=== PATIENT | female | born 1945 | race Caucasian/White ===

== ENCOUNTER 2017-07-27 11:20 | Emergency (ER) | payer MEDICARE ==
--- NOTE | 2017-07-27 11:44 | EDM.PDOC ---
ED HPI GENERAL MEDICAL PROBLEM - General Chief Complaint: Cardiovascular Problem Stated Complaint: AFIB Time Seen by Provider: 07/27/17 11:38 Source of Information: Reports: Patient, Family History Limitations: Reports: No Limitations - History of Present Illness INITIAL COMMENTS - FREE TEXT/NARRATIVE: pt arrived with a history of going into atrial fib on sat nite. She has a history of atrial fib and was converted in Nov 2016. Onset: Other ( sat nite. ) Duration: Hour(s):, Other (pt is becoming more sob. ) Location: Reports: Chest Improves with: Reports: None Associated Symptoms: Reports: Shortness of Breath Chest Pain Score (Numeric/FACES): 3 - Related Data Allergies Allergy/AdvReac Type Severity Reaction Status Date / Time amitriptyline Allergy Insomnia Verified 07/27/17 11:39 ampicillin Allergy Itching Verified 07/27/17 11:39 buspirone [From BuSpar] Allergy Other Verified 07/27/17 11:39 cephalexin Allergy Rash Verified 07/27/17 11:39 doxycycline Allergy Itching Verified 07/27/17 11:39 duloxetine [From Cymbalta] Allergy Cannot Verified 07/27/17 11:39 Remember erythromycin base Allergy Itching Verified 07/27/17 11:39 escitalopram [From Lexapro] Allergy Cannot Verified 07/27/17 11:39 Remember hydromorphone [From Dilaudid] Allergy Pain Verified 07/27/17 11:39 Iodinated Contrast- Oral and Allergy Rash Verified 07/27/17 11:39 IV Dye [Iodinated Contrast Media - Oral and] metronidazole Allergy Cannot Verified 07/27/17 11:39 Remember nortriptyline [From Pamelor] Allergy Insomnia Verified 07/27/17 11:39 paroxetine [From Paxil] Allergy Headache Verified 07/27/17 11:39 Penicillins Allergy Itching Verified 07/27/17 11:39 spironolactone Allergy Cannot Verified 07/27/17 11:39 Remember Sulfa (Sulfonamide Allergy Itching Verified 07/27/17 11:39 Antibiotics) vancomycin Allergy Rash Verified 07/27/17 11:39 levofloxacin [From Levaquin] AdvReac Nausea Verified 07/27/17 11:39 Home Meds: Home Meds Cholecalciferol (Vitamin D3) [Vitamin D3] 5,000 unit PO BEDTIME 10/07/16 [ History] Levothyroxine 137 mcg PO ACBREAKFAST 10/07/16 [History] Liothyronine [Cytomel] 15 mcg PO DAILY 10/07/16 [History] Magnesium 750 mg PO BEDTIME 10/07/16 [History] traZODone 100 mg PO BEDTIME 11/18/16 [History] Furosemide [Lasix] 20 mg PO DAILY #30 tablet 11/22/16 [Rx] Potassium Chloride [Klor-Con M20] 20 meq PO BID #60 tab.er 11/22/16 [Rx] *Bone Builder With Magnesium And Viatmin D6 6 tab PO BEDTIME 12/24/16 [History] Diltiazem [Cardizem CD] 180 mg PO BID 12/24/16 [History] Metoprolol Succinate 100 mg PO BID 12/24/16 [History] Rivaroxaban [Xarelto] 20 mg PO DAILY 12/24/16 [History] Digoxin 1 tab PO DAILY 07/27/17 [History] cycloSPORINE [Restasis] 1 drop EYEBOTH BID 07/27/17 [History] Past Medical History HEENT History: Reports: Impaired Vision Cardiovascular History: Reports: Afib, High Cholesterol, Hypertension Gastrointestinal History: Reports: GERD Genitourinary History: Reports: Other (See Below) Other Genitourinary History: 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: Reports: Musculoskeletal History: Reports: Fracture Other Musculoskeletal History: Collar bone fx Psychiatric History: Reports: Anxiety Endocrine/Metabolic History: Reports: Hypoparathyroidism Other Endocrine/Metabolic History: pseudo Hematologic History: Reports: Anemia, B12 Deficiency, Iron Deficiency Immunologic History: Reports: Other (See Below) Other Immunologic History: hepatitis Dermatologic History: Reports: Other (See Below) Other Dermatologic History: breast yeast - Infectious Disease History Infectious Disease History: Reports: Chicken Pox, Measles, Mumps Other Infectious Disease History: hepatitis - Past Surgical History HEENT Surgical History: Reports: Naso-Sinus Surgery, Tonsillectomy Female Surgical History: Reports: Breast Biopsy, Hysterectomy Musculoskeletal Surgical History: Reports: Knee Replacement Social & Family History - Tobacco Use Smoking Status *Q: Never Smoker Second Hand Smoke Exposure: No - Caffeine Use Caffeine Use: Reports: Coffee - Recreational Drug Use Recreational Drug Use: No ED ROS GENERAL - Review of Systems Review Of Systems: See Below Constitutional: Reports: No Symptoms HEENT: Reports: No Symptoms Respiratory: Reports: No Symptoms Cardiovascular: Reports: Palpitations, Other (pt has felt like her heart is irregular and racing ) Endocrine: Reports: No Symptoms GI/Abdominal: Reports: No Symptoms : Reports: No Symptoms Musculoskeletal: Reports: No Symptoms Skin: Reports: No Symptoms ED EXAM, GENERAL - Physical Exam Exam: See Below Free Text/Narrative:: pt arrived with a rapid heart rate which is irregular which started sat nite. She has been sob for the last 24 hours. Exam Limited By: No Limitations General Appearance: Alert, Anxious, Mild Distress Ears: Normal TMs Nose: Normal Inspection Throat/Mouth: Normal Inspection Head: Atraumatic Neck: Normal Inspection Respiratory/Chest: No Respiratory Distress, Rales Cardiovascular: Tachycardia, Irregularly Irregular GI/Abdominal: Soft, Rigid (Female) Exam: Deferred Rectal (Female) Exam: Deferred Back Exam: Normal Inspection Extremities: Normal Inspection Neurological: Alert, Oriented, Normal Cognition Course - Vital Signs Last Recorded V/S: Last Vital Signs Temp 36.0 C 07/27/17 16:25 Pulse 71 07/27/17 16:59 Resp 17 07/27/17 16:59 BP 104/65 07/27/17 16:59 Pulse Ox 97 07/27/17 16:59 - Orders/Labs/Meds Orders: Active Orders 24 hr Category Date Time Status EKG Documentation Completion [RC] ASDIRECTED Care 07/27/17 11:36 Active EKG Documentation Completion [RC] ASDIRECTED Care 07/27/17 16:47 Active Chest 1V Frontal [CR] Stat Exams 07/27/17 11:36 Taken Diltiazem [Cardizem] 100 mg Med 07/27/17 12:00 Active Sodium Chloride 0.9% [Normal Saline] 100 ml IV TITRATE EKG 12 Lead [EK] Routine Ther 07/27/17 11:36 Ordered EKG 12 Lead [EK] Stat Ther 07/27/17 16:47 Ordered Medication Orders Diltiazem HCl 100 mg/ Sodium (Chloride) 100 mls @ 5 mls/hr IV TITRATE ALEJANDRO; 5 MG /HR PRN Reason: Protocol Last Titration: 07/27/17 13:45 Dose: 15 mg/hr, 15 mls/hr Titration: 07/27/17 13:30 Dose: 10 mg/hr, 10 mls/hr Admin: 07/27/17 12:21 Dose: 5 mg/hr, 5 mls/hr Labs: Laboratory Tests 07/27/17 07/27/17 07/27/17 Range/Units 11:35 11:35 11:35 WBC 8.1 (4.5-11.0) K/uL RBC 5.21 (3.30-5.50) M/uL Hgb 14.4 (12.0-15.0) g/dL Hct 43.2 (36.0-48.0) % MCV 83 (80-98) fL MCH 28 (27-31) pg MCHC 33 (32-36) % Plt Count 305 (150-400) K/uL Neut % (Auto) 69 H (36-66) % Lymph % (Auto) 20 L (24-44) % Stephenson % (Auto) 8 H (2-6) % Eos % (Auto) 1 L (2-4) % Baso % (Auto) 1 (0-1) % Sodium 140 (140-148) mmol/L Potassium 4.4 (3.6-5.2) mmol/L Chloride 104 (100-108) mmol/L Carbon Dioxide 22 (21-32) mmol/L Anion Gap 13.7 (5.0-14.0) mmol/L BUN 17 (7-18) mg/dL Creatinine 1.2 H (0.6-1.0) mg/dL Est Cr Clr Drug Dosing 35.52 mL/min Estimated GFR (MDRD) 44 L (>60) Glucose 176 H (74-106) mg/dL Calcium 9.0 (8.5-10.1) mg/dL Total Bilirubin 0.3 (0.2-1.0) mg/dL AST 19 (15-37) U/L ALT 30 (12-78) U/L Alkaline Phosphatase 123 H (46-116) U/L Troponin I < 0.017 (0.000-0.056) ng/mL NT-Pro-B Natriuret Pep (5-125) pg/mL Total Protein 8.3 H (6.4-8.2) g/dL Albumin 3.4 (3.4-5.0) g/dL Globulin 4.9 H (2.3-3.5) g/dL Albumin/Globulin Ratio 0.7 L (1.2-2.2) TSH, Ultra Sensitive (0.358-3.740) uIU/mL Urine Color Urine Appearance Urine pH (4.5-8.0) Ur Specific [place] (1.008-1.030) Urine Protein (NEGATIVE) mg/dL Urine Glucose (UA) (NEGATIVE) mg/dL Urine Ketones (NEGATIVE) mg/dL Urine Occult Blood (NEGATIVE) Urine Nitrite (NEGATIVE) Urine Bilirubin (NEGATIVE) Urine Urobilinogen (NORMAL) mg/dL Ur Leukocyte Esterase (NEGATIVE) Urine RBC (0-5) Urine WBC (0-5) Ur Epithelial Cells Amorphous Sediment Urine Bacteria Urine Mucus Digoxin (0.90-2.00) ng/mL 07/27/17 07/27/17 07/27/17 Range/Units 11:35 11:35 11:35 WBC (4.5-11.0) K/uL RBC (3.30-5.50) M/uL Hgb (12.0-15.0) g/dL Hct (36.0-48.0) % MCV (80-98) fL MCH (27-31) pg MCHC (32-36) % Plt Count (150-400) K/uL Neut % (Auto) (36-66) % Lymph % (Auto) (24-44) % Stephenson % (Auto) (2-6) % Eos % (Auto) (2-4) % Baso % (Auto) (0-1) % Sodium (140-148) mmol/L Potassium (3.6-5.2) mmol/L Chloride (100-108) mmol/L Carbon Dioxide (21-32) mmol/L Anion Gap (5.0-14.0) mmol/L BUN (7-18) mg/dL Creatinine (0.6-1.0) mg/dL Est Cr Clr Drug Dosing mL/min Estimated GFR (MDRD) (>60) Glucose (74-106) mg/dL Calcium (8.5-10.1) mg/dL Total Bilirubin (0.2-1.0) mg/dL AST (15-37) U/L ALT (12-78) U/L Alkaline Phosphatase (46-116) U/L Troponin I (0.000-0.056) ng/mL NT-Pro-B Natriuret Pep 1825 H (5-125) pg/mL Total Protein (6.4-8.2) g/dL Albumin (3.4-5.0) g/dL Globulin (2.3-3.5) g/dL Albumin/Globulin Ratio (1.2-2.2) TSH, Ultra Sensitive 1.216 (0.358-3.740) uIU/mL Urine Color Urine Appearance Urine pH (4.5-8.0) Ur Specific [place] (1.008-1.030) Urine Protein (NEGATIVE) mg/dL Urine Glucose (UA) (NEGATIVE) mg/dL Urine Ketones (NEGATIVE) mg/dL Urine Occult Blood (NEGATIVE) Urine Nitrite (NEGATIVE) Urine Bilirubin (NEGATIVE) Urine Urobilinogen (NORMAL) mg/dL Ur Leukocyte Esterase (NEGATIVE) Urine RBC (0-5) Urine WBC (0-5) Ur Epithelial Cells Amorphous Sediment Urine Bacteria Urine Mucus Digoxin 1.16 (0.90-2.00) ng/mL 07/27/17 Range/Units 12:37 WBC (4.5-11.0) K/uL RBC (3.30-5.50) M/uL Hgb (12.0-15.0) g/dL Hct (36.0-48.0) % MCV (80-98) fL MCH (27-31) pg MCHC (32-36) % Plt Count (150-400) K/uL Neut % (Auto) (36-66) % Lymph % (Auto) (24-44) % Stephenson % (Auto) (2-6) % Eos % (Auto) (2-4) % Baso % (Auto) (0-1) % Sodium (140-148) mmol/L Potassium (3.6-5.2) mmol/L Chloride (100-108) mmol/L Carbon Dioxide (21-32) mmol/L Anion Gap (5.0-14.0) mmol/L BUN (7-18) mg/dL Creatinine (0.6-1.0) mg/dL Est Cr Clr Drug Dosing mL/min Estimated GFR (MDRD) (>60) Glucose (74-106) mg/dL Calcium (8.5-10.1) mg/dL Total Bilirubin (0.2-1.0) mg/dL AST (15-37) U/L ALT (12-78) U/L Alkaline Phosphatase (46-116) U/L Troponin I (0.000-0.056) ng/mL NT-Pro-B Natriuret Pep (5-125) pg/mL Total Protein (6.4-8.2) g/dL Albumin (3.4-5.0) g/dL Globulin (2.3-3.5) g/dL Albumin/Globulin Ratio (1.2-2.2) TSH, Ultra Sensitive (0.358-3.740) uIU/mL Urine Color Yellow Urine Appearance Clear Urine pH 6.0 (4.5-8.0) Ur Specific [place] 1.010 (1.008-1.030) Urine Protein Negative (NEGATIVE) mg/dL Urine Glucose (UA) Normal (NEGATIVE) mg/dL Urine Ketones Negative (NEGATIVE) mg/dL Urine Occult Blood Negative (NEGATIVE) Urine Nitrite Negative (NEGATIVE) Urine Bilirubin Negative (NEGATIVE) Urine Urobilinogen Normal (NORMAL) mg/dL Ur Leukocyte Esterase Negative (NEGATIVE) Urine RBC 0-5 (0-5) Urine WBC 5-10 H (0-5) Ur Epithelial Cells Moderate Amorphous Sediment Not seen Urine Bacteria Few Urine Mucus Not seen Digoxin (0.90-2.00) ng/mL Meds: Medications Generic Name Dose Route Start Last Admin Trade Name Freq PRN Reason Stop Dose Admin Diltiazem HCl 100 mg/ Sodium 100 mls @ 5 mls/hr 07/27/17 12:00 07/27/17 13:45 Chloride IV 15 mg/hr TITRATE ALEJANDRO 15 mls/hr Protocol Titration 5 MG/HR Discontinued Medications Generic Name Dose Route Start Last Admin Trade Name Freq PRN Reason Stop Dose Admin Diltiazem HCl 10 mg 07/27/17 11:57 07/27/17 12:12 Diltiazem IVPUSH 07/27/17 11:58 10 mg ONETIME ONE Administration Furosemide 60 mg 07/27/17 13:50 07/27/17 14:38 Lasix IVPUSH 07/27/17 13:51 60 mg ONETIME ONE Administration Propofol Confirm 07/27/17 16:42 Diprivan 20 Ml Administered 07/27/17 16:43 Dose 200 mg .ROUTE .STK-MED ONE - Re-Assessments/Exams Free Text/Narrative Re-Assessment/Exam: 07/27/17 14:37 pt had a rapid rate in the 140s. . Cardizem drip was started and it brought the rate down to 80-90. 07/27/17 17:14 pt did slow down with the cardizem but did not convert. Dr Joshi consulted and a decision was made to electrically cardivert the pt. This was done with out dfficulty. Departure - Departure Time of Disposition: 17:15 Disposition: Home, Self-Care 01 Condition: Fair Clinical Impression: Atrial fibrillation Referrals: PCP,None [Primary Care Provider] - Forms: ED Department Discharge Care Plan Goals: cont same meds, appt with cardiology as soon as she can get in, appt with Nicole Herzog next week. - My Orders Last 24 Hours: My Active Orders 07/27/17 11:36 EKG Documentation Completion [RC] ASDIRECTED Chest 1V Frontal [CR] Stat EKG 12 Lead [EK] Routine 07/27/17 12:00 Diltiazem [Cardizem] 100 mg Sodium Chloride 0.9% [Normal Saline] 100 ml IV TITRATE - Assessment/Plan Last 24 Hours: My Active Orders 07/27/17 11:36 EKG Documentation Completion [RC] ASDIRECTED Chest 1V Frontal [CR] Stat EKG 12 Lead [EK] Routine 07/27/17 12:00 Diltiazem [Cardizem] 100 mg Sodium Chloride 0.9% [Normal Saline] 100 ml IV TITRATE
[2017-07-27] MEDS ORDERED: Diltiazem 25 MG/5 ML SDV IVPUSH ONE (11:57)
[2017-07-27] MEDS ORDERED: Diltiazem 100 MG in Sodium Chloride 0.9% 100 ML IV SCH (12:00)
[2017-07-27] MEDS ORDERED: Furosemide 40 MG/4 ML VIAL IVPUSH ONE (13:50)
[2017-07-27] MEDS ORDERED: Propofol 200 MG/20 ML SDV ONE (16:42)
--- NOTE | 2017-07-27 16:55 | PCM.CONS ---
H&P History of Present Illness - General Date of Service: 07/27/17 Source of Information: Patient, Old Records, Provider, RN Notes Reviewed History Limitations: Reports: No Limitations - History of Present Illness Initial Comments - Free Text/Narative: Ms. Del Rio is a 72-year-old woman who I been asked to see in the emergency department by Dr. Ledesma for recommendations concerning management of atrial fibrillation with rapid ventricular response. Ms. Del Rio has one previous episode of atrial fibrillation which occurred approximately 8 months ago. At that time the duration of her atrial fibrillation was unknown, she was treated or rate control and started on anticoagulation. She saw cardiology for follow- up and after adequate anticoagulation was cardioverted to sinus rhythm. She has remained on anticoagulation with Xarelto as well as rate controlling medications. She did well until 2 nights ago when she noted onset of rapid irregular heart rhythm. This was associated with symptoms of shortness of breath and mild lightheadedness. After did not resolve for the past 2 days she presented to the emergency department for further evaluation and management. She is been given a bolus dose of IV Cardizem and started on a continuous infusion of IV Cardizem. Rate control has improved but she remains in atrial fibrillation. Previous echocardiogram obtained after her first episode of atrial fibrillation shows preserved left ventricular function with moderate mitral regurgitation and normal chamber sizes. Chest Pain Score (Numeric/FACES): 3 - Related Data Allergies/Adverse Reactions: Allergies Allergy/AdvReac Type Severity Reaction Status Date / Time amitriptyline Allergy Insomnia Verified 07/27/17 11:39 ampicillin Allergy Itching Verified 07/27/17 11:39 buspirone [From BuSpar] Allergy Other Verified 07/27/17 11:39 cephalexin Allergy Rash Verified 07/27/17 11:39 doxycycline Allergy Itching Verified 07/27/17 11:39 duloxetine [From Cymbalta] Allergy Cannot Verified 07/27/17 11:39 Remember erythromycin base Allergy Itching Verified 07/27/17 11:39 escitalopram [From Lexapro] Allergy Cannot Verified 07/27/17 11:39 Remember hydromorphone [From Dilaudid] Allergy Pain Verified 07/27/17 11:39 Iodinated Contrast- Oral and Allergy Rash Verified 07/27/17 11:39 IV Dye [Iodinated Contrast Media - Oral and] metronidazole Allergy Cannot Verified 07/27/17 11:39 Remember nortriptyline [From Pamelor] Allergy Insomnia Verified 07/27/17 11:39 paroxetine [From Paxil] Allergy Headache Verified 07/27/17 11:39 Penicillins Allergy Itching Verified 07/27/17 11:39 spironolactone Allergy Cannot Verified 07/27/17 11:39 Remember Sulfa (Sulfonamide Allergy Itching Verified 07/27/17 11:39 Antibiotics) vancomycin Allergy Rash Verified 07/27/17 11:39 levofloxacin [From Levaquin] AdvReac Nausea Verified 07/27/17 11:39 Home Medications: Home Meds Cholecalciferol (Vitamin D3) [Vitamin D3] 5,000 unit PO BEDTIME 10/07/16 [ History] Levothyroxine 137 mcg PO ACBREAKFAST 10/07/16 [History] Liothyronine [Cytomel] 15 mcg PO DAILY 10/07/16 [History] Magnesium 750 mg PO BEDTIME 10/07/16 [History] traZODone 100 mg PO BEDTIME 11/18/16 [History] Furosemide [Lasix] 20 mg PO DAILY #30 tablet 11/22/16 [Rx] Potassium Chloride [Klor-Con M20] 20 meq PO BID #60 tab.er 11/22/16 [Rx] *Bone Builder With Magnesium And Viatmin D6 6 tab PO BEDTIME 12/24/16 [History] Diltiazem [Cardizem CD] 180 mg PO BID 12/24/16 [History] Metoprolol Succinate 100 mg PO BID 12/24/16 [History] Rivaroxaban [Xarelto] 20 mg PO DAILY 12/24/16 [History] Digoxin 1 tab PO DAILY 07/27/17 [History] cycloSPORINE [Restasis] 1 drop EYEBOTH BID 07/27/17 [History] Past Medical History HEENT History: Reports: Impaired Vision Cardiovascular History: Reports: Afib, High Cholesterol, Hypertension Gastrointestinal History: Reports: GERD Genitourinary History: Reports: Other (See Below) Other Genitourinary History: was on an antibiotic intermediate designer 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 [employer]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: Musculoskeletal History: Reports: Fracture Other Musculoskeletal History: Collar bone fx Psychiatric History: Reports: Anxiety Endocrine/Metabolic History: Reports: Hypoparathyroidism Other Endocrine/Metabolic History: pseudo Hematologic History: Reports: Anemia, B12 Deficiency, Iron Deficiency Immunologic History: Reports: Other (See Below) Other Immunologic History: hepatitis Dermatologic History: Reports: Other (See Below) Other Dermatologic History: breast yeast - Infectious Disease History Infectious Disease History: Reports: Chicken Pox, Measles, Mumps Other Infectious Disease History: hepatitis - Past Surgical History HEENT Surgical History: Reports: Naso-Sinus Surgery, Tonsillectomy Female Surgical History: Reports: Breast Biopsy, Hysterectomy Musculoskeletal Surgical History: Reports: Knee Replacement Social & Family History - Tobacco Use Smoking Status *Q: Never Smoker Second Hand Smoke Exposure: No - Caffeine Use Caffeine Use: Reports: Coffee - Recreational Drug Use Recreational Drug Use: No H&P Review of Systems - Review of Systems: Review Of Systems: See Below General: Reports: Weakness. Denies: Fever, Chills Pulmonary: Reports: Shortness of Breath. Denies: Wheezing, Pleuritic Chest Pain , Cough, Sputum, Hemoptysis Cardiovascular: Reports: Dyspnea on Exertion, Lightheadedness. Denies: Chest Pain, Palpitations, Orthopnea, PND, Edema Gastrointestinal: Reports: No Symptoms Neurological: Reports: No Symptoms Exam - Exam Exam: See Below - Vital Signs Vital Signs: Last Vital Signs Temp 96.8 F 07/27/17 16:25 Pulse 84 07/27/17 16:25 Resp 12 07/27/17 16:25 BP 135/79 07/27/17 16:25 Pulse Ox 98 07/27/17 16:25 Weight: 240 lb - Exam Quality Assessment: Supplemental Oxygen General: Alert, Oriented, Cooperative, Mild Distress Neck: Supple, Trachea Midline, +2 Carotid Pulse wo Bruit Lungs: Clear to Auscultation, Normal Respiratory Effort Cardiovascular: Normal S1, Normal S2, Irregular Rhythm, Tachycardia. No: Bradycardia, Systolic Murmur, Diastolic Murmur GI/Abdominal Exam: Normal Bowel Sounds, Soft, Non-Tender, No Distention Back Exam: Normal Inspection, Full Range of Motion, NT Extremities: Normal Inspection, No Pedal Edema Skin: Warm, Dry, Intact - Patient Data Lab Results Last 24 hrs: Laboratory Results - last 24 hr 07/27/17 07/27/17 07/27/17 Range/Units 11:35 11:35 11:35 WBC 8.1 (4.5-11.0) K/uL RBC 5.21 (3.30-5.50) M/uL Hgb 14.4 (12.0-15.0) g/dL Hct 43.2 (36.0-48.0) % MCV 83 (80-98) fL MCH 28 (27-31) pg MCHC 33 (32-36) % Plt Count 305 (150-400) K/uL Neut % (Auto) 69 H (36-66) % Lymph % (Auto) 20 L (24-44) % [place] % (Auto) 8 H (2-6) % Eos % (Auto) 1 L (2-4) % Baso % (Auto) 1 (0-1) % Sodium 140 (140-148) mmol/L Potassium 4.4 (3.6-5.2) mmol/L Chloride 104 (100-108) mmol/L Carbon Dioxide 22 (21-32) mmol/L Anion Gap 13.7 (5.0-14.0) mmol/L BUN 17 (7-18) mg/dL Creatinine 1.2 H (0.6-1.0) mg/dL Est Cr Clr Drug Dosing 35.52 mL/min Estimated GFR (MDRD) 44 L (>60) Glucose 176 H (74-106) mg/dL Calcium 9.0 (8.5-10.1) mg/dL Total Bilirubin 0.3 (0.2-1.0) mg/dL AST 19 (15-37) U/L ALT 30 (12-78) U/L Alkaline Phosphatase 123 H (46-116) U/L Troponin I < 0.017 (0.000-0.056) ng/mL NT-Pro-B Natriuret Pep (5-125) pg/mL Total Protein 8.3 H (6.4-8.2) g/dL Albumin 3.4 (3.4-5.0) g/dL Globulin 4.9 H (2.3-3.5) g/dL Albumin/Globulin Ratio 0.7 L (1.2-2.2) TSH, Ultra Sensitive (0.358-3.740) uIU/mL Urine Color Urine Appearance Urine pH (4.5-8.0) Ur Specific [place] (1.008-1.030) Urine Protein (NEGATIVE) mg/dL Urine Glucose (UA) (NEGATIVE) mg/dL Urine Ketones (NEGATIVE) mg/dL Urine Occult Blood (NEGATIVE) Urine Nitrite (NEGATIVE) Urine Bilirubin (NEGATIVE) Urine Urobilinogen (NORMAL) mg/dL Ur Leukocyte Esterase (NEGATIVE) Urine RBC (0-5) Urine WBC (0-5) Ur Epithelial Cells Amorphous Sediment Urine Bacteria Urine Mucus Digoxin (0.90-2.00) ng/mL 07/27/17 07/27/17 07/27/17 Range/Units 11:35 11:35 11:35 WBC (4.5-11.0) K/uL RBC (3.30-5.50) M/uL Hgb (12.0-15.0) g/dL Hct (36.0-48.0) % MCV (80-98) fL MCH (27-31) pg MCHC (32-36) % Plt Count (150-400) K/uL Neut % (Auto) (36-66) % Lymph % (Auto) (24-44) % [place] % (Auto) (2-6) % Eos % (Auto) (2-4) % Baso % (Auto) (0-1) % Sodium (140-148) mmol/L Potassium (3.6-5.2) mmol/L Chloride (100-108) mmol/L Carbon Dioxide (21-32) mmol/L Anion Gap (5.0-14.0) mmol/L BUN (7-18) mg/dL Creatinine (0.6-1.0) mg/dL Est Cr Clr Drug Dosing mL/min Estimated GFR (MDRD) (>60) Glucose (74-106) mg/dL Calcium (8.5-10.1) mg/dL Total Bilirubin (0.2-1.0) mg/dL AST (15-37) U/L ALT (12-78) U/L Alkaline Phosphatase (46-116) U/L Troponin I (0.000-0.056) ng/mL NT-Pro-B Natriuret Pep 1825 H (5-125) pg/mL Total Protein (6.4-8.2) g/dL Albumin (3.4-5.0) g/dL Globulin (2.3-3.5) g/dL Albumin/Globulin Ratio (1.2-2.2) TSH, Ultra Sensitive 1.216 (0.358-3.740) uIU/mL Urine Color Urine Appearance Urine pH (4.5-8.0) Ur Specific [place] (1.008-1.030) Urine Protein (NEGATIVE) mg/dL Urine Glucose (UA) (NEGATIVE) mg/dL Urine Ketones (NEGATIVE) mg/dL Urine Occult Blood (NEGATIVE) Urine Nitrite (NEGATIVE) Urine Bilirubin (NEGATIVE) Urine Urobilinogen (NORMAL) mg/dL Ur Leukocyte Esterase (NEGATIVE) Urine RBC (0-5) Urine WBC (0-5) Ur Epithelial Cells Amorphous Sediment Urine Bacteria Urine Mucus Digoxin 1.16 (0.90-2.00) ng/mL 07/27/17 Range/Units 12:37 WBC (4.5-11.0) K/uL RBC (3.30-5.50) M/uL Hgb (12.0-15.0) g/dL Hct (36.0-48.0) % MCV (80-98) fL MCH (27-31) pg MCHC (32-36) % Plt Count (150-400) K/uL Neut % (Auto) (36-66) % Lymph % (Auto) (24-44) % [place] % (Auto) (2-6) % Eos % (Auto) (2-4) % Baso % (Auto) (0-1) % Sodium (140-148) mmol/L Potassium (3.6-5.2) mmol/L Chloride (100-108) mmol/L Carbon Dioxide (21-32) mmol/L Anion Gap (5.0-14.0) mmol/L BUN (7-18) mg/dL Creatinine (0.6-1.0) mg/dL Est Cr Clr Drug Dosing mL/min Estimated GFR (MDRD) (>60) Glucose (74-106) mg/dL Calcium (8.5-10.1) mg/dL Total Bilirubin (0.2-1.0) mg/dL AST (15-37) U/L ALT (12-78) U/L Alkaline Phosphatase (46-116) U/L Troponin I (0.000-0.056) ng/mL NT-Pro-B Natriuret Pep (5-125) pg/mL Total Protein (6.4-8.2) g/dL Albumin (3.4-5.0) g/dL Globulin (2.3-3.5) g/dL Albumin/Globulin Ratio (1.2-2.2) TSH, Ultra Sensitive (0.358-3.740) uIU/mL Urine Color Yellow Urine Appearance Clear Urine pH 6.0 (4.5-8.0) Ur Specific [place] 1.010 (1.008-1.030) Urine Protein Negative (NEGATIVE) mg/dL Urine Glucose (UA) Normal (NEGATIVE) mg/dL Urine Ketones Negative (NEGATIVE) mg/dL Urine Occult Blood Negative (NEGATIVE) Urine Nitrite Negative (NEGATIVE) Urine Bilirubin Negative (NEGATIVE) Urine Urobilinogen Normal (NORMAL) mg/dL Ur Leukocyte Esterase Negative (NEGATIVE) Urine RBC 0-5 (0-5) Urine WBC 5-10 H (0-5) Ur Epithelial Cells Moderate Amorphous Sediment Not seen Urine Bacteria Few Urine Mucus Not seen Digoxin (0.90-2.00) ng/mL Result Diagrams: 07/27/17 11:35 07/27/17 11:35 Consult PN Assessment/Plan Procedures: Procedures ASSAY OF CK (CPK) (11/18/16) ASSAY OF CREATININE (12/08/16) ASSAY OF FREE THYROXINE (11/18/16) ASSAY OF MAGNESIUM (11/18/16) ASSAY OF NATRIURETIC PEPTIDE (12/24/16) ASSAY OF PHOSPHORUS (11/18/16) ASSAY OF TROPONIN QUANT (12/24/16) ASSAY THYROID STIM HORMONE (11/18/16) CHEST X-RAY 1 VIEW FRONTAL (12/24/16) CHEST X-RAY 2VW FRONTAL&LATL (10/07/16) COMP SCREEN MAMMOGRAM ADD-ON (09/10/16) COMPLETE CBC W/AUTO DIFF WBC (12/24/16) COMPREHEN METABOLIC PANEL (12/24/16) CT ANGIOGRAPHY CHEST (12/09/16) ELECTROCARDIOGRAM REPORT (10/07/16) ELECTROCARDIOGRAM TRACING (12/24/16) EMERGENCY DEPT VISIT (12/24/16) EMERGENCY DEPT VISIT (10/07/16) EMERGENCY DEPT VISIT (10/07/16) HYDRATE IV INFUSION ADD-ON (11/18/16) METABOLIC PANEL TOTAL CA (11/18/16) MRI LUMBAR SPINE W/O DYE (07/06/17) PROTHROMBIN TIME (12/24/16) ROUTINE VENIPUNCTURE (12/24/16) THER/PROPH/DIAG IV INF INIT (11/18/16) THROMBOPLASTIN TIME PARTIAL (11/18/16) TRANSVAGINAL US NON-OB (12/07/14) TTE W/DOPPLER COMPLETE (11/18/16) TX/PRO/DX INJ NEW DRUG ADDON (11/18/16) TX/PRO/DX INJ SAME DRUG BABY FORMULA WORKER (11/18/16) US EXAM ABDOM COMPLETE (12/07/14) US EXAM PELVIC LIMITED (12/07/14) X-RAY BEND ONLY L-S SPINE (06/17/17) X-RAY EXAM L-S SPINE 2/3 VWS (06/08/17) X-RAY EXAM NECK SPINE 2-3 VW (06/08/17) Problem List Initiated/Reviewed/Updated: Yes My Orders Last 24 Hours: My Active Orders 07/27/17 16:47 EKG Documentation Completion [RC] ASDIRECTED EKG 12 Lead [EK] Stat Plan: ASSESSMENT AND RECOMMENDATION ATRIAL FIBRILLATION WITH RAPID VENTRICULAR RESPONSE-second episode, first episode occurred approximately 8 months ago. Since then has been anticoagulated and was cardioverted approximately 6 months ago. As far she knows she is remained in sinus rhythm since that time until 2 nights prior to this evaluation. She feels that she is been in atrial fibrillation with rapid rate and stay at time and has had associated symptoms of weakness, lightheadedness, and dyspnea. EKG and monitoring in the emergency department confirms atrial fibrillation with rapid response. Rate control is better after she was given IV Cardizem bolus and continuous infusion of IV Cardizem. I discussed options for management this time, we currently have no ICU beds available. Option #1 would be to proceed with elective electrical cardioversion in the emergency department versus option 2, continue rate control and transfer to another facility for ongoing management and evaluation. She has elected to proceed with cardioversion. -Proceed with electrical cardioversion -Plan for discharge to home from emergency department if cardioversion is successful -Continue anticoagulation with Xarelto -Follow-up with primary care provider within one week -Follow-up with cardiology Requesting Provider: VICTORINA Date Consult Requested: 07/27/17 Reason for Consult: Atrial fibrillation with rapid ventricular response Patient History Reviewed: Yes
--- NOTE | 2017-07-27 17:00 | PCM.OPNOTE ---
- General Post-Op/Procedure Note Date of Surgery/Procedure: 07/27/17 Operative Procedure(s): Electrical cardioversion Pre Op Diagnosis: Atrial fibrillation with rapid ventricular response Post-Op Diagnosis: Atrial fibrillation with rapid ventricular response, successfully converted to sinus rhythm using electrical cardioversion Anesthesia Technique: Moderate Sedation Primary Surgeon: Jignesh Joshi Anesthesia Provider: Zachary Li Complications: None Condition: Good Free Text/Narrative:: Ms. Del Rio is a 72-year-old woman who presented to the emergency department with a 2 day history of rapid irregular heart rhythm. She has one previous episode of atrial fibrillation occurring approximately 8 months ago, she underwent successful cardioversion 6 months ago and has remained on anticoagulation since that time. EKG and monitoring did document atrial fibrillation with rapid ventricular response. I reviewed with her options for management at this time including ongoing rate control and transfer to another facility that has available ICU beds, versus proceeding with electrical cardioversion today in the emergency department. Risks and goals of each option were reviewed with the patient and she has decided to proceed with electrical cardioversion. Mr. Li from the anesthesia service provided IV sedation, after adequate sedation was achieved she was successfully converted to sinus rhythm using 200 J of energy delivered in a synchronized fashion. She will be discharged from the emergency department after she is recovered from IV sedation and has been instructed not to drive for a period of 24 hours. Follow- up appointment should be scheduled with her primary care provider within one week. She will also need follow-up with cardiology in [facility].
[2017-07-27 17:07] VITALS: BP 104/65
--- NOTE | 2017-07-28 00:42 | ANES ---
DATE OF SERVICE: 07/27/2017 A 72-year-old lady in the emergency room in atrial fibrillation. I was called by the emergency room and asked by Dr. Joshi to sedate the patient for a cardioversion. She is on oxygen. She last ate at 9:00 a.m. The procedure was explained to her in detail. All questions were answered. Consent was signed. She has had a cardioversion in the past. Her nasal O2 with her O2 at 98% was discontinued and she was started on Ambu bag. She was given 100 mg of propofol intravenously and when adequate sedation was reached, she was cardioverted by Dr. Joshi x1. She converted to regular sinus rhythm. After approximately 10 minutes, she was breathing on her own, answering questions, responding appropriately. SaO2 at this time was 99%. She was put back on the nasal prongs and sat up a little bit. She tolerated the procedure well. Zachary Li CRNA /[id number]
--- NOTE | 2017-07-28 09:17 | CR ---
Chest 1V Frontal HISTORY: Shortness of breath COMPARISON: 12/24/2016. FINDINGS: Cardiac size and pulmonary vessels normal. Slight rotation of the film to the left. No foca l infiltrates or effusions.
== END 2017-07-27 17:53 | disposition home or self-care (01) ==
LOC: JP.ED 11:20
DX: I48.91 Unspecified atrial fibrillation (principal); E78.00 Pure hypercholesterolemia, unspecified; I10 Essential (primary) hypertension; K21.9 Gastro-esophageal reflux disease without esophagitis; F41.9 Anxiety disorder, unspecified; E20.9 Hypoparathyroidism, unspecified; Z86.2 Personal history of diseases of the blood and blood-forming organs and certain disorders involving the immune mechanism; Z79.899 Other long term (current) drug therapy; Z88.0 Allergy status to penicillin; Z88.2 Allergy status to sulfonamides; Z88.1 Allergy status to other antibiotic agents; Z88.8 Allergy status to other drugs, medicaments and biological substances; Z91.041 Radiographic dye allergy status; Z88.5 Allergy status to narcotic agent; R06.02 Shortness of breath
CPT/HCPCS: 36415; 71010; 80053; 80162; 81001; 83880; 84443; 84484; 85025; 93005; 93010; 96374; 96375; 99284; J1940; J2704; J3490; J7030

== ENCOUNTER 2017-08-04 14:11 | Emergency (ER) | payer MEDICARE ==
[2017-08-04 14:20] VITALS: BP 122/97
--- NOTE | 2017-08-04 15:16 | EDM.PDOC ---
ED HPI GENERAL MEDICAL PROBLEM - General Chief Complaint: Cardiovascular Problem Stated Complaint: SOB DIZZY Time Seen by Provider: 08/04/17 14:25 Source of Information: Reports: Patient History Limitations: Reports: No Limitations - History of Present Illness INITIAL COMMENTS - FREE TEXT/NARRATIVE: 72-year-old female with recently diagnosed atrial fibrillation was getting ready to go to the clinic today for a recheck to document she was still in sinus rhythm, and has a cardiology appointment at [place] coming up later this week but when she got out of the shower she felt lightheaded and short of breath and was concerned she was back in atrial fibrillation so came to the emergency room. On arrival she was anxious but stable. She denied any pain. Denied nausea or vomiting. Onset: Unknown/Unsure Severity: Mild Associated Symptoms: Reports: Malaise, Shortness of Breath, Weakness. Denies: Confusion, Chest Pain, Diaphoresis, Nausea/Vomiting - Related Data Allergies Allergy/AdvReac Type Severity Reaction Status Date / Time amitriptyline Allergy Insomnia Verified 08/04/17 14:21 ampicillin Allergy Itching Verified 08/04/17 14:21 buspirone [From BuSpar] Allergy Other Verified 08/04/17 14:21 cephalexin Allergy Rash Verified 08/04/17 14:21 doxycycline Allergy Itching Verified 08/04/17 14:21 duloxetine [From Cymbalta] Allergy Cannot Verified 08/04/17 14:21 Remember erythromycin base Allergy Itching Verified 08/04/17 14:21 escitalopram [From Lexapro] Allergy Cannot Verified 08/04/17 14:21 Remember hydromorphone [From Dilaudid] Allergy Pain Verified 08/04/17 14:21 Iodinated Contrast- Oral and Allergy Rash Verified 08/04/17 14:21 IV Dye [Iodinated Contrast Media - Oral and] metronidazole Allergy Cannot Verified 08/04/17 14:21 Remember nortriptyline [From Pamelor] Allergy Insomnia Verified 08/04/17 14:21 paroxetine [From Paxil] Allergy Headache Verified 08/04/17 14:21 Penicillins Allergy Itching Verified 08/04/17 14:21 spironolactone Allergy Cannot Verified 08/04/17 14:21 Remember Sulfa (Sulfonamide Allergy Itching Verified 08/04/17 14:21 Antibiotics) vancomycin Allergy Rash Verified 08/04/17 14:21 levofloxacin [From Levaquin] AdvReac Nausea Verified 08/04/17 14:21 Home Meds: Home Meds Cholecalciferol (Vitamin D3) [Vitamin D3] 5,000 unit PO BEDTIME 10/07/16 [ History] Levothyroxine 137 mcg PO ACBREAKFAST 10/07/16 [History] Liothyronine [Cytomel] 15 mcg PO DAILY 10/07/16 [History] Magnesium 750 mg PO BEDTIME 10/07/16 [History] traZODone 100 mg PO BEDTIME 11/18/16 [History] Furosemide [Lasix] 20 mg PO DAILY #30 tablet 11/22/16 [Rx] Potassium Chloride [Klor-Con M20] 20 meq PO BID #60 tab.er 11/22/16 [Rx] *Bone Builder With Magnesium And Viatmin D6 6 tab PO BEDTIME 12/24/16 [History] Diltiazem [Cardizem CD] 180 mg PO BID 12/24/16 [History] Metoprolol Succinate 100 mg PO BID 12/24/16 [History] Rivaroxaban [Xarelto] 20 mg PO DAILY 12/24/16 [History] Digoxin 1 tab PO DAILY 07/27/17 [History] cycloSPORINE [Restasis] 1 drop EYEBOTH BID 07/27/17 [History] Past Medical History HEENT History: Reports: Impaired Vision Cardiovascular History: Reports: Afib, High Cholesterol, Hypertension Gastrointestinal History: Reports: GERD Genitourinary History: Reports: Other (See Below) Other Genitourinary History: was on an antibiotic ferry terminal agent 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 PSYCHOLOGY FELLOW History: Reports: Musculoskeletal History: Reports: Fracture Other Musculoskeletal History: Collar bone fx Psychiatric History: Reports: Anxiety Endocrine/Metabolic History: Reports: Hypoparathyroidism Other Endocrine/Metabolic History: pseudo Hematologic History: Reports: Anemia, B12 Deficiency, Iron Deficiency Immunologic History: Reports: Other (See Below) Other Immunologic History: hepatitis Dermatologic History: Reports: Other (See Below) Other Dermatologic History: breast yeast - Infectious Disease History Infectious Disease History: Reports: Chicken Pox, Measles, Mumps Other Infectious Disease History: hepatitis - Past Surgical History HEENT Surgical History: Reports: Naso-Sinus Surgery, Tonsillectomy Female Surgical History: Reports: Breast Biopsy, Hysterectomy Musculoskeletal Surgical History: Reports: Knee Replacement Social & Family History - Tobacco Use Smoking Status *Q: Never Smoker Second Hand Smoke Exposure: No - Caffeine Use Caffeine Use: Reports: Coffee - Recreational Drug Use Recreational Drug Use: No ED ROS GENERAL - Review of Systems Review Of Systems: See Below Constitutional: Reports: Malaise. Denies: Fever, Chills Respiratory: Denies: Shortness of Breath Cardiovascular: Reports: Palpitations GI/Abdominal: Denies: Abdominal Pain, Nausea, Vomiting Musculoskeletal: Reports: No Symptoms Skin: Reports: No Symptoms Neurological: Reports: Dizziness. Denies: Headache ED EXAM, GENERAL - Physical Exam Exam: See Below Exam Limited By: No Limitations General Appearance: Alert, No Apparent Distress Eye Exam: Bilateral Eye: Normal Inspection Neck: Normal Inspection Respiratory/Chest: No Respiratory Distress, Lungs Clear Cardiovascular: Regular Rate, Rhythm GI/Abdominal: Non-Tender Neurological: Alert, Oriented Psychiatric: Anxious Skin Exam: Warm, Dry EKG INTERPRETATION Rhythm: NSR Course - Vital Signs Last Recorded V/S: Last Vital Signs Temp 98.6 F 08/04/17 14:19 Pulse 60 08/04/17 14:19 Resp 20 08/04/17 14:19 BP 122/97 H 08/04/17 14:19 Pulse Ox 98 08/04/17 14:19 - Re-Assessments/Exams Free Text/Narrative Re-Assessment/Exam: 08/04/17 15:14 An EKG was done which confirmed the patient was in normal sinus rhythm with a rate of 58. I discussed the findings with the patient, she felt much better but wanted copies of her labs from last week. I provided the labs and also reviewed them with her, she continued to feel much better. I think there was a strong anxiety component to her presentation. I asked her to continue her medications as prescribed and follow up with cardiology as scheduled, taking a copy of her EKG and labs with her to her appointment. She can also return anytime if she feels symptoms recur. Departure - Departure Time of Disposition: 15:32 Disposition: Home, Self-Care 01 Condition: Good Clinical Impression: Generalized anxiety disorder, Intermittent palpitations Instructions: Atrial Fibrillation, [id number] Referrals: PCP,None [Primary Care Provider] - Forms: ED Department Discharge Care Plan Goals: Continue your regular medications, and follow up with cardiology as scheduled. Return any time if worsening or concerns. Take EKG and labs with you to your appointment.
== END 2017-08-04 15:31 | disposition home or self-care (01) ==
LOC: JP.ED 14:11
DX: F41.1 Generalized anxiety disorder (principal); R00.2 Palpitations; H54.7 Unspecified visual loss; I48.91 Unspecified atrial fibrillation; E78.00 Pure hypercholesterolemia, unspecified; I10 Essential (primary) hypertension; K21.9 Gastro-esophageal reflux disease without esophagitis; E20.9 Hypoparathyroidism, unspecified; Z88.1 Allergy status to other antibiotic agents; Z88.8 Allergy status to other drugs, medicaments and biological substances; Z88.2 Allergy status to sulfonamides; Z79.899 Other long term (current) drug therapy
CPT/HCPCS: 93005; 93010; 99284; 99285-25

== ENCOUNTER 2018-04-01 18:43 | Emergency (ER) | payer MEDICARE ==
[2018-04-01] MEDS ORDERED: Metoprolol Tartrate 25 MG Tab PO ONE (19:24)
--- NOTE | 2018-04-01 19:30 | EDM.PDOC ---
ED HPI GENERAL MEDICAL PROBLEM - General Chief Complaint: Respiratory Problem Stated Complaint: A-FIB?/HEAVY CHEST & SOB Time Seen by Provider: 04/01/18 19:15 Source of Information: Reports: Patient, Old Records, RN History Limitations: Reports: No Limitations - History of Present Illness INITIAL COMMENTS - FREE TEXT/NARRATIVE: 73 yo female with known Afib presents with palpitations and mild chest tightness for most of the day. Did not consult her doctor. Feels a little SOB. Yesterday was advised to reduce her metoprolol succinate from 100 mg qd to 50 mg qd. She also is on diltiazem and digoxin for rate control. Does not know if she is generally in NSR or Afib, was in NSR in the fall of when last here with a rate of 60. Onset: Today Onset Date: 04/01/18 Duration: Hour(s):, Constant Location: Reports: Chest Quality: Reports: Other (mild tightness) Severity: Mild Improves with: Reports: Rest Worsens with: Reports: Movement Context: Reports: Other (known hx of afib) Associated Symptoms: Reports: Chest Pain (mild tightness), Shortness of Breath. 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 (see below) (none) denies pain Pain Score (Numeric/FACES): 0 - Related Data Allergies Allergy/AdvReac Type Severity Reaction Status Date / Time amitriptyline Allergy Insomnia Verified 04/01/18 19:38 ampicillin Allergy Itching Verified 04/01/18 19:38 buspirone [From BuSpar] Allergy Other Verified 04/01/18 19:38 cephalexin Allergy Rash Verified 04/01/18 19:38 doxycycline Allergy Itching Verified 04/01/18 19:38 duloxetine [From Cymbalta] Allergy Cannot Verified 04/01/18 19:38 Remember erythromycin base Allergy Itching Verified 04/01/18 19:38 escitalopram [From Lexapro] Allergy Cannot Verified 04/01/18 19:38 Remember hydromorphone [From Dilaudid] Allergy Pain Verified 04/01/18 19:38 Iodinated Contrast- Oral and Allergy Rash Verified 04/01/18 19:38 IV Dye [Iodinated Contrast Media - Oral and] metronidazole Allergy Cannot Verified 04/01/18 19:38 Remember nortriptyline [From Pamelor] Allergy Insomnia Verified 04/01/18 19:38 paroxetine [From Paxil] Allergy Headache Verified 04/01/18 19:38 Penicillins Allergy Itching Verified 04/01/18 19:38 spironolactone Allergy Cannot Verified 04/01/18 19:38 Remember Sulfa (Sulfonamide Allergy Itching Verified 04/01/18 19:38 Antibiotics) vancomycin Allergy Rash Verified 04/01/18 19:38 levofloxacin [From Levaquin] AdvReac Nausea Verified 04/01/18 19:38 Home Meds: Home Meds Cholecalciferol (Vitamin D3) [Vitamin D3] 5,000 unit PO BEDTIME 10/07/16 [ History] Levothyroxine 137 mcg PO ACBREAKFAST 10/07/16 [History] Liothyronine [Cytomel] 15 mcg PO DAILY 10/07/16 [History] Magnesium 750 mg PO BEDTIME 10/07/16 [History] traZODone 100 mg PO BEDTIME 11/18/16 [History] Furosemide [Lasix] 20 mg PO DAILY #30 tablet 11/22/16 [Rx] Potassium Chloride [Klor-Con M20] 20 meq PO BID #60 tab.er 11/22/16 [Rx] *Bone Builder With Magnesium And Viatmin D6 6 tab PO BEDTIME 12/24/16 [History] Diltiazem [Cardizem CD] 180 mg PO BID 12/24/16 [History] Metoprolol Succinate 100 mg PO BID 12/24/16 [History] Rivaroxaban [Xarelto] 20 mg PO DAILY 12/24/16 [History] Digoxin 1 tab PO DAILY 07/27/17 [History] cycloSPORINE [Restasis] 1 drop EYEBOTH BID 07/27/17 [History] Past Medical History HEENT History: Reports: Impaired Vision Cardiovascular History: Reports: Afib, High Cholesterol, Hypertension Gastrointestinal History: Reports: GERD Genitourinary History: Reports: Other (See Below) Other Genitourinary History: 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 History: Reports: Musculoskeletal History: Reports: Fracture Other Musculoskeletal History: Collar bone fx Psychiatric History: Reports: Anxiety Endocrine/Metabolic History: Reports: Hypoparathyroidism Other Endocrine/Metabolic History: pseudo Hematologic History: Reports: Anemia, B12 Deficiency, Iron Deficiency Immunologic History: Reports: Other (See Below) Other Immunologic History: hepatitis Dermatologic History: Reports: Other (See Below) Other Dermatologic History: breast yeast - Infectious Disease History Infectious Disease History: Reports: Chicken Pox, Measles, Mumps Other Infectious Disease History: hepatitis - Past Surgical History HEENT Surgical History: Reports: Naso-Sinus Surgery, Tonsillectomy Female Surgical History: Reports: Breast Biopsy, Hysterectomy Musculoskeletal Surgical History: Reports: Knee Replacement Social & Family History - Caffeine Use Caffeine Use: Reports: Coffee ED ROS GENERAL - Review of Systems Review Of Systems: See Below Constitutional: Reports: No Symptoms HEENT: Reports: No Symptoms Respiratory: Reports: Shortness of Breath. Denies: Wheezing, Pleuritic Chest Pain, Cough, Sputum, Hemoptysis Cardiovascular: Reports: Palpitations GI/Abdominal: Reports: No Symptoms : Reports: No Symptoms Musculoskeletal: Reports: No Symptoms Skin: Reports: No Symptoms Neurological: Reports: No Symptoms Psychiatric: Reports: Anxiety ED EXAM, GENERAL - Physical Exam Exam: See Below Exam Limited By: No Limitations General Appearance: Alert, WD/WN, No Apparent Distress Eye Exam: Bilateral Eye: Normal Inspection Ears: Normal External Exam, Normal Canal, Hearing Grossly Normal Ear Exam: Bilateral Ear: Auricle Normal, Canal Normal Nose: Normal Inspection, Normal Mucosa, No Blood Throat/Mouth: Normal Inspection, Normal Lips, Normal Oropharynx, Normal Voice, No Airway Compromise Head: Atraumatic, Normocephalic Neck: Normal Inspection, Supple, Non-Tender Respiratory/Chest: No Respiratory Distress, Lungs Clear, Normal Breath Sounds, No Accessory Muscle Use Cardiovascular: Tachycardia (mildly tachy), Irregularly Irregular GI/Abdominal: Normal Bowel Sounds, Soft, Non-Tender, No Distention Back Exam: Normal Inspection. No: CVA Tenderness (R), CVA Tenderness (L) Extremities: Normal Inspection, Normal Range of Motion, Non-Tender, No Pedal Edema Neurological: Alert, Oriented, CN II-XII Intact, Normal Cognition, No Motor/ Sensory Deficits Psychiatric: Normal Affect, Normal Mood Skin Exam: Warm, Dry, Intact, Normal Color, No Rash Course - Vital Signs Text/Narrative:: HR 80's and 90's after metoprolol tartrate 25 mg po Last Recorded V/S: Last Vital Signs Temp 36.6 C 04/01/18 19:25 Pulse 89 04/01/18 19:39 Resp 15 04/01/18 19:39 BP 157/79 H 04/01/18 19:39 Pulse Ox 95 04/01/18 19:39 - Orders/Labs/Meds Orders: Active Orders 24 hr Category Date Time Status Cardiac Monitoring [RC] .As Directed Care 04/01/18 19:13 Active Labs: Laboratory Tests 04/01/18 Range/Units 19:24 Troponin I < 0.017 (0.000-0.056) ng/mL Meds: Medications Discontinued Medications Generic Name Dose Route Start Last Admin Trade Name Freq PRN Reason Stop Dose Admin Metoprolol Tartrate 25 mg 04/01/18 19:24 04/01/18 19:28 Lopressor PO 04/01/18 19:25 25 mg ONETIME ONE Administration Departure - Departure Time of Disposition: 20:04 Disposition: Home, Self-Care 01 Condition: Good Clinical Impression: Atrial fibrillation with RVR - Discharge Information Referrals: Rashida Herzog PA [Primary Care Provider] - Forms: ED Department Discharge - My Orders Last 24 Hours: My Active Orders 04/01/18 19:13 Cardiac Monitoring [RC] .As Directed - Assessment/Plan Last 24 Hours: My Active Orders 04/01/18 19:13 Cardiac Monitoring [RC] .As Directed
[2018-04-01 20:28] VITALS: BP 130/88
== END 2018-04-01 20:20 | disposition home or self-care (01) ==
LOC: JP.ED 18:43
DX: I48.91 Unspecified atrial fibrillation (principal); I10 Essential (primary) hypertension; Z88.8 Allergy status to other drugs, medicaments and biological substances; Z88.2 Allergy status to sulfonamides; Z88.5 Allergy status to narcotic agent; Z88.1 Allergy status to other antibiotic agents; Z79.899 Other long term (current) drug therapy
CPT/HCPCS: 36415; 84484; 99284; A9270

== ENCOUNTER 2018-04-02 14:18 | Emergency (ER) | payer MEDICARE ==
--- NOTE | 2018-04-02 14:57 | EDM.PDOC ---
ED HPI GENERAL MEDICAL PROBLEM - General Chief Complaint: Cardiovascular Problem Stated Complaint: A FIB, SOB Time Seen by Provider: 04/02/18 14:53 Source of Information: Reports: Patient History Limitations: Reports: No Limitations - History of Present Illness INITIAL COMMENTS - FREE TEXT/NARRATIVE: pt arrived being very uncomfortable with the atrial fib. This may have started about 1 week ago. She has been uncomfortable for the past 2 days. Onset: Other (pt may have mark in trial fib for several days. ) Duration: Day(s): Location: Reports: Chest Associated Symptoms: Reports: Other (t believes she is in atrial fib. ) - Related Data Allergies Allergy/AdvReac Type Severity Reaction Status Date / Time amitriptyline Allergy Insomnia Verified 04/03/18 16:12 ampicillin Allergy Itching Verified 04/03/18 16:12 buspirone [From BuSpar] Allergy Other Verified 04/03/18 16:12 cephalexin Allergy Rash Verified 04/03/18 16:12 doxycycline Allergy Itching Verified 04/03/18 16:12 duloxetine [From Cymbalta] Allergy Cannot Verified 04/03/18 16:12 Remember erythromycin base Allergy Itching Verified 04/03/18 16:12 escitalopram [From Lexapro] Allergy Cannot Verified 04/03/18 16:12 Remember hydromorphone [From Dilaudid] Allergy Pain Verified 04/03/18 16:12 Iodinated Contrast- Oral and Allergy Rash Verified 04/03/18 16:12 IV Dye [Iodinated Contrast Media - Oral and] metronidazole Allergy Cannot Verified 04/03/18 16:12 Remember nortriptyline [From Pamelor] Allergy Insomnia Verified 04/03/18 16:12 paroxetine [From Paxil] Allergy Headache Verified 04/03/18 16:12 Penicillins Allergy Itching Verified 04/03/18 16:12 spironolactone Allergy Cannot Verified 04/03/18 16:12 Remember Sulfa (Sulfonamide Allergy Itching Verified 04/03/18 16:12 Antibiotics) vancomycin Allergy Rash Verified 04/03/18 16:12 levofloxacin [From Levaquin] AdvReac Nausea Verified 04/03/18 16:12 Home Meds: Home Meds Cholecalciferol (Vitamin D3) [Vitamin D3] 5,000 unit PO BEDTIME 10/07/16 [ History] Levothyroxine 137 mcg PO ACBREAKFAST 10/07/16 [History] Liothyronine [Cytomel] 15 mcg PO DAILY 10/07/16 [History] Magnesium 750 mg PO BEDTIME 10/07/16 [History] traZODone 100 mg PO BEDTIME 11/18/16 [History] Potassium Chloride [Klor-Con M20] 20 meq PO BID #60 tab.er 11/22/16 [Rx] *Bone Builder With Magnesium And Viatmin D6 6 tab PO BEDTIME 12/24/16 [History] Diltiazem [Cardizem CD] 180 mg PO BID 12/24/16 [History] Metoprolol Succinate 50 mg PO DAILY 12/24/16 [History] Rivaroxaban [Xarelto] 20 mg PO DAILY 12/24/16 [History] Digoxin 125 mcg PO DAILY 07/27/17 [History] Furosemide [Lasix] 40 mg PO DAILY 04/01/18 [History] Past Medical History HEENT History: Reports: Impaired Vision Cardiovascular History: Reports: Afib, High Cholesterol, Hypertension Gastrointestinal History: Reports: GERD Genitourinary History: Reports: Other (See Below) Other Genitourinary History: was on an antibiotic intermediate 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: Musculoskeletal History: Reports: Fracture Other Musculoskeletal History: Collar bone fx Psychiatric History: Reports: Anxiety Endocrine/Metabolic History: Reports: Hypoparathyroidism Other Endocrine/Metabolic History: pseudo Hematologic History: Reports: Anemia, B12 Deficiency, Iron Deficiency Immunologic History: Reports: Other (See Below) Other Immunologic History: hepatitis Dermatologic History: Reports: Other (See Below) Other Dermatologic History: breast yeast - Infectious Disease History Infectious Disease History: Reports: Chicken Pox, Measles, Mumps Other Infectious Disease History: hepatitis - Past Surgical History HEENT Surgical History: Reports: Naso-Sinus Surgery, Tonsillectomy Female Surgical History: Reports: Breast Biopsy, Hysterectomy Musculoskeletal Surgical History: Reports: Knee Replacement Social & Family History - Tobacco Use Smoking Status *Q: Never Smoker - Caffeine Use Caffeine Use: Reports: Coffee - Recreational Drug Use Recreational Drug Use: No ED ROS GENERAL - Review of Systems Review Of Systems: See Below Constitutional: Reports: No Symptoms HEENT: Reports: No Symptoms Respiratory: Reports: Shortness of Breath Cardiovascular: Reports: Palpitations, Other (pt belives she is back in trial fib. ) Endocrine: Reports: No Symptoms GI/Abdominal: Reports: No Symptoms : Reports: No Symptoms Musculoskeletal: Reports: No Symptoms Skin: Reports: No Symptoms Neurological: Reports: No Symptoms Psychiatric: Reports: No Symptoms ED EXAM, GENERAL - Physical Exam Exam: See Below Free Text/Narrative:: pt arrived with sob and slight tightness in her chest. She has been sob. Exam Limited By: No Limitations General Appearance: Alert, Mild Distress Ears: Normal TMs Nose: Normal Inspection Throat/Mouth: Normal Inspection Head: Atraumatic Neck: Normal Inspection Respiratory/Chest: No Respiratory Distress Cardiovascular: Irregularly Irregular, Other (pt is in atrial fib. ) GI/Abdominal: Soft, Non-Tender (Female) Exam: Deferred Rectal (Female) Exam: Deferred Back Exam: Normal Inspection Extremities: Normal Inspection Neurological: Alert, Oriented, Normal Cognition Psychiatric: Normal Affect Course - Vital Signs Last Recorded V/S: Last Vital Signs Temp 35.9 C 04/02/18 14:26 Pulse 59 L 04/02/18 18:15 Resp 14 04/02/18 18:15 BP 144/93 H 04/02/18 18:15 Pulse Ox 94 L 04/02/18 18:15 - Orders/Labs/Meds Labs: Laboratory Tests 04/02/18 04/02/18 04/02/18 Range/Units 14:27 14:30 14:30 WBC 7.2 (4.5-11.0) K/uL RBC 5.06 (3.30-5.50) M/uL Hgb 13.3 (12.0-15.0) g/dL Hct 40.5 (36.0-48.0) % MCV 80 (80-98) fL MCH 26 L (27-31) pg MCHC 33 (32-36) % Plt Count 324 (150-400) K/uL Neut % (Auto) 65 (36-66) % Lymph % (Auto) 26 (24-44) % [place] % (Auto) 8 H (2-6) % Eos % (Auto) 1 L (2-4) % Baso % (Auto) 1 (0-1) % Sodium 137 L (140-148) mmol/L Potassium 4.0 (3.6-5.2) mmol/L Chloride 102 (100-108) mmol/L Carbon Dioxide 23 (21-32) mmol/L Anion Gap 16.0 H (5.0-14.0) mmol/L BUN 14 (7-18) mg/dL Creatinine 1.0 (0.6-1.0) mg/dL Est Cr Clr Drug Dosing 42.86 mL/min Estimated GFR (MDRD) 54 L (>60) Glucose 162 H (74-106) mg/dL Calcium 8.1 L (8.5-10.1) mg/dL Magnesium (1.8-2.4) mg/dL Total Bilirubin 0.4 (0.2-1.0) mg/dL AST 28 (15-37) U/L ALT 28 (12-78) U/L Alkaline Phosphatase 111 (46-116) U/L Troponin I (0.000-0.056) ng/mL Total Protein 7.5 (6.4-8.2) g/dL Albumin 3.4 (3.4-5.0) g/dL Globulin 4.1 H (2.3-3.5) g/dL Albumin/Globulin Ratio 0.8 L (1.2-2.2) TSH, Ultra Sensitive (0.358-3.740) uIU/mL Urine Color Yellow Urine Appearance Clear Urine pH 7.0 (4.5-8.0) Ur Specific [place] 1.010 (1.008-1.030) Urine Protein Negative (NEGATIVE) mg/dL Urine Glucose (UA) Normal (NEGATIVE) mg/dL Urine Ketones Negative (NEGATIVE) mg/dL Urine Occult Blood Negative (NEGATIVE) Urine Nitrite Negative (NEGATIVE) Urine Bilirubin Negative (NEGATIVE) Urine Urobilinogen Normal (NORMAL) mg/dL Ur Leukocyte Esterase Negative (NEGATIVE) Urine RBC 0-5 (0-5) Urine WBC Not seen (0-5) Ur Epithelial Cells Rare Amorphous Sediment Not seen Urine Bacteria Few Urine Mucus Not seen Digoxin (0.90-2.00) ng/mL 04/02/18 04/02/18 04/02/18 Range/Units 14:30 14:30 14:30 WBC (4.5-11.0) K/uL RBC (3.30-5.50) M/uL Hgb (12.0-15.0) g/dL Hct (36.0-48.0) % MCV (80-98) fL MCH (27-31) pg MCHC (32-36) % Plt Count (150-400) K/uL Neut % (Auto) (36-66) % Lymph % (Auto) (24-44) % [place] % (Auto) (2-6) % Eos % (Auto) (2-4) % Baso % (Auto) (0-1) % Sodium (140-148) mmol/L Potassium (3.6-5.2) mmol/L Chloride (100-108) mmol/L Carbon Dioxide (21-32) mmol/L Anion Gap (5.0-14.0) mmol/L BUN (7-18) mg/dL Creatinine (0.6-1.0) mg/dL Est Cr Clr Drug Dosing mL/min Estimated GFR (MDRD) (>60) Glucose (74-106) mg/dL Calcium (8.5-10.1) mg/dL Magnesium 2.2 (1.8-2.4) mg/dL Total Bilirubin (0.2-1.0) mg/dL AST (15-37) U/L ALT (12-78) U/L Alkaline Phosphatase (46-116) U/L Troponin I (0.000-0.056) ng/mL Total Protein (6.4-8.2) g/dL Albumin (3.4-5.0) g/dL Globulin (2.3-3.5) g/dL Albumin/Globulin Ratio (1.2-2.2) TSH, Ultra Sensitive 1.197 (0.358-3.740) uIU/mL Urine Color Urine Appearance Urine pH (4.5-8.0) Ur Specific [place] (1.008-1.030) Urine Protein (NEGATIVE) mg/dL Urine Glucose (UA) (NEGATIVE) mg/dL Urine Ketones (NEGATIVE) mg/dL Urine Occult Blood (NEGATIVE) Urine Nitrite (NEGATIVE) Urine Bilirubin (NEGATIVE) Urine Urobilinogen (NORMAL) mg/dL Ur Leukocyte Esterase (NEGATIVE) Urine RBC (0-5) Urine WBC (0-5) Ur Epithelial Cells Amorphous Sediment Urine Bacteria Urine Mucus Digoxin 0.66 L (0.90-2.00) ng/mL 04/02/18 Range/Units 14:30 WBC (4.5-11.0) K/uL RBC (3.30-5.50) M/uL Hgb (12.0-15.0) g/dL Hct (36.0-48.0) % MCV (80-98) fL MCH (27-31) pg MCHC (32-36) % Plt Count (150-400) K/uL Neut % (Auto) (36-66) % Lymph % (Auto) (24-44) % [place] % (Auto) (2-6) % Eos % (Auto) (2-4) % Baso % (Auto) (0-1) % Sodium (140-148) mmol/L Potassium (3.6-5.2) mmol/L Chloride (100-108) mmol/L Carbon Dioxide (21-32) mmol/L Anion Gap (5.0-14.0) mmol/L BUN (7-18) mg/dL Creatinine (0.6-1.0) mg/dL Est Cr Clr Drug Dosing mL/min Estimated GFR (MDRD) (>60) Glucose (74-106) mg/dL Calcium (8.5-10.1) mg/dL Magnesium (1.8-2.4) mg/dL Total Bilirubin (0.2-1.0) mg/dL AST (15-37) U/L ALT (12-78) U/L Alkaline Phosphatase (46-116) U/L Troponin I < 0.017 (0.000-0.056) ng/mL Total Protein (6.4-8.2) g/dL Albumin (3.4-5.0) g/dL Globulin (2.3-3.5) g/dL Albumin/Globulin Ratio (1.2-2.2) TSH, Ultra Sensitive (0.358-3.740) uIU/mL Urine Color Urine Appearance Urine pH (4.5-8.0) Ur Specific [place] (1.008-1.030) Urine Protein (NEGATIVE) mg/dL Urine Glucose (UA) (NEGATIVE) mg/dL Urine Ketones (NEGATIVE) mg/dL Urine Occult Blood (NEGATIVE) Urine Nitrite (NEGATIVE) Urine Bilirubin (NEGATIVE) Urine Urobilinogen (NORMAL) mg/dL Ur Leukocyte Esterase (NEGATIVE) Urine RBC (0-5) Urine WBC (0-5) Ur Epithelial Cells Amorphous Sediment Urine Bacteria Urine Mucus Digoxin (0.90-2.00) ng/mL Meds: Medications Discontinued Medications Generic Name Dose Route Start Last Admin Trade Name Bushra PRN Reason Stop Dose Admin Propofol Confirm 04/02/18 17:42 Diprivan 20 Ml Administered 04/02/18 17:43 Dose 200 mg .ROUTE .STK-MED ONE - Re-Assessments/Exams Free Text/Narrative Re-Assessment/Exam: 04/02/18 17:55 pt had good lab work. She remained in atrial fib with a rate varying from 100 to 130. She was sedated and cardioverted without difficulty Pt tolerated the procedur well. 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 See if he wishes to consider ablation.
[2018-04-02] MEDS ORDERED: Propofol 200 MG/20 ML SDV ONE (17:42)
--- NOTE | 2018-04-02 17:47 | PCM.PRNOTE ---
- Free Text/Narrative Note: Date of service: 04/02/2018 Proposed procedure: synchronized cardioversion Preprocedure diagnosis: paroxysmal atrial fibrillation with rapid ventricular response Post procedure diagnosis: paroxysmal atrial fibrillation with rapid ventricular response Indication for procedure: beny was evaluated today for management atrial fibrillation with symptoms and rapid ventricular response. Synchronized cardioversion was recommended as a primary treatment given failure of medical therapy, current anticoagulation and severity of symptoms. Description of the procedure: Beny is currently located in [facility] in the emergency room. We have reviewed the potential risks of electrical cardioversion including but not limited to: Superficial skin mckeon, ineffective treatment, other arrhythmias, reaction to anesthesia medications or potentially asystole. The benefits of the procedure have also been reviewed. At this time the patient wishes to proceed with electrical cardioversion. All necessary pre- procedure information and paperwork has been provided and completed, respectively. The patient was connected to cardioversion pads and monitoring equipment per protocol. Prior to the procedure, a timeout was held with nursing and anesthesia present to confirm the right patient and right procedure. Once appropriate anesthesia was applied the machine was charged to 200 Joules and a synchronized electrical shock was applied. The patient was successfully converted to normal sinus rhythm based on telemetry monitoring. They will remain in their current location until anesthesia has dissipated and they is more awake and alert. They will then be discharged to home once medically stable. Anticoagulation should be continued for at least one month post cardioversion. There were no immediate complications noted from the procedure. Post procedure EKG is pending at the time of dictation. Lee Leos M.D.
[2018-04-02 18:45] VITALS: BP 144/93
--- NOTE | 2018-04-03 00:34 | ANES ---
DATE OF SERVICE: 04/02/2018 PROCEDURE: Anesthesia. INDICATIONS: A 73-year-old lady in the emergency room in atrial fibrillation with shortness of breath. I was asked by Dr. Leos to provide sedation for a cardioversion. Procedure was explained to the patient in detail. All questions were answered. A consent was signed. She last ate at approximately noon. DESCRIPTION OF PROCEDURE: She was hooked up to appropriate monitors. I used a bag-valve mask with 100% oxygen to get her SaO2 level up to 99. I then gave her 80 mg of propofol intravenously, and when appropriate level of sedation was reached, she was cardioverted x1 with 200 joules, and within 10 minutes was spontaneously breathing and responding to discomfort. Tolerated the procedure well. Zachary Li CRNA /[id number]
--- NOTE | 2018-04-05 09:17 | CR ---
Chest 1V Frontal FINDINGS: The heart and vascular structures are normal in appearance. No infiltrates or effusions are demonstrated. The skeletal structures are unremarkable. IMPRESSION: Negative exam.
== END 2018-04-02 18:45 | disposition home or self-care (01) ==
LOC: JP.ED 14:18
DX: I48.91 Unspecified atrial fibrillation (principal); I10 Essential (primary) hypertension; E78.00 Pure hypercholesterolemia, unspecified; K21.9 Gastro-esophageal reflux disease without esophagitis; F41.9 Anxiety disorder, unspecified; E20.9 Hypoparathyroidism, unspecified; D64.9 Anemia, unspecified; Z79.899 Other long term (current) drug therapy; Z88.2 Allergy status to sulfonamides; Z88.1 Allergy status to other antibiotic agents; Z88.6 Allergy status to analgesic agent
CPT/HCPCS: 36415; 71045; 80053; 80162; 81001; 83735; 84443; 84484; 85025; 92960; 93005; 99285; J2704; 93010

== ENCOUNTER 2018-04-03 15:42 | Emergency (ER) | payer MEDICARE ==
[2018-04-03] MEDS ORDERED: Nitroglycerin 0.4 MG Tab.SL SL PRN (16:17)
[2018-04-03] MEDS ORDERED: Aspirin 81 MG Tab.Chew PO ONE (16:17)
[2018-04-03] MEDS ORDERED: Morphine 2 MG/ML Syringe IVPUSH PRN (16:17)
[2018-04-03] MEDS ORDERED: Ketorolac 60 MG/2 ML SDV IM ONE (16:20)
--- NOTE | 2018-04-03 16:22 | EDM.PDOC ---
ED HPI GENERAL MEDICAL PROBLEM - General Chief Complaint: Cardiovascular Problem Stated Complaint: HARD TO BREATH Time Seen by Provider: 04/03/18 16:08 Source of Information: Reports: Patient, Family, Old Records, RN Notes Reviewed History Limitations: Reports: No Limitations - History of Present Illness INITIAL COMMENTS - FREE TEXT/NARRATIVE: 73-year-old female presents emergency department day complaint of chest pressure , she states it started at 11:00 today diaphoresis and shortness of breath occurs with the chest pressure rates it 6 out of 10 no nausea or vomiting. She was in the emergency department yesterday for atrial fibrillation with rapid ventricular response was electric cardioverted and discharged home. She states she did well after the cardioversion she has been cardioverted 3 times and is on Xarelto for anticoagulation Chest Pain Score (Numeric/FACES): 7 - Related Data Allergies Allergy/AdvReac Type Severity Reaction Status Date / Time amitriptyline Allergy Insomnia Verified 04/03/18 16:12 ampicillin Allergy Itching Verified 04/03/18 16:12 buspirone [From BuSpar] Allergy Other Verified 04/03/18 16:12 cephalexin Allergy Rash Verified 04/03/18 16:12 doxycycline Allergy Itching Verified 04/03/18 16:12 duloxetine [From Cymbalta] Allergy Cannot Verified 04/03/18 16:12 Remember erythromycin base Allergy Itching Verified 04/03/18 16:12 escitalopram [From Lexapro] Allergy Cannot Verified 04/03/18 16:12 Remember hydromorphone [From Dilaudid] Allergy Pain Verified 04/03/18 16:12 Iodinated Contrast- Oral and Allergy Rash Verified 04/03/18 16:12 IV Dye [Iodinated Contrast Media - Oral and] metronidazole Allergy Cannot Verified 04/03/18 16:12 Remember nortriptyline [From Pamelor] Allergy Insomnia Verified 04/03/18 16:12 paroxetine [From Paxil] Allergy Headache Verified 04/03/18 16:12 Penicillins Allergy Itching Verified 04/03/18 16:12 spironolactone Allergy Cannot Verified 04/03/18 16:12 Remember Sulfa (Sulfonamide Allergy Itching Verified 04/03/18 16:12 Antibiotics) vancomycin Allergy Rash Verified 04/03/18 16:12 levofloxacin [From Levaquin] AdvReac Nausea Verified 04/03/18 16:12 Home Meds: Home Meds Cholecalciferol (Vitamin D3) [Vitamin D3] 5,000 unit PO BEDTIME 10/07/16 [ History] Levothyroxine 137 mcg PO ACBREAKFAST 10/07/16 [History] Liothyronine [Cytomel] 15 mcg PO DAILY 10/07/16 [History] Magnesium 750 mg PO BEDTIME 10/07/16 [History] traZODone 100 mg PO BEDTIME 11/18/16 [History] Potassium Chloride [Klor-Con M20] 20 meq PO BID #60 tab.er 11/22/16 [Rx] *Bone Builder With Magnesium And Viatmin D6 6 tab PO BEDTIME 12/24/16 [History] Diltiazem [Cardizem CD] 180 mg PO BID 12/24/16 [History] Metoprolol Succinate 50 mg PO DAILY 12/24/16 [History] Rivaroxaban [Xarelto] 20 mg PO DAILY 12/24/16 [History] Digoxin 125 mcg PO DAILY 07/27/17 [History] Furosemide [Lasix] 40 mg PO DAILY 04/01/18 [History] Past Medical History HEENT History: Reports: Impaired Vision Cardiovascular History: Reports: Afib, High Cholesterol, Hypertension Gastrointestinal History: Reports: GERD Genitourinary History: Reports: Other (See Below) Other Genitourinary History: 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: Musculoskeletal History: Reports: Fracture Other Musculoskeletal History: Collar bone fx Psychiatric History: Reports: Anxiety Endocrine/Metabolic History: Reports: Hypoparathyroidism Other Endocrine/Metabolic History: pseudo Hematologic History: Reports: Anemia, B12 Deficiency, Iron Deficiency Immunologic History: Reports: Other (See Below) Other Immunologic History: hepatitis Dermatologic History: Reports: Other (See Below) Other Dermatologic History: breast yeast - Infectious Disease History Infectious Disease History: Reports: C-Difficile, Hepatitis A, Measles, Mumps Other Infectious Disease History: hepatitis - Past Surgical History HEENT Surgical History: Reports: Naso-Sinus Surgery, Tonsillectomy Female Surgical History: Reports: Breast Biopsy, Hysterectomy Musculoskeletal Surgical History: Reports: Knee Replacement Social & Family History - Caffeine Use Caffeine Use: Reports: Coffee ED ROS GENERAL - Review of Systems Review Of Systems: See Below Constitutional: Reports: Diaphoresis HEENT: Reports: No Symptoms Respiratory: Reports: Shortness of Breath Cardiovascular: Reports: Chest Pain. Denies: Palpitations GI/Abdominal: Reports: No Symptoms : Reports: No Symptoms Musculoskeletal: Reports: No Symptoms Skin: Reports: No Symptoms ED EXAM, GENERAL - Physical Exam Exam: See Below Exam Limited By: No Limitations General Appearance: Alert, WD/WN, No Apparent Distress Respiratory/Chest: No Respiratory Distress, Lungs Clear, Normal Breath Sounds, No Accessory Muscle Use, Other (Chest is tender over pad placement areas) Cardiovascular: Regular Rate, Rhythm, No Murmur GI/Abdominal: Soft, Non-Tender Course - Vital Signs Last Recorded V/S: Last Vital Signs Temp 97.9 F 04/03/18 16:07 Pulse 64 04/03/18 16:07 Resp 18 04/03/18 16:07 BP 126/86 04/03/18 16:07 Pulse Ox 96 04/03/18 16:07 - Orders/Labs/Meds Orders: Active Orders 24 hr Category Date Time Status Cardiac Monitoring [RC] .As Directed Care 04/03/18 16:17 Active EKG Documentation Completion [RC] ASDIRECTED Care 04/03/18 16:18 Active Peripheral IV Care [RC] . DIRECTED Care 04/03/18 16:42 Active Morphine Med 04/03/18 16:17 Active 2 mg IVPUSH Q10M PRN Nitroglycerin [Nitrostat] Med 04/03/18 16:17 Active 0.4 mg SL Q5M PRN Sodium Chloride 0.9% [Saline Flush] Med 04/03/18 16:42 Active 10 ml FLUSH ASDIRECTED PRN Peripheral IV Insertion Adult [OM.PC] Urgent Oth 04/03/18 16:42 Ordered EKG 12 Lead [EK] Stat Ther 04/03/18 16:18 Ordered Medication Orders Morphine Sulfate (Morphine) 2 mg IVPUSH Q10M PRN PRN Reason: Chest Pain Stop: 04/04/18 16:17 Nitroglycerin (Nitrostat) 0.4 mg SL Q5M PRN PRN Reason: Chest Pain Stop: 04/04/18 16:17 Sodium Chloride (Saline Flush) 10 ml FLUSH ASDIRECTED PRN PRN Reason: Keep Vein Open Labs: Laboratory Tests 04/03/18 04/03/18 Range/Units 16:33 16:33 WBC 8.1 (4.5-11.0) K/uL RBC 4.60 (3.30-5.50) M/uL Hgb 11.8 L (12.0-15.0) g/dL Hct 37.0 (36.0-48.0) % MCV 80 (80-98) fL MCH 26 L (27-31) pg MCHC 32 (32-36) % Plt Count 290 (150-400) K/uL Neut % (Auto) 67 H (36-66) % Lymph % (Auto) 22 L (24-44) % Arroyo % (Auto) 9 H (2-6) % Eos % (Auto) 2 (2-4) % Baso % (Auto) 1 (0-1) % Sodium 140 (140-148) mmol/L Potassium 3.5 L (3.6-5.2) mmol/L Chloride 103 (100-108) mmol/L Carbon Dioxide 27 (21-32) mmol/L Anion Gap 13.5 (5.0-14.0) mmol/L BUN 13 (7-18) mg/dL Creatinine 0.9 (0.6-1.0) mg/dL Est Cr Clr Drug Dosing 56.44 mL/min Estimated GFR (MDRD) > 60 (>60) Glucose 105 (74-106) mg/dL Calcium 8.1 L (8.5-10.1) mg/dL Total Bilirubin 0.3 (0.2-1.0) mg/dL AST 16 (15-37) U/L ALT 25 (12-78) U/L Alkaline Phosphatase 107 (46-116) U/L Troponin I < 0.017 (0.000-0.056) ng/mL Total Protein 7.3 (6.4-8.2) g/dL Albumin 3.4 (3.4-5.0) g/dL Globulin 3.9 H (2.3-3.5) g/dL Albumin/Globulin Ratio 0.9 L (1.2-2.2) Meds: Medications Generic Name Dose Route Start Last Admin Trade Name Freq PRN Reason Stop Dose Admin Morphine Sulfate 2 mg 04/03/18 16:17 Morphine IVPUSH 04/04/18 16:17 Q10M PRN Chest Pain Nitroglycerin 0.4 mg 04/03/18 16:17 Nitrostat SL 04/04/18 16:17 Q5M PRN Chest Pain Sodium Chloride 10 ml 04/03/18 16:42 Saline Flush FLUSH ASDIRECTED PRN Keep Vein Open Discontinued Medications Generic Name Dose Route Start Last Admin Trade Name Freq PRN Reason Stop Dose Admin Aspirin 324 mg 04/03/18 16:17 04/03/18 16:33 Aspirin PO 04/03/18 16:18 324 mg ONETIME ONE Administration Ketorolac Tromethamine 60 mg 04/03/18 16:20 Toradol IM 04/03/18 16:21 ONETIME ONE Ketorolac Tromethamine 30 mg 04/03/18 16:42 04/03/18 16:45 Toradol IVPUSH 04/03/18 16:43 30 mg ONETIME ONE Administration Departure - Departure Time of Disposition: 17:08 Disposition: Home, Self-Care 01 Condition: Good Clinical Impression: Atypical chest pain Referrals: Rashida Herzog PA [Primary Care Provider] - Forms: ED Department Discharge Additional Instructions: Continue to use ibuprofen or Tylenol as needed for pain, please follow-up with your reimbursement spec for discussion about ablation, call return to the emergency department worsening of symptoms - My Orders Last 24 Hours: My Active Orders 04/03/18 16:17 Cardiac Monitoring [RC] .As Directed Morphine 2 mg IVPUSH Q10M PRN Nitroglycerin [Nitrostat] 0.4 mg SL Q5M PRN 04/03/18 16:18 EKG Documentation Completion [RC] ASDIRECTED EKG 12 Lead [EK] Stat 04/03/18 16:42 Peripheral IV Care [RC] . DIRECTED Sodium Chloride 0.9% [Saline Flush] 10 ml FLUSH ASDIRECTED PRN Peripheral IV Insertion Adult [OM.PC] Urgent - Assessment/Plan Last 24 Hours: My Active Orders 04/03/18 16:17 Cardiac Monitoring [RC] .As Directed Morphine 2 mg IVPUSH Q10M PRN Nitroglycerin [Nitrostat] 0.4 mg SL Q5M PRN 04/03/18 16:18 EKG Documentation Completion [RC] ASDIRECTED EKG 12 Lead [EK] Stat 04/03/18 16:42 Peripheral IV Care [RC] . DIRECTED Sodium Chloride 0.9% [Saline Flush] 10 ml FLUSH ASDIRECTED PRN Peripheral IV Insertion Adult [OM.PC] Urgent Plan: Assessment Acuity = acute Site and laterality = atypical chest pain Etiology = probably related to cardioversion from yesterday Manifestations = none Location of injury = Home Lab values = CBC unremarkable potassium low at 3.5 consistent hypokalemia, troponin negative EKG demonstrates a sinus rhythm with the poor R-wave progression similar to prior EKGs Plan She had good relief from the Toradol provided, plan is to discharge home she is going to follow-up with her reimbursement spec and discuss the possibility for ablation This note was dictated using [employer] voice recognition software please call with any questions on syntax or grammar.
[2018-04-03] MEDS ORDERED: Ketorolac 30 MG/ML SDV IVPUSH ONE (16:42)
[2018-04-03] MEDS ORDERED: Sodium Chloride 0.9% 10 ML Syringe FLUSH PRN (16:42)
[2018-04-03 17:14] VITALS: BP 136/46
== END 2018-04-03 17:26 | disposition home or self-care (01) ==
LOC: JP.ED 15:42
DX: R07.89 Other chest pain (principal); I10 Essential (primary) hypertension; E78.00 Pure hypercholesterolemia, unspecified; I48.91 Unspecified atrial fibrillation; E20.9 Hypoparathyroidism, unspecified; Z79.899 Other long term (current) drug therapy; Z88.6 Allergy status to analgesic agent; Z91.041 Radiographic dye allergy status; Z88.8 Allergy status to other drugs, medicaments and biological substances; Z88.0 Allergy status to penicillin; Z88.1 Allergy status to other antibiotic agents; Z88.2 Allergy status to sulfonamides
CPT/HCPCS: 36415; 80053; 84484; 85025; 93005; 96374; 99284; A9270; J1885

== ENCOUNTER 2018-07-23 21:05 | Emergency (ER) | payer MEDICARE ==
[2018-07-23 22:15] VITALS: BP 148/68
--- NOTE | 2018-07-23 22:34 | EDM.PDOC ---
ED HPI GENERAL MEDICAL PROBLEM - General Chief Complaint: ENT Problem Stated Complaint: ILLNESS Time Seen by Provider: 07/23/18 22:29 Source of Information: Reports: Patient, Family History Limitations: Reports: No Limitations - History of Present Illness INITIAL COMMENTS - FREE TEXT/NARRATIVE: Pt with itching x 1 month. ?mites or bugs in her hair and lashes. Was seen by dermatology on and given samples of Ivermectin cream. Has been applying teatree oil and olive oil combination to arms. Pt with extensive itching and fatigue from this. Is anxious and having trouble sleeping. Unsure of source. No discharge summary available from derm appointment. 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 Pain Score (Numeric/FACES): 1 - Related Data Allergies Allergy/AdvReac Type Severity Reaction Status Date / Time amitriptyline Allergy Insomnia Verified 07/23/18 22:31 ampicillin Allergy Itching Verified 07/23/18 22:31 buspirone [From BuSpar] Allergy Other Verified 07/23/18 22:31 cephalexin Allergy Rash Verified 07/23/18 22:31 doxycycline Allergy Itching Verified 07/23/18 22:31 duloxetine [From Cymbalta] Allergy Cannot Verified 07/23/18 22:31 Remember erythromycin base Allergy Itching Verified 07/23/18 22:31 escitalopram [From Lexapro] Allergy Cannot Verified 07/23/18 22:31 Remember hydromorphone [From Dilaudid] Allergy Pain Verified 07/23/18 22:31 Iodinated Contrast- Oral and Allergy Rash Verified 07/23/18 22:31 IV Dye [Iodinated Contrast Media - Oral and] metronidazole Allergy Cannot Verified 07/23/18 22:31 Remember nortriptyline [From Pamelor] Allergy Insomnia Verified 07/23/18 22:31 paroxetine [From Paxil] Allergy Headache Verified 07/23/18 22:31 Penicillins Allergy Itching Verified 07/23/18 22:31 spironolactone Allergy Cannot Verified 07/23/18 22:31 Remember Sulfa (Sulfonamide Allergy Itching Verified 07/23/18 22:31 Antibiotics) vancomycin Allergy Rash Verified 07/23/18 22:31 levofloxacin [From Levaquin] AdvReac Nausea Verified 07/23/18 22:31 Home Meds: Home Meds Cholecalciferol (Vitamin D3) [Vitamin D3] 5,000 unit PO BEDTIME 10/07/16 [ History] Levothyroxine 137 mcg PO ACBREAKFAST 10/07/16 [History] Liothyronine [Cytomel] 15 mcg PO DAILY 10/07/16 [History] Magnesium 800 mg PO BEDTIME 10/07/16 [History] traZODone 100 mg PO BEDTIME 11/18/16 [History] Diltiazem [Cardizem CD] 180 mg PO BID 12/24/16 [History] Metoprolol Succinate 25 mg PO DAILY 12/24/16 [History] Rivaroxaban [Xarelto] 20 mg PO DAILY 12/24/16 [History] Furosemide [Lasix] 40 mg PO DAILY 04/01/18 [History] Calcium Citrate 4 tab PO DAILY 07/23/18 [History] Potassium Chloride [Klor-Con M20] 10 meq PO BID 07/23/18 [History] Sertraline [Zoloft] 75 mg PO BEDTIME 07/23/18 [History] Tobramycin 0.3% [Tobramycin 0.3% Ophth Soln] 2 drop EYEBOTH QID 07/23/18 [ History] Past Medical History HEENT History: Reports: Impaired Vision Cardiovascular History: Reports: Afib, High Cholesterol, Hypertension Gastrointestinal History: Reports: GERD Genitourinary History: Reports: Other (See Below) Other Genitourinary History: was on an antibiotic [facility] 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 [employer]NER History: Reports: Musculoskeletal History: Reports: Fracture Other Musculoskeletal History: Collar bone fx Psychiatric History: Reports: Anxiety Endocrine/Metabolic History: Reports: Hypoparathyroidism Other Endocrine/Metabolic History: pseudo Hematologic History: Reports: Anemia, B12 Deficiency, Iron Deficiency Immunologic History: Reports: Other (See Below) Other Immunologic History: hepatitis Dermatologic History: Reports: Other (See Below) Other Dermatologic History: breast yeast - Infectious Disease History Infectious Disease History: Reports: C-Difficile, Hepatitis A, Measles, Mumps Other Infectious Disease History: hepatitis - Past Surgical History HEENT Surgical History: Reports: Naso-Sinus Surgery, Tonsillectomy Female Surgical History: Reports: Breast Biopsy, Hysterectomy Musculoskeletal Surgical History: Reports: Knee Replacement Social & Family History - Caffeine Use Caffeine Use: Reports: Coffee ED ROS ENT - Review of Systems Review Of Systems: See Below Constitutional: Reports: No Symptoms HEENT: Reports: Other (?mites in her eyes) Respiratory: Reports: No Symptoms Cardiovascular: Reports: No Symptoms Skin: Reports: Pruritis, Rash (x 1 month) Psychiatric: Reports: Anxiety, Depression ED EXAM, ENT - Physical Exam Exam: See Below Exam Limited By: No Limitations General Appearance: Mild Distress (itching arms) Eye Exam: Bilateral Eye: Other (no obvious foreign body or insect noted to lids , lashes or globe) Ears: Normal External Exam, Normal Canal, Hearing Grossly Normal, Normal TMs Nose: Normal Inspection, Normal Mucousa, No Blood Mouth/Throat: Normal Inspection, Normal Gums, Normal Lips, Normal Oropharynx, Normal Teeth Head: Atraumatic, Normocephalic, Other (with scratch garland to midline forehead) Respiratory/Chest: No Respiratory Distress, Lungs Clear, Normal Breath Sounds, No Accessory Muscle Use, Chest Non-Tender Cardiovascular: Normal Peripheral Pulses, Regular Rate, Rhythm, No Edema, No Gallop, No JVD, No Murmur, No Rub Skin: Rash (with inflamed areas to bilateral antecubital areas. Face with scratch garland to mid forehead region.) Course - Vital Signs Last Recorded V/S: Last Vital Signs Temp 97 F 07/23/18 22:14 Pulse 147 H 07/23/18 22:14 Resp 14 07/23/18 22:14 BP 148/68 H 07/23/18 22:14 Pulse Ox 98 07/23/18 22:14 - Orders/Labs/Meds Meds: Medications Discontinued Medications Generic Name Dose Route Start Last Admin Trade Name Freq PRN Reason Stop Dose Admin Hydroxyzine HCl 25 mg 07/23/18 22:35 Atarax PO 07/23/18 22:36 ONETIME ONE Departure - Departure Time of Disposition: 22:42 Disposition: Home, Self-Care 01 Condition: Fair Clinical Impression: Urticaria - Discharge Information *PRESCRIPTION DRUG MONITORING PROGRAM REVIEWED*: Not Applicable *COPY OF PRESCRIPTION DRUG MONITORING REPORT IN PATIENT JACQUES: Not Applicable Instructions: Eye Foreign Body, [id number], Allergies, Adult, [id number] Referrals: Rashida Herzog PA [Primary Care Provider] - Forms: ED Department Discharge Additional Instructions: Discussed using the cream and shampoo as prescribed by dermatology. Pt may use Benadryl 50mg every 8 hours as needed for itching. To apply only Eucerin or Vaseline to arms. No olive or tea tree oil to be applied. To contact dermatology Thursday if symptoms persist. Discussed that itching can persist long after a mite is killed. Consider getting into the sunlight over the next few days and hydrating well. No new soaps, lotions or detergents. - Problem List & Annotations (1) Urticaria SNOMED Code(s): 532214580 Code(s): L50.9 - URTICARIA, UNSPECIFIED Status: Acute Priority: Low Current Visit: Yes
[2018-07-23] MEDS ORDERED: hydrOXYzine HCl 25 MG Tab PO ONE (22:35)
== END 2018-07-23 23:00 | disposition home or self-care (01) ==
LOC: JP.ED 21:05
DX: L50.9 Urticaria, unspecified (principal); S00.81XA Abrasion of other part of head, initial encounter; Z88.0 Allergy status to penicillin; Z88.8 Allergy status to other drugs, medicaments and biological substances; Z88.2 Allergy status to sulfonamides; Z88.1 Allergy status to other antibiotic agents; Z91.041 Radiographic dye allergy status; I10 Essential (primary) hypertension
CPT/HCPCS: 99283; A9270

== ENCOUNTER 2018-08-02 20:17 | Emergency (ER) | payer MEDICARE ==
[2018-08-02] MEDS ORDERED: Sodium Chloride 0.9% 10 ML Syringe FLUSH PRN (20:57)
--- NOTE | 2018-08-02 21:08 | EDM.PDOC ---
ED HPI GENERAL MEDICAL PROBLEM - General Chief Complaint: Cardiovascular Problem Stated Complaint: A FIB Time Seen by Provider: 08/02/18 20:38 Source of Information: Reports: Patient, Family, Old Records, RN Notes Reviewed History Limitations: Reports: No Limitations - History of Present Illness INITIAL COMMENTS - FREE TEXT/NARRATIVE: 73-year-old female presents to the emergency department today with complaint of atrial fibrillation. She has a known history of atrial fibrillation has been having difficulty with atrial fibrillation for the last month she has been going in and out of the rhythm. She last had a cardioversion back in March of this year. . She states she has been taking her medications regularly her digoxin was stopped back in March. However she is not had a follow-up visit with cardiology. She feels generalized weakness some shortness of breath palpitations no nausea vomiting Chest Pain Score (Numeric/FACES): 6 - Related Data Allergies Allergy/AdvReac Type Severity Reaction Status Date / Time amitriptyline Allergy Insomnia Verified 08/02/18 20:37 ampicillin Allergy Itching Verified 08/02/18 20:37 buspirone [From BuSpar] Allergy Other Verified 08/02/18 20:37 cephalexin Allergy Rash Verified 08/02/18 20:37 doxycycline Allergy Itching Verified 08/02/18 20:37 duloxetine [From Cymbalta] Allergy Cannot Verified 08/02/18 20:37 Remember erythromycin base Allergy Itching Verified 08/02/18 20:37 escitalopram [From Lexapro] Allergy Cannot Verified 08/02/18 20:37 Remember hydromorphone [From Dilaudid] Allergy Pain Verified 08/02/18 20:37 Iodinated Contrast- Oral and Allergy Rash Verified 08/02/18 20:37 IV Dye [Iodinated Contrast Media - Oral and] metronidazole Allergy Cannot Verified 08/02/18 20:37 Remember nortriptyline [From Pamelor] Allergy Insomnia Verified 08/02/18 20:37 paroxetine [From Paxil] Allergy Headache Verified 08/02/18 20:37 Penicillins Allergy Itching Verified 08/02/18 20:37 sertraline [From Zoloft] Allergy Rash Verified 08/02/18 20:38 spironolactone Allergy Cannot Verified 08/02/18 20:37 Remember Sulfa (Sulfonamide Allergy Itching Verified 08/02/18 20:37 Antibiotics) vancomycin Allergy Rash Verified 08/02/18 20:37 levofloxacin [From Levaquin] AdvReac Nausea Verified 08/02/18 20:37 Home Meds: Home Meds Cholecalciferol (Vitamin D3) [Vitamin D3] 5,000 unit PO BEDTIME 10/07/16 [ History] Levothyroxine 137 mcg PO ACBREAKFAST 10/07/16 [History] Liothyronine [Cytomel] 15 mcg PO DAILY 10/07/16 [History] Magnesium 800 mg PO BEDTIME 10/07/16 [History] traZODone 100 mg PO BEDTIME 11/18/16 [History] Diltiazem [Cardizem CD] 180 mg PO BID 12/24/16 [History] Metoprolol Succinate 25 mg PO DAILY 12/24/16 [History] Rivaroxaban [Xarelto] 20 mg PO DAILY 12/24/16 [History] Furosemide [Lasix] 40 mg PO DAILY 04/01/18 [History] Calcium Citrate 4 tab PO DAILY 07/23/18 [History] Potassium Chloride [Klor-Con M20] 10 meq PO BID 07/23/18 [History] Sertraline [Zoloft] 50 mg PO BEDTIME 07/23/18 [History] Tobramycin 0.3% [Tobramycin 0.3% Ophth Soln] 2 drop EYEBOTH QID 07/23/18 [ History] Past Medical History HEENT History: Reports: Impaired Vision Cardiovascular History: Reports: Afib, High Cholesterol, Hypertension Gastrointestinal History: Reports: GERD Genitourinary History: Reports: Other (See Below) Other Genitourinary History: was on an antibiotic care home 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 [employer]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: Reports: Musculoskeletal History: Reports: Fracture Other Musculoskeletal History: Collar bone fx Psychiatric History: Reports: Anxiety Endocrine/Metabolic History: Reports: Hypoparathyroidism Other Endocrine/Metabolic History: pseudo Hematologic History: Reports: Anemia, B12 Deficiency, Iron Deficiency Immunologic History: Reports: Other (See Below) Other Immunologic History: hepatitis Dermatologic History: Reports: Other (See Below) Other Dermatologic History: breast yeast - Infectious Disease History Infectious Disease History: Reports: C-Difficile, Hepatitis A, Measles, Mumps Other Infectious Disease History: hepatitis - Past Surgical History HEENT Surgical History: Reports: Naso-Sinus Surgery, Tonsillectomy Female Surgical History: Reports: Breast Biopsy, Hysterectomy Musculoskeletal Surgical History: Reports: Knee Replacement Social & Family History - Tobacco Use Smoking Status *Q: Never Smoker - Caffeine Use Caffeine Use: Reports: Coffee - Recreational Drug Use Recreational Drug Use: No ED ROS GENERAL - Review of Systems Review Of Systems: See Below Constitutional: Reports: Weakness HEENT: Reports: No Symptoms Respiratory: Reports: Shortness of Breath Cardiovascular: Reports: Palpitations GI/Abdominal: Reports: No Symptoms : Reports: No Symptoms Musculoskeletal: Reports: No Symptoms Skin: Reports: No Symptoms ED EXAM, GENERAL - Physical Exam Exam: See Below Exam Limited By: No Limitations General Appearance: Alert, WD/WN, No Apparent Distress Eye Exam: Bilateral Eye: Normal Inspection Ears: Normal External Exam, Normal Canal, Hearing Grossly Normal, Normal TMs Nose: Normal Inspection, Normal Mucosa, No Blood Throat/Mouth: Normal Inspection, Normal Lips, Normal Teeth, Normal Gums, Normal Oropharynx, Normal Voice, No Airway Compromise Head: Atraumatic, Normocephalic Neck: Normal Inspection, Supple, Non-Tender, Full Range of Motion Respiratory/Chest: No Respiratory Distress, Lungs Clear, Normal Breath Sounds, No Accessory Muscle Use Cardiovascular: Tachycardia GI/Abdominal: Soft, Non-Tender ED CARDIOLOGY PROCEDURES - Cardioversion Time of Cardioversion: 22:24 Indication: Atrial Fibrillation with RVR Patient Counseled: Yes Informed Consent Obtained: Yes Preparation: IV Access, Airway Management Equipment, Supplemental Oxygen, Monitor Pre-Procedure Sedation: Propofol Cardioversion Energy: 200J Sync Mode: Biphasic Successful: Yes Number of Attempts: 2 Patient Condition Post Cardioversion: Improved Post Cardioversion EKG Reviewed: Yes - Additional/Other Procedure(s) Other (Free Text) Procedure(s): Preprocedure diagnosis: atrial fibrillation with rapid ventricular response Postprocedure diagnosis: Normal sinus rhythm Indication for procedure: Symptomatic with dyspnea on exertion Performing physician: Tramaine Pal M.D. Procedure: Patient is located emergency department. Review risks and benefits of electrical cardioversion including but not limited to: Superficial skin mckeon , effective treatment, unknown arrhythmias, reaction to anesthesia medications or asystole. The risks and benefits to this procedure have been discussed. Patient wishes to proceed with electrical cardioversion. The patient was connected to cardioversion pads with EKG monitoring, oxygen via nasal cannula with equipment of intubation and suction in the room. Paperwork was completed prior to the procedure with timeout performed by nursing staff. After adequate anesthesia was achieved the machine was charged to 200 joules and a synchronized electrical shock was applied. The initial shock delivered was unsuccessful a second shock of 250 J was applied. Patient was successfully converted to normal sinus rhythm based on telemetry monitoring. Patient will remain in the emergency department for post anesthesia care until awake and alert. Plan is to discharge home. Anticoagulation of Xarelto Consultations: None apparent Postprocedural EKG: Demonstrates a sinus rhythm with atrial premature complexes Course - Vital Signs Last Recorded V/S: Last Vital Signs Temp 96.4 F 08/02/18 20:35 Pulse 125 H 08/02/18 21:57 Resp 16 08/02/18 21:57 BP 157/89 H 08/02/18 21:57 Pulse Ox 94 L 08/02/18 21:57 - Orders/Labs/Meds Orders: Active Orders 24 hr Category Date Time Status Cardiac Monitoring [RC] .As Directed Care 08/02/18 20:57 Active EKG Documentation Completion [RC] ASDIRECTED Care 08/02/18 20:57 Active EKG Documentation Completion [RC] ASDIRECTED Care 08/02/18 22:14 Active Peripheral IV Care [RC] . DIRECTED Care 08/02/18 20:57 Active Sodium Chloride 0.9% [Normal Saline] 1,000 ml Med 08/02/18 22:00 Active IV ASDIRECTED Sodium Chloride 0.9% [Saline Flush] Med 08/02/18 20:57 Active 10 ml FLUSH ASDIRECTED PRN Peripheral IV Insertion Adult [OM.PC] Stat Oth 08/02/18 20:57 Ordered Saline Lock Insert [OM.PC] Stat Oth 08/02/18 20:57 Ordered EKG 12 Lead [EK] Stat Ther 08/02/18 20:57 Ordered EKG 12 Lead [EK] Stat Ther 08/02/18 22:14 Ordered Medication Orders Sodium Chloride (Normal Saline) 1,000 mls @ 50 mls/hr IV ASDIRECTED ALEJANDRO Last Admin: 08/02/18 22:05 Dose: 50 mls/hr Sodium Chloride (Saline Flush) 10 ml FLUSH ASDIRECTED PRN PRN Reason: Keep Vein Open Last Admin: 08/02/18 21:01 Dose: 10 ml Labs: Laboratory Tests 08/02/18 08/02/1808/02/18 Range/Units 21:00 21:02 21:02 WBC 8.7 (4.5-11.0) K/uL RBC 4.72 (3.30-5.50) M/uL Hgb 11.6 L (12.0-15.0) g/dL Hct 35.8 L (36.0-48.0) % MCV 76 L (80-98) fL MCH 25 L (27-31) pg MCHC 32 (32-36) % Plt Count 331 (150-400) K/uL Neut % (Auto) 66 (36-66) % Lymph % (Auto) 22 L (24-44) % Coos % (Auto) 10 H (2-6) % Eos % (Auto) 2 (2-4) % Baso % (Auto) 1 (0-1) % Sodium 138 L (140-148) mmol/L Potassium 3.7 (3.6-5.2) mmol/L Chloride 104 (100-108) mmol/L Carbon Dioxide 26 (21-32) mmol/L Anion Gap 11.7 (5.0-14.0) mmol/L BUN 27 H D (7-18) mg/dL Creatinine 1.0 (0.6-1.0) mg/dL Est Cr Clr Drug Dosing 41.97 mL/min Estimated GFR (MDRD) 54 L (>60) Glucose 86 (74-106) mg/dL Calcium 8.4 L (8.5-10.1) mg/dL Magnesium 2.1 (1.8-2.4) mg/dL Total Bilirubin 0.2 (0.2-1.0) mg/dL AST 18 (15-37) U/L ALT 34 (12-78) U/L Alkaline Phosphatase 111 (46-116) U/L Troponin I < 0.017 (0.000-0.056) ng/mL Total Protein 7.2 (6.4-8.2) g/dL Albumin 3.3 L (3.4-5.0) g/dL Globulin 3.9 H (2.3-3.5) g/dL Albumin/Globulin Ratio 0.9 L (1.2-2.2) TSH, Ultra Sensitive (0.358-3.740) uIU/mL 08/02/18 Range/Units 21:02 WBC (4.5-11.0) K/uL RBC (3.30-5.50) M/uL Hgb (12.0-15.0) g/dL Hct (36.0-48.0) % MCV (80-98) fL MCH (27-31) pg MCHC (32-36) % Plt Count (150-400) K/uL Neut % (Auto) (36-66) % Lymph % (Auto) (24-44) % Coos % (Auto) (2-6) % Eos % (Auto) (2-4) % Baso % (Auto) (0-1) % Sodium (140-148) mmol/L Potassium (3.6-5.2) mmol/L Chloride (100-108) mmol/L Carbon Dioxide (21-32) mmol/L Anion Gap (5.0-14.0) mmol/L BUN (7-18) mg/dL Creatinine (0.6-1.0) mg/dL Est Cr Clr Drug Dosing mL/min Estimated GFR (MDRD) (>60) Glucose (74-106) mg/dL Calcium (8.5-10.1) mg/dL Magnesium (1.8-2.4) mg/dL Total Bilirubin (0.2-1.0) mg/dL AST (15-37) U/L ALT (12-78) U/L Alkaline Phosphatase (46-116) U/L Troponin I (0.000-0.056) ng/mL Total Protein (6.4-8.2) g/dL Albumin (3.4-5.0) g/dL Globulin (2.3-3.5) g/dL Albumin/Globulin Ratio (1.2-2.2) TSH, Ultra Sensitive 2.470 (0.358-3.740) uIU/mL Meds: Medications Generic Name Dose Route Start Last Admin Trade Name Freq PRN Reason Stop Dose Admin Sodium Chloride 1,000 mls @ 50 mls/hr 08/02/18 22:00 08/02/18 22:05 Normal Saline IV 50 mls/hr ASDIRECTED ALEJANDRO Administration Sodium Chloride 10 ml 08/02/18 20:57 08/02/18 21:01 Saline Flush FLUSH 10 ml ASDIRECTED PRN Administration Keep Vein Open Departure - Departure Time of Disposition: 22:32 Disposition: Home, Self-Care 01 Condition: Fair Clinical Impression: Atrial fibrillation with rapid ventricular response Referrals: Rashida Herzog PA [Primary Care Provider] - Forms: ED Department Discharge Additional Instructions: keep you appointment with cardiology on Thursday, call or return to the emergency department worsening of symptoms - My Orders Last 24 Hours: My Active Orders 08/02/18 20:57 Cardiac Monitoring [RC] .As Directed EKG Documentation Completion [RC] ASDIRECTED Peripheral IV Care [RC] . DIRECTED Sodium Chloride 0.9% [Saline Flush] 10 ml FLUSH ASDIRECTED PRN Peripheral IV Insertion Adult [OM.PC] Stat Saline Lock Insert [OM.PC] Stat EKG 12 Lead [EK] Stat 08/02/18 22:00 Sodium Chloride 0.9% [Normal Saline] 1,000 ml IV ASDIRECTED 08/02/18 22:14 EKG Documentation Completion [RC] ASDIRECTED EKG 12 Lead [EK] Stat - Assessment/Plan Last 24 Hours: My Active Orders 08/02/18 20:57 Cardiac Monitoring [RC] .As Directed EKG Documentation Completion [RC] ASDIRECTED Peripheral IV Care [RC] . DIRECTED Sodium Chloride 0.9% [Saline Flush] 10 ml FLUSH ASDIRECTED PRN Peripheral IV Insertion Adult [OM.PC] Stat Saline Lock Insert [OM.PC] Stat EKG 12 Lead [EK] Stat 08/02/18 22:00 Sodium Chloride 0.9% [Normal Saline] 1,000 ml IV ASDIRECTED 08/02/18 22:14 EKG Documentation Completion [RC] ASDIRECTED EKG 12 Lead [EK] Stat Plan: Assessment Acuity = acute Site and laterality = atrial fibrillation with rapid ventricular response Etiology = unknown etiology Manifestations = dyspnea on exertion now improved Location of injury = Home Lab values = initial EKG demonstrates atrial fibrillation on what the rate of 140 repeat EKG shows a sinus rhythm at 70 CMP unremarkable, troponin was negative, TSH normal 2.47 magnesium normal at 2.1 hemoglobin low 11.6 consistent normochromic anemia, remainder of CBC Plan She has a follow-up appointment with cardiology in 2 days on Thursday This note was dictated using [employer] voice recognition software please call with any questions on syntax or grammar.
[2018-08-02] MEDS ORDERED: Sodium Chloride 0.9% 1,000 ML IV SCH (22:00)
[2018-08-02 22:37] VITALS: BP 128/59
== END 2018-08-02 23:17 | disposition home or self-care (01) ==
LOC: JP.ED 20:17
DX: I48.91 Unspecified atrial fibrillation (principal); I10 Essential (primary) hypertension; E78.00 Pure hypercholesterolemia, unspecified; K21.9 Gastro-esophageal reflux disease without esophagitis; Z88.8 Allergy status to other drugs, medicaments and biological substances; Z88.1 Allergy status to other antibiotic agents; Z79.899 Other long term (current) drug therapy
CPT/HCPCS: 36415; 80053; 83735; 84443; 84484; 85025; 92960; 93005; 96360; 99284; J7030; J7050

== ENCOUNTER 2019-03-19 18:25 | Emergency (ER) | payer MEDICARE ==
[2019-03-19] MEDS ORDERED: Sodium Chloride 0.9% 10 ML Syringe FLUSH PRN (19:11)
[2019-03-19] MEDS ORDERED: Diltiazem 180 MG Cap.CD PO ONE (19:16)
--- NOTE | 2019-03-19 19:19 | EDM.PDOC ---
ED HPI GENERAL MEDICAL PROBLEM - General Chief Complaint: Chest Pain Stated Complaint: A FIB Time Seen by Provider: 03/19/19 19:09 Source of Information: Reports: Patient, RN Notes Reviewed History Limitations: Reports: No Limitations - History of Present Illness INITIAL COMMENTS - FREE TEXT/NARRATIVE: 74-year-old female presents emergency department today with complaint of chest heaviness, she has a known history of atrial fibrillation status post ablation December 2018, she states she has been having problems to her ablation she will bounce in and out of atrial fibrillation she is on anticoagulation therapy of warfarin. For this particular event she believes she has been in atrial fibrillation for the last 2 days she feels chest heaviness and shortness of breath no nausea vomiting no, she initially was diaphoretic upon presentation today Anterior Chest Pain Score (Numeric/FACES): 6 - Related Data Allergies Allergy/AdvReac Type Severity Reaction Status Date / Time amitriptyline Allergy Insomnia Verified 03/19/19 18:59 ampicillin Allergy Itching Verified 03/19/19 18:59 buspirone [From BuSpar] Allergy Other Verified 03/19/19 18:59 cephalexin Allergy Rash Verified 03/19/19 18:59 doxycycline Allergy Itching Verified 03/19/19 18:59 duloxetine [From Cymbalta] Allergy Cannot Verified 03/19/19 18:59 Remember erythromycin base Allergy Itching Verified 03/19/19 18:59 escitalopram [From Lexapro] Allergy Cannot Verified 03/19/19 18:59 Remember hydromorphone [From Dilaudid] Allergy Pain Verified 03/19/19 18:59 Iodinated Contrast- Oral and Allergy Rash Verified 03/19/19 18:59 IV Dye [Iodinated Contrast Media - Oral and] metronidazole Allergy Cannot Verified 03/19/19 18:59 Remember nortriptyline [From Pamelor] Allergy Insomnia Verified 03/19/19 18:59 paroxetine [From Paxil] Allergy Headache Verified 03/19/19 18:59 Penicillins Allergy Itching Verified 03/19/19 18:59 spironolactone Allergy Cannot Verified 03/19/19 18:59 Remember Sulfa (Sulfonamide Allergy Itching Verified 03/19/19 18:59 Antibiotics) vancomycin Allergy Rash Verified 03/19/19 18:59 levofloxacin [From Levaquin] AdvReac Nausea Verified 03/19/19 18:59 Home Meds: Home Meds Cholecalciferol (Vitamin D3) [Vitamin D3] 2,000 unit PO BEDTIME 10/07/16 [ History] Levothyroxine 137 mcg PO ACBREAKFAST 10/07/16 [History] Liothyronine [Cytomel] 15 mcg PO DAILY 10/07/16 [History] Magnesium 800 mg PO BEDTIME 10/07/16 [History] traZODone 100 mg PO BEDTIME 11/18/16 [History] Diltiazem [Cardizem CD] 180 mg PO BID 12/24/16 [History] Metoprolol Succinate 25 mg PO DAILY 12/24/16 [History] Furosemide [Lasix] 40 mg PO DAILY 04/01/18 [History] Calcium Citrate 4 tab PO DAILY 07/23/18 [History] Potassium Chloride [Klor-Con M20] 10 meq PO DAILY 07/23/18 [History] Sertraline [Zoloft] 75 mg PO DAILY 07/23/18 [History] Past Medical History HEENT History: Reports: Impaired Vision Cardiovascular History: Reports: Afib, High Cholesterol, Hypertension Gastrointestinal History: Reports: GERD Genitourinary History: Reports: Other (See Below) Other Genitourinary History: 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 antibiotic 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: Musculoskeletal History: Reports: Fracture Other Musculoskeletal History: Collar bone fx Psychiatric History: Reports: Anxiety Endocrine/Metabolic History: Reports: Hypoparathyroidism Other Endocrine/Metabolic History: pseudo Hematologic History: Reports: Anemia, B12 Deficiency, Iron Deficiency Immunologic History: Reports: Other (See Below) Other Immunologic History: hepatitis Dermatologic History: Reports: Other (See Below) Other Dermatologic History: breast yeast - Infectious Disease History Infectious Disease History: Reports: Chicken Pox, Measles, Mumps Other Infectious Disease History: hepatitis - Past Surgical History HEENT Surgical History: Reports: Naso-Sinus Surgery, Tonsillectomy Cardiovascular Surgical History: Reports: Cardiac Ablation Female Surgical History: Reports: Breast Biopsy, Hysterectomy Musculoskeletal Surgical History: Reports: Knee Replacement Social & Family History - Family History Family Medical History: Noncontributory - Tobacco Use Smoking Status *Q: Never Smoker Second Hand Smoke Exposure: No - Caffeine Use Caffeine Use: Reports: Coffee - Recreational Drug Use Recreational Drug Use: No ED ROS GENERAL - Review of Systems Review Of Systems: See Below Constitutional: Reports: Diaphoresis HEENT: Reports: No Symptoms Respiratory: Reports: Shortness of Breath Cardiovascular: Reports: Chest Pain, Dyspnea on Exertion GI/Abdominal: Reports: No Symptoms : Reports: No Symptoms Musculoskeletal: Reports: No Symptoms ED EXAM, GENERAL - Physical Exam Exam: See Below Exam Limited By: No Limitations General Appearance: Alert, WD/WN, No Apparent Distress Respiratory/Chest: No Respiratory Distress, Lungs Clear, Normal Breath Sounds, No Accessory Muscle Use, Chest Non-Tender Cardiovascular: No Murmur, Irregularly Irregular GI/Abdominal: Soft, Non-Tender Course - Vital Signs Last Recorded V/S: Last Vital Signs Temp 97 F 03/19/19 18:58 Pulse 141 H 03/19/19 18:58 Resp 19 03/19/19 18:58 BP 145/84 H 03/19/19 18:58 Pulse Ox 97 03/19/19 18:58 - Orders/Labs/Meds Orders: Active Orders 24 hr Category Date Time Status Cardiac Monitoring [RC] .As Directed Care 03/19/19 19:11 Active EKG Documentation Completion [RC] ASDIRECTED Care 03/19/19 19:12 Active Peripheral IV Care [RC] . DIRECTED Care 03/19/19 19:12 Active Sodium Chloride 0.9% [Saline Flush] Med 03/19/19 19:11 Active 10 ml FLUSH ASDIRECTED PRN Peripheral IV Insertion Adult [OM.PC] Stat Oth 03/19/19 19:11 Ordered Saline Lock Insert [OM.PC] Stat Oth 03/19/19 19:11 Ordered EKG 12 Lead [EK] Stat Ther 03/19/19 19:12 Ordered Medication Orders Sodium Chloride (Saline Flush) 10 ml FLUSH ASDIRECTED PRN PRN Reason: Keep Vein Open Last Admin: 03/19/19 19:33 Dose: 10 ml Labs: Laboratory Tests 03/19/19 03/19/19 03/19/19 Range/Units 19:21 19:21 19:21 WBC 7.7 (4.5-11.0) K/uL RBC 5.00 (3.30-5.50) M/uL Hgb 11.4 L (12.0-15.0) g/dL Hct 36.6 (36.0-48.0) % MCV 73 L (80-98) fL MCH 23 L (27-31) pg MCHC 31 L (32-36) % Plt Count 332 (150-400) K/uL Neut % (Auto) 54 (36-66) % Lymph % (Auto) 29 (24-44) % Kidder % (Auto) 15 H (2-6) % Eos % (Auto) 2 (2-4) % Baso % (Auto) 1 (0-1) % PT (9.5-12.0) sec INR (0.80-1.20) Sodium 141 (140-148) mmol/L Potassium 3.6 (3.6-5.2) mmol/L Chloride 103 (100-108) mmol/L Carbon Dioxide 24 (21-32) mmol/L Anion Gap 17.6 H (5.0-14.0) mmol/L BUN 16 (7-18) mg/dL Creatinine 0.9 (0.6-1.0) mg/dL Est Cr Clr Drug Dosing 49.01 mL/min Estimated GFR (MDRD) > 60 (>60) Glucose 91 (74-106) mg/dL Calcium 8.6 (8.5-10.1) mg/dL Total Bilirubin 0.2 (0.2-1.0) mg/dL AST 16 (15-37) U/L ALT 27 (12-78) U/L Alkaline Phosphatase 131 H (46-116) U/L Troponin I < 0.017 (0.000-0.056) ng/mL Total Protein 7.6 (6.4-8.2) g/dL Albumin 3.3 L (3.4-5.0) g/dL Globulin 4.3 H (2.3-3.5) g/dL Albumin/Globulin Ratio 0.8 L (1.2-2.2) TSH, Ultra Sensitive 0.299 L (0.358-3.740) uIU/mL 03/19/19 Range/Units 19:21 WBC (4.5-11.0) K/uL RBC (3.30-5.50) M/uL Hgb (12.0-15.0) g/dL Hct (36.0-48.0) % MCV (80-98) fL MCH (27-31) pg MCHC (32-36) % Plt Count (150-400) K/uL Neut % (Auto) (36-66) % Lymph % (Auto) (24-44) % Kidder % (Auto) (2-6) % Eos % (Auto) (2-4) % Baso % (Auto) (0-1) % PT 27.2 H (9.5-12.0) sec INR 2.61 H (0.80-1.20) Sodium (140-148) mmol/L Potassium (3.6-5.2) mmol/L Chloride (100-108) mmol/L Carbon Dioxide (21-32) mmol/L Anion Gap (5.0-14.0) mmol/L BUN (7-18) mg/dL Creatinine (0.6-1.0) mg/dL Est Cr Clr Drug Dosing mL/min Estimated GFR (MDRD) (>60) Glucose (74-106) mg/dL Calcium (8.5-10.1) mg/dL Total Bilirubin (0.2-1.0) mg/dL AST (15-37) U/L ALT (12-78) U/L Alkaline Phosphatase (46-116) U/L Troponin I (0.000-0.056) ng/mL Total Protein (6.4-8.2) g/dL Albumin (3.4-5.0) g/dL Globulin (2.3-3.5) g/dL Albumin/Globulin Ratio (1.2-2.2) TSH, Ultra Sensitive (0.358-3.740) uIU/mL Meds: Medications Generic Name Dose Route Start Last Admin Trade Name Freq PRN Reason Stop Dose Admin Sodium Chloride 10 ml 03/19/19 19:11 03/19/19 19:33 Saline Flush FLUSH 10 ml ASDIRECTED PRN Administration Keep Vein Open Discontinued Medications Generic Name Dose Route Start Last Admin Trade Name Freq PRN Reason Stop Dose Admin Diltiazem HCl 180 mg 03/19/19 19:16 03/19/19 19:32 Cardizem Cd PO 03/19/19 19:17 180 mg ONETIME ONE Administration Diltiazem HCl 10 mg 03/19/19 20:20 03/19/19 20:30 Diltiazem IVPUSH 03/19/19 20:21 10 mg ONETIME ONE Administration Departure - Departure Time of Disposition: 20:59 Disposition: Home, Self-Care 01 Condition: Fair Clinical Impression: Atrial fibrillation with rapid ventricular response Referrals: Bibi Garcia MD [Primary Care Provider] - Forms: ED Department Discharge Additional Instructions: Increase your metoprolol to 25 mg by mouth twice a day please call your nuclear physics teacher in the morning for further evaluation, call return to the ED with worsening of symptoms - My Orders Last 24 Hours: My Active Orders 03/19/19 19:11 Cardiac Monitoring [RC] .As Directed Sodium Chloride 0.9% [Saline Flush] 10 ml FLUSH ASDIRECTED PRN Peripheral IV Insertion Adult [OM.PC] Stat Saline Lock Insert [OM.PC] Stat 03/19/19 19:12 EKG Documentation Completion [RC] ASDIRECTED Peripheral IV Care [RC] . DIRECTED EKG 12 Lead [EK] Stat - Assessment/Plan Last 24 Hours: My Active Orders 03/19/19 19:11 Cardiac Monitoring [RC] .As Directed Sodium Chloride 0.9% [Saline Flush] 10 ml FLUSH ASDIRECTED PRN Peripheral IV Insertion Adult [OM.PC] Stat Saline Lock Insert [OM.PC] Stat 03/19/19 19:12 EKG Documentation Completion [RC] ASDIRECTED Peripheral IV Care [RC] . DIRECTED EKG 12 Lead [EK] Stat Plan: Assessment Acuity = acute Site and laterality = atrial fibrillation with rapid ventricular response Etiology = unknown etiology Manifestations = none Location of injury = Home Lab values = CBC CMP unremarkable INR therapeutic at 2.6 troponin was negative TSH 0.299 Plan she had good improvement with Cardizem provided heart rate is averaging around 110 plan is discharge home she is getting continue with her Cardizem will increase the metoprolol to 25 mg by mouth twice a day and she will call her nuclear physics teacher on Thursday for reevaluation This note was dictated using [employer] voice recognition software please call with any questions on syntax or grammar.
--- NOTE | 2019-03-19 20:03 | CRLCR ---
INDICATION: Chest pain. TECHNIQUE: Portable upright AP view of the chest. COMPARISON: 04/02/2018. FINDINGS: Cardiac, mediastinal and hilar contours are within normal limits. Pulmonary vasculature is unremarkable. Lungs are grossly clear. No pleural fluid or pneumothorax. IMPRESSION: No signs of acute cardiopulmonary disease. Dictated by Alfonso Patterson MD @ 03/19/2019 8:01:33 PM Dictated by: Alfonso Patterson MD @ 03/19/2019 20:01:47 (Electronically Signed)
[2019-03-19] MEDS ORDERED: Diltiazem 25 MG/5 ML SDV IVPUSH ONE (20:20)
[2019-03-19 21:32] VITALS: BP 153/82
== END 2019-03-19 21:15 | disposition home or self-care (01) ==
LOC: JP.ED 18:25
DX: I48.91 Unspecified atrial fibrillation (principal); I10 Essential (primary) hypertension; Z88.8 Allergy status to other drugs, medicaments and biological substances; Z88.1 Allergy status to other antibiotic agents; Z88.0 Allergy status to penicillin; Z88.2 Allergy status to sulfonamides; Z79.899 Other long term (current) drug therapy
CPT/HCPCS: 36415; 71045; 80053; 84443; 84484; 85025; 85610; 93005; 96374; 99284; 99285; A9270; J3490; 93010

== ENCOUNTER 2020-04-24 18:00 | Emergency (ER) | payer MEDICARE ==
[2020-04-24] MEDS ORDERED: Ketorolac 30 MG/ML SDV IM ONE (18:35)
--- NOTE | 2020-04-24 18:39 | EDM.PDOC ---
ED HPI GENERAL MEDICAL PROBLEM - General Chief Complaint: Respiratory Problem Stated Complaint: SOB Time Seen by Provider: 04/24/20 18:25 Source of Information: Reports: Patient, RN Notes Reviewed History Limitations: Reports: No Limitations - History of Present Illness INITIAL COMMENTS - FREE TEXT/NARRATIVE: 75-year-old female presents the emergency department today complaint of jaw pain she states she has had jaw pain for the last 3 weeks she did try some ibuprofen yesterday which provided some relief for her she also has noticed some swelling in her lymph nodes in her neck. She states she has felt feverish at home no nausea vomiting no chest pain she has felt short of breath however this is been going on for several months since her last ablation for atrial fibrillation - Related Data Allergies Allergy/AdvReac Type Severity Reaction Status Date / Time amitriptyline Allergy Insomnia Verified 04/24/20 18:15 ampicillin Allergy Itching Verified 04/24/20 18:15 buspirone [From BuSpar] Allergy Other Verified 04/24/20 18:15 cephalexin Allergy Rash Verified 04/24/20 18:15 doxycycline Allergy Itching Verified 04/24/20 18:15 duloxetine [From Cymbalta] Allergy Cannot Verified 04/24/20 18:15 Remember erythromycin base Allergy Itching Verified 04/24/20 18:15 escitalopram [From Lexapro] Allergy Cannot Verified 04/24/20 18:15 Remember hydromorphone [From Dilaudid] Allergy Pain Verified 04/24/20 18:15 Iodinated Contrast Media Allergy Rash Verified 04/24/20 18:15 [Iodinated Contrast Media - Oral and] metronidazole Allergy Cannot Verified 04/24/20 18:15 Remember nortriptyline [From Pamelor] Allergy Insomnia Verified 04/24/20 18:15 paroxetine [From Paxil] Allergy Headache Verified 04/24/20 18:15 Penicillins Allergy Itching Verified 04/24/20 18:15 spironolactone Allergy Cannot Verified 04/24/20 18:15 Remember Sulfa (Sulfonamide Allergy Itching Verified 04/24/20 18:15 Antibiotics) vancomycin Allergy Rash Verified 04/24/20 18:15 levofloxacin [From Levaquin] AdvReac Nausea Verified 04/24/20 18:15 Home Meds: Home Meds Cholecalciferol (Vitamin D3) [Vitamin D3] 2,000 unit PO BEDTIME 10/07/16 [ History] Levothyroxine 137 mcg PO ACBREAKFAST 10/07/16 [History] Liothyronine [Cytomel] 15 mcg PO DAILY 10/07/16 [History] Magnesium 800 mg PO BEDTIME 10/07/16 [History] traZODone 100 mg PO BEDTIME 11/18/16 [History] Diltiazem [Cardizem CD] 180 mg PO BID 12/24/16 [History] Metoprolol Succinate 50 mg PO DAILY 12/24/16 [History] Calcium Citrate 4 tab PO DAILY 07/23/18 [History] Potassium Chloride [Klor-Con M20] 10 meq PO DAILY 07/23/18 [History] Sertraline [Zoloft] 75 mg PO DAILY 07/23/18 [History] Warfarin Sodium [Coumadin] 5 mg PO ASDIRECTED 04/24/20 [History] hydroCHLOROthiazide [Hydrochlorothiazide] 25 mg PO DAILY 04/24/20 [History] Past Medical History HEENT History: Reports: Impaired Vision Cardiovascular History: Reports: Afib (Status post ablation), High Cholesterol, Hypertension Gastrointestinal History: Reports: GERD Genitourinary History: Reports: Other (See Below) Other Genitourinary History: 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: Musculoskeletal History: Reports: Fracture Other Musculoskeletal History: Collar bone fx Psychiatric History: Reports: Anxiety Endocrine/Metabolic History: Reports: Hypoparathyroidism Other Endocrine/Metabolic History: pseudo Hematologic History: Reports: Anemia, B12 Deficiency, Iron Deficiency Immunologic History: Reports: Other (See Below) Other Immunologic History: hepatitis Dermatologic History: Reports: Other (See Below) Other Dermatologic History: breast yeast, has chronic open areas on arms and face - Infectious Disease History Infectious Disease History: Reports: Chicken Pox, Measles, Mumps Other Infectious Disease History: hepatitis - Past Surgical History Head Surgeries/Procedures: Reports: None HEENT Surgical History: Reports: Naso-Sinus Surgery, Tonsillectomy Cardiovascular Surgical History: Reports: Cardiac Ablation GI Surgical History: Reports: Appendectomy, Cholecystectomy Female Surgical History: Reports: Breast Biopsy, Hysterectomy Endocrine Surgical History: Reports: None Musculoskeletal Surgical History: Reports: Knee Replacement Dermatological Surgical History: Reports: None Social & Family History - Family History Family Medical History: Noncontributory - Tobacco Use Smoking Status *Q: Never Smoker Second Hand Smoke Exposure: No - Caffeine Use Caffeine Use: Reports: Coffee - Recreational Drug Use Recreational Drug Use: No ED ROS GENERAL - Review of Systems Review Of Systems: See Below Constitutional: Reports: Fever, Chills HEENT: Reports: Other (Swollen glands in the neck) Respiratory: Reports: Shortness of Breath (Chronic) Cardiovascular: Reports: Dyspnea on Exertion (Chronic) GI/Abdominal: Reports: No Symptoms : Reports: No Symptoms ED EXAM, GENERAL - Physical Exam Exam: See Below Exam Limited By: No Limitations General Appearance: Alert, WD/WN, No Apparent Distress Ears: Normal External Exam, Normal Canal, Hearing Grossly Normal, Normal TMs Nose: Normal Inspection, Normal Mucosa, No Blood Throat/Mouth: Normal Inspection, Normal Lips, Normal Teeth, Normal Gums, Normal Oropharynx, Normal Voice, No Airway Compromise, Other (Pain with opening her mouth wide) Head: Atraumatic, Normocephalic Neck: Full Range of Motion, Lymphadenopathy (R), Lymphadenopathy (L). No: Tender Lateral, Tender Midline, Thyromegaly Respiratory/Chest: No Respiratory Distress, Lungs Clear, Normal Breath Sounds, No Accessory Muscle Use, Chest Non-Tender Cardiovascular: Regular Rate, Rhythm, No Murmur GI/Abdominal: Soft, Non-Tender Back Exam: No: CVA Tenderness (R), CVA Tenderness (L) Extremities: No Pedal Edema Course - Vital Signs Last Recorded V/S: Last Vital Signs Temp 96.3 F L 04/24/20 18:18 Pulse 62 04/24/20 21:24 Resp 15 04/24/20 21:24 BP 155/66 H 04/24/20 21:24 Pulse Ox 99 04/24/20 21:24 - Orders/Labs/Meds Orders: Active Orders 24 hr Category Date Time Status Peripheral IV Care [RC] . DIRECTED Care 04/24/20 19:14 Active Lactated Ringers [Ringers, Lactated] 1,000 ml Med 04/24/20 19:15 Active IV ASDIRECTED Sodium Chloride 0.9% [Saline Flush] Med 04/24/20 19:14 Active 10 ml FLUSH ASDIRECTED PRN Peripheral IV Insertion Adult [OM.PC] Routine Oth 04/24/20 19:14 Ordered Medication Orders Lactated Ringer's (Ringers, Lactated) 1,000 mls @ 250 mls/hr IV ASDIRECTED ALEJANDRO Last Admin: 04/24/20 19:36 Dose: 250 mls/hr Sodium Chloride (Saline Flush) 10 ml FLUSH ASDIRECTED PRN PRN Reason: Keep Vein Open Last Admin: 04/24/20 19:36 Dose: 10 ml Labs: Laboratory Tests 04/24/20 04/24/20 04/24/20 Range/Units 18:44 18:44 18:44 WBC 6.2 (4.5-11.0) K/uL RBC 4.27 (3.30-5.50) M/uL Hgb 8.8 L D (12.0-15.0) g/dL Hct 29.9 L (36.0-48.0) % MCV 70 L (80-98) fL MCH 21 L (27-31) pg MCHC 29 L (32-36) % Plt Count 335 (150-400) K/uL Neut % (Auto) 66 (36-66) % Lymph % (Auto) 19 L (24-44) % [place] % (Auto) 11 H (2-6) % Eos % (Auto) 3 (2-4) % Baso % (Auto) 0 (0-1) % Sodium 140 (140-148) mmol/L Potassium 2.9 L* (3.6-5.2) mmol/L Chloride 102 (100-108) mmol/L Carbon Dioxide 28 (21-32) mmol/L Anion Gap 12.9 (5.0-14.0) mmol/L BUN 14 (7-18) mg/dL Creatinine 0.9 (0.6-1.0) mg/dL Est Cr Clr Drug Dosing 46.15 mL/min Estimated GFR (MDRD) > 60 (>60) Glucose 114 H (74-106) mg/dL Lactic Acid (0.4-2.0) mmol/L Calcium 8.2 L (8.5-10.1) mg/dL Total Bilirubin 0.2 (0.2-1.0) mg/dL AST 18 (15-37) U/L ALT 27 (12-78) U/L Alkaline Phosphatase 100 (46-116) U/L C-Reactive Protein 0.61 H (0.0-0.3) mg/dL NT-Pro-B Natriuret Pep 216 (5-450) pg/mL Total Protein 7.4 (6.4-8.2) g/dL Albumin 3.3 L (3.4-5.0) g/dL Globulin 4.1 H (2.3-3.5) g/dL Albumin/Globulin Ratio 0.8 L (1.2-2.2) 04/24/20 Range/Units 18:44 WBC (4.5-11.0) K/uL RBC (3.30-5.50) M/uL Hgb (12.0-15.0) g/dL Hct (36.0-48.0) % MCV (80-98) fL MCH (27-31) pg MCHC (32-36) % Plt Count (150-400) K/uL Neut % (Auto) (36-66) % Lymph % (Auto) (24-44) % [place] % (Auto) (2-6) % Eos % (Auto) (2-4) % Baso % (Auto) (0-1) % Sodium (140-148) mmol/L Potassium (3.6-5.2) mmol/L Chloride (100-108) mmol/L Carbon Dioxide (21-32) mmol/L Anion Gap (5.0-14.0) mmol/L BUN (7-18) mg/dL Creatinine (0.6-1.0) mg/dL Est Cr Clr Drug Dosing mL/min Estimated GFR (MDRD) (>60) Glucose (74-106) mg/dL Lactic Acid 1.4 (0.4-2.0) mmol/L Calcium (8.5-10.1) mg/dL Total Bilirubin (0.2-1.0) mg/dL AST (15-37) U/L ALT (12-78) U/L Alkaline Phosphatase (46-116) U/L C-Reactive Protein (0.0-0.3) mg/dL NT-Pro-B Natriuret Pep (5-450) pg/mL Total Protein (6.4-8.2) g/dL Albumin (3.4-5.0) g/dL Globulin (2.3-3.5) g/dL Albumin/Globulin Ratio (1.2-2.2) Meds: Medications Generic Name Dose Route Start Last Admin Trade Name Bushra PRN Reason Stop Dose Admin Lactated Ringer's 1,000 mls @ 250 mls/hr 04/24/20 19:15 04/24/20 19:36 Ringers, Lactated IV 250 mls/hr ASDIRECTED ALEJANDRO Administration Sodium Chloride 10 ml 04/24/20 19:14 04/24/20 19:36 Saline Flush FLUSH 10 ml ASDIRECTED PRN Administration Keep Vein Open Discontinued Medications Generic Name Dose Route Start Last Admin Trade Name Bushra PRN Reason Stop Dose Admin Potassium Chloride 20 meq/ 100 mls @ 50 mls/hr 04/24/20 19:15 04/24/20 19:35 Premix IV 04/24/20 21:14 50 mls/hr ONETIME ONE Administration Ketorolac Tromethamine 30 mg 04/24/20 18:35 04/24/20 18:39 Toradol IM 04/24/20 18:36 30 mg ONETIME ONE Administration Potassium Chloride 40 meq 04/24/20 19:15 04/24/20 19:35 Klor-Con M20 PO 04/24/20 19:16 40 meq ONETIME ONE Administration Departure - Departure Time of Disposition: 21:29 Disposition: Home, Self-Care 01 Condition: Fair Clinical Impression: Microcytic anemia, Hypokalemia - Discharge Information Instructions: Hypokalemia, Anemia Referrals: Rashida Herzog PA [Primary Care Provider] - Forms: ED Department Discharge Additional Instructions: Please follow-up with your primary care for further evaluation of your low potassium and low blood call return to the emergency department worsening of symptoms Sepsis Event Note - Evaluation Sepsis Screening Result: No Definite Risk - Focused Exam Vital Signs: Vital Signs Temp Pulse Resp BP Pulse Ox 04/24/20 21:24 62 15 155/66 H 99 04/24/20 20:49 62 16 151/53 H 04/24/20 20:09 62 19 163/64 H 100 04/24/20 19:09 62 16 151/56 H 98 04/24/20 18:39 67 12 147/57 H 96 04/24/20 18:18 96.3 F L 76 18 146/53 H 100 04/24/20 18:14 96.3 F L 76 18 146/53 H 100 Date Exam was Performed: 04/24/20 Time Exam was Performed: 21:27 - My Orders Last 24 Hours: My Active Orders 04/24/20 19:14 Peripheral IV Care [RC] . DIRECTED Sodium Chloride 0.9% [Saline Flush] 10 ml FLUSH ASDIRECTED PRN Peripheral IV Insertion Adult [OM.PC] Routine 04/24/20 19:15 Lactated Ringers [Ringers, Lactated] 1,000 ml IV ASDIRECTED - Assessment/Plan Last 24 Hours: My Active Orders 04/24/20 19:14 Peripheral IV Care [RC] . DIRECTED Sodium Chloride 0.9% [Saline Flush] 10 ml FLUSH ASDIRECTED PRN Peripheral IV Insertion Adult [OM.PC] Routine 04/24/20 19:15 Lactated Ringers [Ringers, Lactated] 1,000 ml IV ASDIRECTED Plan: Assessment Acuity = acute Site and laterality = hypokalemia with microcytic anemia Etiology = hypokalemia is probably related to hydrochlorothiazide unknown etiology of microcytic anemia Manifestations = fatigue dyspnea upon exertion Location of injury = Home Lab values = hemoglobin low at 8.8 consistent microchromic anemia potassium low 2.9 consistent with hypokalemia lactic acid normal 1.4 CRP slightly elevated 0.61 proBNP normal at 216 Plan I did review lab work with her a copy was provided have asked her to follow-up with her primary care in the next 3 to 5 days for reevaluation, the hypokalemia is probably related to the hydrochlorothiazide the microchromic anemia has not been evaluated and needs to be worked up This note was dictated using [employer] voice recognition software please call with any questions on syntax or grammar.
[2020-04-24] MEDS ORDERED: Sodium Chloride 0.9% 10 ML Syringe FLUSH PRN (19:14)
[2020-04-24] MEDS ORDERED: Potassium Chloride 20 MEQ in Premix Bag 1 BAG IV ONE (19:15)
[2020-04-24] MEDS ORDERED: Potassium Chloride 20 MEQ Tab.ER PO ONE (19:15)
[2020-04-24] MEDS ORDERED: Lactated Ringers 1,000 ML IV SCH (19:15)
[2020-04-24 20:11] VITALS: PULSE 62
[2020-04-24 21:25] VITALS: BP 155/66
== END 2020-04-24 21:45 | disposition home or self-care (01) ==
LOC: JP.ED 18:00
DX: E87.6 Hypokalemia (principal); D50.9 Iron deficiency anemia, unspecified; I10 Essential (primary) hypertension; F41.9 Anxiety disorder, unspecified; E20.9 Hypoparathyroidism, unspecified; Z88.8 Allergy status to other drugs, medicaments and biological substances; Z88.1 Allergy status to other antibiotic agents; Z88.5 Allergy status to narcotic agent; Z91.041 Radiographic dye allergy status; Z88.0 Allergy status to penicillin; Z88.2 Allergy status to sulfonamides; Z79.899 Other long term (current) drug therapy; R06.02 Shortness of breath
CPT/HCPCS: 36415; 80053; 83605; 83880; 85025; 86140; 96365; 96366; 96372; 99284; A9270; J1885; J3480; J7120

== ENCOUNTER 2021-03-19 19:19 | Inpatient (IN) | payer MEDICARE ==
[2021-03-19] MEDS ORDERED: Ondansetron 4 MG/2 ML SDV IVPUSH ONE (19:29)
[2021-03-19] MEDS ORDERED: Sodium Chloride 0.9% 1,000 ML IV SCH ×4 (19:30→23:00)
--- NOTE | 2021-03-19 20:59 | EDM.PDOC ---
ED HPI GENERAL MEDICAL PROBLEM - General Chief Complaint: Genitourinary Problem Stated Complaint: MEDICAL [facility]IA [facility] Time Seen by Provider: 03/19/21 19:28 Source of Information: Reports: Patient, EMS, RN History Limitations: Reports: No Limitations - History of Present Illness INITIAL COMMENTS - FREE TEXT/NARRATIVE: chief complaint: bladder infection This is a 76 year old female presents to the ER via EMS for evaluation of symptoms. Ms. Del Rio reports has been sick for two weeks with painful urination, odor, and generalized not feeling well. The past two days has been h aving shaking chills, fever, nausea, vomiting and lack of appetite. Had a Telehealth visit- ordered Cipro 500 mg po bid, took one dose today. has not had Covid-19 exposure or vaccination Onset: Gradual Duration: Week(s): (2), Getting Worse Location: Reports: Generalized Quality: Reports: Ache, Burning, Pressure Severity: Moderate Improves with: Reports: None Worsens with: Reports: None Associated Symptoms: Reports: Fever/Chills, Headaches, Loss of Appetite, Malaise, Nausea/Vomiting, Shortness of Breath Treatments EDUCATION REVIEWER: Reports: Acetaminophen - Related Data Allergies Allergy/AdvReac Type Severity Reaction Status Date / Time amitriptyline Allergy Insomnia Verified 04/24/20 18:15 ampicillin Allergy Itching Verified 04/24/20 18:15 buspirone [From BuSpar] Allergy Other Verified 04/24/20 18:15 cephalexin Allergy Rash Verified 04/24/20 18:15 doxycycline Allergy Itching Verified 04/24/20 18:15 duloxetine [From Cymbalta] Allergy Cannot Verified 04/24/20 18:15 Remember erythromycin base Allergy Itching Verified 04/24/20 18:15 escitalopram [From Lexapro] Allergy Cannot Verified 04/24/20 18:15 Remember hydromorphone [From Dilaudid] Allergy Pain Verified 04/24/20 18:15 Iodinated Contrast Media Allergy Rash Verified 04/24/20 18:15 [Iodinated Contrast Media - Oral and] metronidazole Allergy Cannot Verified 04/24/20 18:15 Remember nortriptyline [From Pamelor] Allergy Insomnia Verified 04/24/20 18:15 paroxetine [From Paxil] Allergy Headache Verified 04/24/20 18:15 Penicillins Allergy Itching Verified 06/02/20 18:15 spironolactone Allergy Cannot Verified 04/24/20 18:15 Remember Sulfa (Sulfonamide Allergy Itching Verified 04/24/20 18:15 Antibiotics) vancomycin Allergy Rash Verified 04/24/20 18:15 levofloxacin [From Levaquin] AdvReac Nausea Verified 04/24/20 18:15 Home Meds: Home Meds Cholecalciferol (Vitamin D3) [Vitamin D3] 2,000 unit PO BEDTIME 10/07/16 [History] Levothyroxine 137 mcg PO ACBREAKFAST 10/07/16 [History] Liothyronine [Cytomel] 15 mcg PO DAILY 10/07/16 [History] Magnesium 800 mg PO BEDTIME 10/07/16 [History] traZODone 100 mg PO BEDTIME 11/18/16 [History] Diltiazem [Cardizem CD] 180 mg PO BID 12/24/16 [History] Metoprolol Succinate 50 mg PO DAILY 12/24/16 [History] Calcium Citrate 4 tab PO DAILY 07/23/18 [History] Potassium Chloride [Klor-Con M20] 10 meq PO DAILY 07/23/18 [History] Sertraline [Zoloft] 75 mg PO DAILY 07/23/18 [History] Warfarin Sodium [Coumadin] 5 mg PO ASDIRECTED 04/24/20 [History] hydroCHLOROthiazide [Hydrochlorothiazide] 25 mg PO DAILY 04/24/20 [History] Gabapentin [Neurontin] 100 mg PO DAILY 03/19/21 [History] Metoprolol Succinate [Toprol XL] 25 mg PO BEDTIME 03/19/21 [History] Past Medical History HEENT History: Reports: Impaired Vision Cardiovascular History: Reports: Afib, High Cholesterol, Hypertension Gastrointestinal History: Reports: GERD Genitourinary History: Reports: Other (See Below) Other Genitourinary History: was on an antibiotic intermediate kidney infection LAW WRITER History: Reports: Musculoskeletal History: Reports: Fracture Other Musculoskeletal History: Collar bone fx Psychiatric History: Reports: Anxiety, Depression Endocrine/Metabolic History: Reports: Hypoparathyroidism Other Endocrine/Metabolic History: pseudo Hematologic History: Reports: Anemia, B12 Deficiency, Iron Deficiency Immunologic History: Reports: Other (See Below) Other Immunologic History: hepatitis Dermatologic History: Reports: Other (See Below) Other Dermatologic History: breast yeast, has chronic open areas on arms and face - Infectious Disease History Infectious Disease History: Reports: Chicken Pox, Measles, Mumps Other Infectious Disease History: hepatitis - Past Surgical History Head Surgeries/Procedures: Reports: None HEENT Surgical History: Reports: Naso-Sinus Surgery, Tonsillectomy Cardiovascular Surgical History: Reports: Cardiac Ablation GI Surgical History: Reports: Appendectomy, Cholecystectomy Female Surgical History: Reports: Breast Biopsy, Hysterectomy Endocrine Surgical History: Reports: None Musculoskeletal Surgical History: Reports: Knee Replacement Dermatological Surgical History: Reports: None Social & Family History - Family History Family Medical History: No Pertinent Family History - Tobacco Use Tobacco Use Status *Q: Never Tobacco User - Caffeine Use Caffeine Use: Reports: Coffee - Recreational Drug Use Recreational Drug Use: No - Living Situation & Occupation Living situation: Reports: Alone Occupation: Retired ED ROS GENERAL - Review of Systems Review Of Systems: See Below Constitutional: Reports: Fever, Chills, Malaise, Weakness, Decreased Appetite HEENT: Reports: Glasses Respiratory: Reports: Shortness of Breath Cardiovascular: Reports: No Symptoms Endocrine: Reports: No Symptoms GI/Abdominal: Reports: No Symptoms : Reports: Discharge, Dysuria, Frequency, Pain, Urgency Musculoskeletal: Reports: Back Pain Skin: Reports: No Symptoms Neurological: Reports: Headache, Weakness Psychiatric: Reports: No Symptoms Hematologic/Lymphatic: Reports: No Symptoms Immunologic: Reports: No Symptoms ED EXAM, GI/ABD - Physical Exam Exam: See Below Exam Limited By: No Limitations General Appearance: Alert, WD/WN, Anxious, Mild Distress (face is flushed and sweating. skin hot ), Obese Eyes: Bilateral: Normal Appearance Ears: Normal External Exam, Normal Canal, Hearing Grossly Normal, Normal TMs Nose: Normal Inspection, Normal Mucosa, No Blood Throat/Mouth: Normal Inspection, Normal Lips, Normal Teeth, Normal Gums, Normal Oropharynx, Normal Voice, No Airway Compromise Head: Atraumatic, Normocephalic Neck: Normal Inspection, Supple, Non-Tender, Full Range of Motion Respiratory/Chest: No Respiratory Distress, Lungs Clear, Normal Breath Sounds, No Accessory Muscle Use, Chest Non-Tender Cardiovascular: Normal Peripheral Pulses, Regular Rate, Rhythm GI/Abdominal Exam: Normal Bowel Sounds, Soft, Non-Tender, No Organomegaly, No Distention, No Abnormal Bruit, No Mass, Pelvis Stable (Female) Exam: Deferred Rectal (Female) Exam: Deferred Back Exam: Normal Inspection, Full Range of Motion Extremities: Normal Inspection, Normal Range of Motion, Non-Tender, Normal Capillary Refill, No Pedal Edema Neurological: Alert, Oriented, CN II-XII Intact, Normal Cognition, Normal Gait, Normal Reflexes, No Motor/Sensory Deficits Psychiatric: Normal Affect, Normal Mood Skin Exam: Warm, Dry, Intact, Normal Color, No Rash Lymphatic: No Adenopathy Course - Vital Signs Last Recorded V/S: Last Vital Signs Temp 98.2 F 03/19/21 20:03 Pulse 67 03/19/21 20:03 Resp 18 03/19/21 20:03 BP 124/46 L 03/19/21 20:03 Pulse Ox 98 03/19/21 20:03 - Orders/Labs/Meds Orders: Active Orders 24 hr Category Date Time Status Cardiac Monitoring [RC] .As Directed Care 03/19/21 19:31 Active CULTURE BLOOD [BC] Urgent Lab 03/19/21 19:45 Received CULTURE BLOOD [BC] Urgent Lab 03/19/21 19:53 Received UA W/MICROSCOPIC [URIN] Urgent Lab 03/19/21 19:31 Ordered Sodium Chloride 0.9% [Normal Saline] 1,000 ml Med 03/19/21 19:30 Active IV ASDIRECTED Blood Culture x2 Reflex Set [OM.PC] Urgent Oth 03/19/21 19:31 Ordered Medication Orders Sodium Chloride (Normal Saline) 1,000 mls @ 999 mls/hr IV ASDIRECTED ALEJANDRO Last Admin: 03/19/21 20:50 Dose: 999 mls/hr Documented by: JIM Labs: Laboratory Tests 03/19/21 03/19/21 03/19/21 Range/Units 19:45 19:45 19:45 WBC 14.3 H (4.5-11.0) K/uL RBC 4.52 (3.30-5.50) M/uL Hgb 10.4 L (12.0-15.0) g/dL Hct 33.9 L (36.0-48.0) % MCV 75 L (80-98) fL MCH 23 L (27-31) pg MCHC 31 L (32-36) % Plt Count 278 (150-400) K/uL Neut % (Auto) 86 H (36-66) % Lymph % (Auto) 4 L (24-44) % [place] % (Auto) 10 H (2-6) % Eos % (Auto) 0 L (2-4) % Baso % (Auto) 0 (0-1) % PT (9.5-12.0) sec INR (0.80-1.20) Sodium 138 L (140-148) mmol/L Potassium 3.5 L (3.6-5.2) mmol/L Chloride 97 L (100-108) mmol/L Carbon Dioxide 23 (21-32) mmol/L Anion Gap 21.5 H (5.0-14.0) mmol/L BUN 18 (7-18) mg/dL Creatinine 1.2 H (0.6-1.0) mg/dL Est Cr Clr Drug Dosing TNP Estimated GFR (MDRD) 43 L (>60) Glucose 95 (74-106) mg/dL Lactic Acid (0.4-2.0) mmol/L Calcium 8.7 (8.5-10.1) mg/dL Total Bilirubin 0.7 D (0.2-1.0) mg/dL AST 23 (15-37) U/L ALT 23 (12-78) U/L Alkaline Phosphatase 107 (46-116) U/L Total Protein 7.3 (6.4-8.2) g/dL Albumin 3.2 L (3.4-5.0) g/dL Globulin 4.1 H (2.3-3.5) g/dL Albumin/Globulin Ratio 0.8 L (1.2-2.2) Amylase 30 (25-115) U/L Lipase 70 L (73-393) U/L Procalcitonin ng/mL 03/19/21 03/19/21 03/19/21 Range/Units 19:45 19:45 19:45 WBC (4.5-11.0) K/uL RBC (3.30-5.50) M/uL Hgb (12.0-15.0) g/dL Hct (36.0-48.0) % MCV (80-98) fL MCH (27-31) pg MCHC (32-36) % Plt Count (150-400) K/uL Neut % (Auto) (36-66) % Lymph % (Auto) (24-44) % [place] % (Auto) (2-6) % Eos % (Auto) (2-4) % Baso % (Auto) (0-1) % PT 16.7 H (9.5-12.0) sec INR 1.55 H (0.80-1.20) Sodium (140-148) mmol/L Potassium (3.6-5.2) mmol/L Chloride (100-108) mmol/L Carbon Dioxide (21-32) mmol/L Anion Gap (5.0-14.0) mmol/L BUN (7-18) mg/dL Creatinine (0.6-1.0) mg/dL Est Cr Clr Drug Dosing Estimated GFR (MDRD) (>60) Glucose (74-106) mg/dL Lactic Acid 3.0 H (0.4-2.0) mmol/L Calcium (8.5-10.1) mg/dL Total Bilirubin (0.2-1.0) mg/dL AST (15-37) U/L ALT (12-78) U/L Alkaline Phosphatase (46-116) U/L Total Protein (6.4-8.2) g/dL Albumin (3.4-5.0) g/dL Globulin (2.3-3.5) g/dL Albumin/Globulin Ratio (1.2-2.2) Amylase (25-115) U/L Lipase (73-393) U/L Procalcitonin 8.57 H* ng/mL Meds: Medications Generic Name Dose Route Start Last Admin Trade Name Freq PRN Reason Stop Dose Admin Sodium Chloride 1,000 mls @ 999 mls/hr 03/19/21 19:30 03/19/21 20:50 Normal Saline IV 999 mls/hr ASDIRECTED ALEJANDRO Administration Discontinued Medications Generic Name Dose Route Start Last Admin Trade Name Freq PRN Reason Stop Dose Admin Ondansetron HCl 4 mg 03/19/21 19:29 03/19/21 20:53 Ondansetron 4 Mg/2 Ml Sdv IVPUSH 03/19/21 19:30 4 mg ONETIME ONE Administration - Re-Assessments/Exams Free Text/Narrative Re-Assessment/Exam: 03/19/21 21:36 labs abnormal -WBC 14.3, Hgb 10.4, hct 33.9, plt 278, chemistries abnormal, plt 278 Procalcitonin 8.57 Lactic Acid 3.0 vital signs stable- 98.2-82-18 B/P 106/43 Oxygen sat 94% plan to admit- complicated UTI with early sepsis Pt agrees with plan of care 03/19/21 21:45 consulted with Telepharmacy- will trial IV Cipro 400mg every 12 hours, if fevers continue add IV Meropenem 500 mg every 12 hours Departure - Departure Time of Disposition: 20:58 Disposition: Admitted As Inpatient 64 Condition: Good Clinical Impression: UTI, Urinary tract infectious disease - Discharge Information *PRESCRIPTION DRUG MONITORING PROGRAM REVIEWED*: Not Applicable *COPY OF PRESCRIPTION DRUG MONITORING REPORT IN PATIENT JACQUES: Not Applicable Sepsis Event Note (ED) - Focused Exam Vital Signs: Vital Signs Temp Pulse Resp BP Pulse Ox 03/19/21 20:03 98.2 F 67 18 124/46 L 98 - Problem List & Annotations (1) UTI, Urinary tract infectious disease SNOMED Code(s): 42093865 Code(s): N39.0 - URINARY TRACT INFECTION, SITE NOT SPECIFIED Status: Acute Priority: High Current Visit: Yes - Problem List Review Problem List Initiated/Reviewed/Updated: Yes - My Orders Last 24 Hours: My Active Orders 03/19/21 19:30 Sodium Chloride 0.9% [Normal Saline] 1,000 ml IV ASDIRECTED 03/19/21 19:31 Cardiac Monitoring [RC] .As Directed UA W/MICROSCOPIC [URIN] Urgent Blood Culture x2 Reflex Set [OM.PC] Urgent 03/19/21 19:45 CULTURE BLOOD [BC] Urgent 03/19/21 19:53 CULTURE BLOOD [BC] Urgent - Assessment/Plan Last 24 Hours: My Active Orders 03/19/21 19:30 Sodium Chloride 0.9% [Normal Saline] 1,000 ml IV ASDIRECTED 03/19/21 19:31 Cardiac Monitoring [RC] .As Directed UA W/MICROSCOPIC [URIN] Urgent Blood Culture x2 Reflex Set [OM.PC] Urgent 03/19/21 19:45 CULTURE BLOOD [BC] Urgent 03/19/21 19:53 CULTURE BLOOD [BC] Urgent Plan: plan: admit to hospital for further care and treatment
--- NOTE | 2021-03-19 21:54 | PCM.HP.2 ---
H&P History of Present Illness - General Date of Service: 03/19/21 Admit Problem/Dx: Admission Diagnosis/Problem Admission Diagnosis/Problem Urinary tract infection Source of Information: Patient, EMS, RN History Limitations: Reports: No Limitations - History of Present Illness Initial Comments - Free Text/Narative: chief complaint: bladder infection This is a 76 year old female presents to the ER via EMS for evaluation of symptoms. Ms. Del Rio reports has been sick for two weeks with painful urination, odor, and generalized not feeling well. The past two days has been having shaking chills, fever, nausea, vomiting and lack of appetite. Had a Telehealth visit- ordered Cipro 500 mg po bid, took one dose today. has not had Covid-19 exposure or vaccination Onset: Gradual for two weeks. Onset of Symptoms: Reports: Gradual Duration of Symptoms: Reports: Week(s): (two) Location: Reports: Generalized Quality: Reports: Ache, Burning, Pressure Severity: Moderate Improves with: Reports: None Worsens with: Reports: None Associated Symptoms: Reports: Fever/Chills, Headaches, Loss of Appetite, Malaise, Nausea/Vomiting, Shortness of Breath - Related Data Allergies/Adverse Reactions: Allergies Allergy/AdvReac Type Severity Reaction Status Date / Time amitriptyline Allergy Insomnia Verified 04/24/20 18:15 ampicillin Allergy Itching Verified 04/24/20 18:15 buspirone [From BuSpar] Allergy Other Verified 04/24/20 18:15 cephalexin Allergy Rash Verified 04/24/20 18:15 doxycycline Allergy Itching Verified 04/24/20 18:15 duloxetine [From Cymbalta] Allergy Cannot Verified 04/24/20 18:15 Remember erythromycin base Allergy Itching Verified 04/24/20 18:15 escitalopram [From Lexapro] Allergy Cannot Verified 04/24/20 18:15 Remember hydromorphone [From Dilaudid] Allergy Pain Verified 04/24/20 18:15 Iodinated Contrast Media Allergy Rash Verified 04/24/20 18:15 [Iodinated Contrast Media - Oral and] metronidazole Allergy Cannot Verified 04/24/20 18:15 Remember nortriptyline [From Pamelor] Allergy Insomnia Verified 04/24/20 18:15 paroxetine [From Paxil] Allergy Headache Verified 04/24/20 18:15 Penicillins Allergy Itching Verified 04/24/20 18:15 spironolactone Allergy Cannot Verified 04/24/20 18:15 Remember Sulfa (Sulfonamide Allergy Itching Verified 04/24/20 18:15 Antibiotics) vancomycin Allergy Rash Verified 04/24/20 18:15 levofloxacin [From Levaquin] AdvReac Nausea Verified 04/24/20 18:15 Home Medications: Home Meds Cholecalciferol (Vitamin D3) [Vitamin D3] 2,000 unit PO BEDTIME 10/07/16 [History] Levothyroxine 137 mcg PO ACBREAKFAST 10/07/16 [History] Liothyronine [Cytomel] 15 mcg PO DAILY 10/07/16 [History] Magnesium 800 mg PO BEDTIME 10/07/16 [History] traZODone 100 mg PO BEDTIME 11/18/16 [History] Diltiazem [Cardizem CD] 180 mg PO BID 12/24/16 [History] Metoprolol Succinate 50 mg PO DAILY 12/24/16 [History] Calcium Citrate 4 tab PO DAILY 07/23/18 [History] Potassium Chloride [Klor-Con M20] 10 meq PO DAILY 07/23/18 [History] Sertraline [Zoloft] 75 mg PO DAILY 07/23/18 [History] Warfarin Sodium [Coumadin] 5 mg PO ASDIRECTED 04/24/20 [History] hydroCHLOROthiazide [Hydrochlorothiazide] 25 mg PO DAILY 04/24/20 [History] Gabapentin [Neurontin] 100 mg PO DAILY 03/19/21 [History] Metoprolol Succinate [Toprol XL] 25 mg PO BEDTIME 03/19/21 [History] Past Medical History HEENT History: Reports: Impaired Vision Cardiovascular History: Reports: Afib, High Cholesterol, Hypertension Gastrointestinal History: Reports: GERD Genitourinary History: Reports: Other (See Below) Other Genitourinary History: was on an antibiotic group home kidney infection 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: Musculoskeletal History: Reports: Fracture Other Musculoskeletal History: Collar bone fx Psychiatric History: Reports: Anxiety, Depression Endocrine/Metabolic History: Reports: Hypoparathyroidism Other Endocrine/Metabolic History: pseudo Hematologic History: Reports: Anemia, B12 Deficiency, Iron Deficiency Immunologic History: Reports: Other (See Below) Other Immunologic History: hepatitis Dermatologic History: Reports: Other (See Below) Other Dermatologic History: breast yeast, has chronic open areas on arms and face - Infectious Disease History Infectious Disease History: Reports: Chicken Pox, Measles, Mumps Other Infectious Disease History: hepatitis - Past Surgical History Head Surgeries/Procedures: Reports: None HEENT Surgical History: Reports: Naso-Sinus Surgery, Tonsillectomy Cardiovascular Surgical History: Reports: Cardiac Ablation GI Surgical History: Reports: Appendectomy, Cholecystectomy Female Surgical History: Reports: Breast Biopsy, Hysterectomy Endocrine Surgical History: Reports: None Musculoskeletal Surgical History: Reports: Knee Replacement Dermatological Surgical History: Reports: None Social & Family History - Family History Family Medical History: No Pertinent Family History - Tobacco Use Tobacco Use Status *Q: Never Tobacco User - Caffeine Use Caffeine Use: Reports: Coffee - Recreational Drug Use Recreational Drug Use: No - Living Situation & Occupation Living situation: Reports: Alone Occupation: Retired H&P Review of Systems - Review of Systems: Review Of Systems: See Below General: Reports: Fever, Chills, Malaise, Weakness, Diaphoresis, Decreased Appetite HEENT: Reports: Glasses, Other (upper dentures) Pulmonary: Reports: Shortness of Breath Cardiovascular: Reports: No Symptoms, Other (history of chronic atrial fib.) Gastrointestinal: Reports: No Symptoms Genitourinary: Reports: Dysuria, Frequency, Burning, Pain, Urgency Musculoskeletal: Reports: Back Pain Skin: Reports: No Symptoms Psychiatric: Reports: No Symptoms Neurological: Reports: Headache Hematologic/Lymphatic: Reports: Easy Bleeding (Coumadin therapy for A-Fib) Immunologic: Reports: No Symptoms Exam - Exam Exam: See Below - Vital Signs Vital Signs: Last Vital Signs Temp 98.2 F 03/19/21 21:38 Pulse 82 03/19/21 21:38 Resp 18 03/19/21 21:38 BP 106/43 L 03/19/21 21:38 Pulse Ox 94 L 03/19/21 21:38 Weight: 240 lb - Exam Quality Assessment: DVT Prophylaxis General: Alert, Oriented, Cooperative, Mild Distress HEENT: PERRLA, Conjunctiva Clear, EACs Clear, EOMI, Hearing Intact, Mucosa Moist & [place], Nares Patent, Normal Nasal Septum, Posterior Pharynx Clear, Pupils Equal, Pupils Reactive, TMs Clear, Glasses Neck: Supple, Trachea Midline, Full Range of Motion Lungs: Clear to Auscultation, Normal Respiratory Effort Cardiovascular: Regular Rate, Regular Rhythm GI/Abdominal Exam: Normal Bowel Sounds, Soft, Non-Tender, No Organomegaly, No Distention, No Abnormal Bruit, No Mass, Pelvis Stable (Female) Exam: Deferred Rectal (Female) Exam: Deferred Back Exam: Normal Inspection, Full Range of Motion, NT Extremities: Normal Inspection, Normal Range of Motion, Non-Tender, No Pedal Edema, Normal Capillary Refill Peripheral Pulses: 2+: Radial (L), Radial (R), Dorsalis Pedis (L), Dorsalis Pedis (R) Skin: Warm, Dry, Intact Neurological: Reflexes Equal Bilateral, Strength Equal Bilateral, Normal Speech, Normal Tone Neuro Extensive - Mental Status: Alert, Oriented x3, Normal Mood/Affect, Normal Cognition Neuro Extensive - Motor, Sensory, Reflexes: CN II-XII Intact, Normal Gait, No rmal Reflexes Psychiatric: Alert, Normal Affect, Normal Mood - Patient Data Lab Results Last 24 hrs: Laboratory Results - last 24 hr 03/19/21 03/19/21 03/19/21 Range/Units 19:45 19:45 19:45 WBC 14.3 H (4.5-11.0) K/uL RBC 4.52 (3.30-5.50) M/uL Hgb 10.4 L (12.0-15.0) g/dL Hct 33.9 L (36.0-48.0) % MCV 75 L (80-98) fL MCH 23 L (27-31) pg MCHC 31 L (32-36) % Plt Count 278 (150-400) K/uL Neut % (Auto) 86 H (36-66) % Lymph % (Auto) 4 L (24-44) % [place] % (Auto) 10 H (2-6) % Eos % (Auto) 0 L (2-4) % Baso % (Auto) 0 (0-1) % PT (9.5-12.0) sec INR (0.80-1.20) Sodium 138 L (140-148) mmol/L Potassium 3.5 L (3.6-5.2) mmol/L Chloride 97 L (100-108) mmol/L Carbon Dioxide 23 (21-32) mmol/L Anion Gap 21.5 H (5.0-14.0) mmol/L BUN 18 (7-18) mg/dL Creatinine 1.2 H (0.6-1.0) mg/dL Est Cr Clr Drug Dosing TNP Estimated GFR (MDRD) 43 L (>60) Glucose 95 (74-106) mg/dL Lactic Acid (0.4-2.0) mmol/L Calcium 8.7 (8.5-10.1) mg/dL Total Bilirubin 0.7 D (0.2-1.0) mg/dL AST 23 (15-37) U/L ALT 23 (12-78) U/L Alkaline Phosphatase 107 (46-116) U/L Total Protein 7.3 (6.4-8.2) g/dL Albumin 3.2 L (3.4-5.0) g/dL Globulin 4.1 H (2.3-3.5) g/dL Albumin/Globulin Ratio 0.8 L (1.2-2.2) Amylase 30 (25-115) U/L Lipase 70 L (73-393) U/L Procalcitonin ng/mL 03/19/21 03/19/21 03/19/21 Range/Units 19:45 19:45 19:45 WBC (4.5-11.0) K/uL RBC (3.30-5.50) M/uL Hgb (12.0-15.0) g/dL Hct (36.0-48.0) % MCV (80-98) fL MCH (27-31) pg MCHC (32-36) % Plt Count (150-400) K/uL Neut % (Auto) (36-66) % Lymph % (Auto) (24-44) % [place] % (Auto) (2-6) % Eos % (Auto) (2-4) % Baso % (Auto) (0-1) % PT 16.7 H (9.5-12.0) sec INR 1.55 H (0.80-1.20) Sodium (140-148) mmol/L Potassium (3.6-5.2) mmol/L Chloride (100-108) mmol/L Carbon Dioxide (21-32) mmol/L Anion Gap (5.0-14.0) mmol/L BUN (7-18) mg/dL Creatinine (0.6-1.0) mg/dL Est Cr Clr Drug Dosing Estimated GFR (MDRD) (>60) Glucose (74-106) mg/dL Lactic Acid 3.0 H (0.4-2.0) mmol/L Calcium (8.5-10.1) mg/dL Total Bilirubin (0.2-1.0) mg/dL AST (15-37) U/L ALT (12-78) U/L Alkaline Phosphatase (46-116) U/L Total Protein (6.4-8.2) g/dL Albumin (3.4-5.0) g/dL Globulin (2.3-3.5) g/dL Albumin/Globulin Ratio (1.2-2.2) Amylase (25-115) U/L Lipase (73-393) U/L Procalcitonin 8.57 H* ng/mL Result Diagrams: 03/19/21 19:45 03/19/21 19:45 Sepsis Event Note - Evaluation Sepsis Screening Result: No Definite Risk - Focused Exam Vital Signs: Vital Signs Temp Pulse Resp BP Pulse Ox 03/19/21 21:38 98.2 F 82 18 106/43 L 94 L 03/19/21 20:03 98.2 F 67 18 124/46 L 98 - Problem List (1) UTI, Urinary tract infectious disease SNOMED Code(s): 62425788 ICD Code: N39.0 - URINARY TRACT INFECTION, SITE NOT SPECIFIED Status: Acute Priority: High Current Visit: Yes (2) Atrial fibrillation and flutter SNOMED Code(s): 483583856 ICD Code: I48.91 - UNSPECIFIED ATRIAL FIBRILLATION; I48.92 - UNSPECIFIED ATRIAL FLUTTER Status: Acute Current Visit: Yes (3) Diabetes mellitus type 2 in obese SNOMED Code(s): 87131263 ICD Code: E11.69 - TYPE 2 DIABETES MELLITUS WITH OTHER SPECIFIED COMPLICATION; E66.9 - OBESITY, UNSPECIFIED Status: Acute Current Visit: Yes (4) Generalized anxiety disorder SNOMED Code(s): 95502371 ICD Code: F41.1 - GENERALIZED ANXIETY DISORDER Status: Chronic Current Visit: No Problem List Initiated/Reviewed/Updated: Yes Orders Last 24hrs: Active Orders 24 hr Category Date Time Status Patient Status Manage Transfer [TRANSFER] Routine ADT 03/19/21 21:00 Active Cardiac Monitoring [RC] .As Directed Care 03/19/21 19:31 Active COVID-19/FLU A+B/RSV [MOLEC] Stat Lab 03/19/21 21:22 Ordered CULTURE BLOOD [BC] Urgent Lab 03/19/21 19:45 Received CULTURE BLOOD [BC] Urgent Lab 03/19/21 19:53 Received UA W/MICROSCOPIC [URIN] Urgent Lab 03/19/21 19:31 Ordered Sodium Chloride 0.9% [Normal Saline] 1,000 ml Med 03/19/21 19:30 Active IV ASDIRECTED Blood Culture x2 Reflex Set [OM.PC] Urgent Oth 03/19/21 19:31 Ordered Isolation [COMM] Stat Oth 03/19/21 21:22 Ordered Resuscitation Status Routine Resus Stat 03/19/21 21:08 Ordered Medication Orders Sodium Chloride (Normal Saline) 1,000 mls @ 999 mls/hr IV ASDIRECTED ALEJANDRO Last Admin: 03/19/21 20:50 Dose: 999 mls/hr Documented by: JIM Assessment/Plan Comment:: ASSESSMENT AND PLAN URINARY TRACT INFECTION WITH EARLY SEPSIS- 2 week history of bladder symptoms with worsen symptoms for the past two days. Fever, chills, back pain, nausea, vomiting,lack of appetitie. She had a Telehealth visit and had take one Cipro 500 mg po. Called the Ambulance this evening because she could not get out of bed due to weakness, fever and chills. labs Covid 19 pending, blood cultures X2 pending, Procalcitonin 8.57, lactic acid 3.0, CBC wbc 14.3, hgb 10.4, hct 33.9, plt 278 Chemistries Na+ 138, K+ 3.5, cl 97, anion gap 21.5, bun 18, cr 1.2, glucose 95, co2 23. -IV Cipro 400 mg every 12 hours -consulted with Telepharmacy due to multi allergies- if not improved with Cipro can add IV Meropenem 500 mg every 12 hours. -IV Normal Saline 2 liters then 125 ml/hr -Tylenol for pain or fever. -telemetry tonight -Isolation -Urinalysis pending -blood cultures x2 pending -morning labs ordered CBC, BMP, lactic acid repeat at 0100 TYPE 2 DIABETES MELLITUS- Mrs. Del Rio reports diabetes is diet controlled, does not take medications for diabetes. -consistent carb diet -4 times daily glucometers A-fib -Coumadin as directed -daily INR, PT, INR Generalized anxiety disorder -continue outpatient medication MAINTENANCE ISSUES -DVT prophylaxis- Coumadin daily -GI prophylaxis - IV Protonix 40 mg daily -Jackson catheter; not indicated -Nutrition; consistent carbohydrate diet -Nicotine dependence; not required CODE STATUS- FULL ADMISSION STATUS-patient will be admitted to inpatient status, expect at least a 2 night hospital stay for evaluation and management of problems as outlined above. At the time of this admission I do not reasonably expected evaluation and management of this problem will require more than a 96 hour hospital stay. DISPOSITION-anticipate discharge to home after the hospital stay. PRIMARY CARE PROVIDER- Dr. Nicole Herzog, [place], [place]. HOSPITALIST - Dr. Andre Renteria - Mortality Measure Prognosis:: good - Mortality Measure Prognosis:: Good
[2021-03-19] MEDS ORDERED: Morphine 2 MG/ML SYRINGE IVPUSH PRN (21:57)
[2021-03-19] MEDS ORDERED: oxyCODONE 5 MG Tab PO PRN (21:57)
[2021-03-19] MEDS ORDERED: Ondansetron 4 MG Tab.DIS PO PRN (21:57)
[2021-03-19] MEDS ORDERED: Acetaminophen 325 MG Tab PO PRN (21:57)
[2021-03-19] MEDS ORDERED: Albuterol 0.083% 2.5 MG/3 ML Neb Soln NEB PRN (21:57)
[2021-03-19] MEDS ORDERED: Warfarin 5 MG Tab PO SCH (21:57)
[2021-03-19] MEDS ORDERED: Docusate Sodium 100 MG Cap PO PRN (21:57)
[2021-03-19] MEDS ORDERED: Bisacodyl 5 MG Tab PO PRN (21:57)
[2021-03-19] MEDS ORDERED: Albuterol/Ipratropium 3.0-0.5 MG/3 ML Neb Soln NEB PRN (21:57)
[2021-03-19] MEDS: Magnesium Oxide 400 MG Tab PO SCH (23:07)
[2021-03-19] MEDS: Diltiazem 180 MG Cap.CD PO SCH (23:11)
[2021-03-19 23:43] LABS: CORONAVIRUS COVID-19 NAA NEGATIVE (NEGATIVE)
[2021-03-20] MEDS: Ciprofloxacin in D5W 400 MG in Premix Bag 1 BAG IV SCH ×4 (01:10→13:10)
[2021-03-20] MEDS ORDERED: Levothyroxine 112 MCG Tab PO SCH (07:30)
[2021-03-20] MEDS ORDERED: Sodium Chloride 0.9% 1,000 ML IV SCH (07:30)
--- NOTE | 2021-03-20 07:30 | PCM.SN.2 ---
- Free Text/Narrative Note: START OF DOCTOR DERREK PROGRESS NOTE Subjective: Overnight the patient admits to rigors. She denies fever, nausea, vomiting, cough, wheeze, abdominal pain, dyspnea, or any other constitutional complaints. She states that she is feeling much better compared to how she felt upon hospitalization. I explained to the patient her current medical condition and plan of care and I have answered all of her questions Objective: General: -Alert -No acute distress -No dyspnea -No tachypnea -Obese Heart: -Regular rate -iRegular rhythm -No murmurs -No gallops -No rubs Lungs: -No wheeze -No rhonchi -No rales Abdomen: -Normal bowel sounds in all four quadrants -No rebound -No guarding -No tenderness Extremities: -2/4 pulse in all four extremities -No clubbing -No cyanosis -No edema Additional Details / Additional Findings / Exceptions / Miscellaneous: Pertinent Laboratory Results / Pertinent Radiology Results / Pertinent Diagnostic Results / Pertinent Vital Signs: Vital signs stable, white blood count 13.1, hemoglobin 8.8, MCV 76, potassium 3.2 Assessment / Plan: Urinary tract infection. Ciprofloxacin 400 mg IV every 12 hours Hyperlipidemia Atrial fibrillation, status post cardiac ablation, status post cardioversion. Diltiazem 180 mg p.o. daily plus Toprol-XL 50 mg p.o. daily and 25 mg p.o. nightly. Coumadin p.o. to be dosed on a daily basis while checking daily PT/INR Acute renal insufficiency. Will monitor creatinine level intermittently. IV normal saline 50 mils per hour. If we see no improvement/normalization I will discontinue hydrochlorothiazide 25 mg p.o. daily Microcytic anemia with history of iron deficiency. Will monitor hemoglobin level intermittently. Check serum ferritin, iron panel, fecal occult blood Obesity. The patient will be counseled regarding lifestyle modification Hypokalemia. Monitor potassium levels intermittently and supplement as necessary Hypothyroidism. Synthroid 137 mcg p.o. daily plus Cytomel 15 mcg p.o. daily. Check TSH and free T4 Depression. Zoloft 75 mg p.o. daily plus trazodone 100 mg p.o. nightly Hypertension. Diltiazem 180 mg p.o. twice daily plus hydrochlorothiazide 25 mg p.o. daily plus K-Dur 10 M EQ p.o. daily plus Toprol-XL 50 mg p.o. daily and 25 mg p.o. nightly Neuropathy. Gabapentin 100 mg p.o. daily Insomnia GERD. Protonix 40 mg IV daily Anxiety History of vitamin B12 deficiency History of hepatitisnot otherwise specified. Outpatient follow-up with her primary care physician or provider Grade 2 diastolic dysfunction Moderate mitral regurgitation Degenerative disc disease DVT prophylaxis. Coumadin p.o. to be dosed on a daily basis while checking daily PT/INR Disposition: Anticipate discharge on the morning of March 21, 2021 END OF DOCTOR EMAMIS PROGRESS NOTE
[2021-03-20] MEDS ORDERED: Gabapentin 100 MG Cap PO SCH ×2 (09:00→21:00)
[2021-03-20] MEDS ORDERED: Calcium Carbonate/Vitamin D3 1500 MG-400 Units Tab PO SCH ×2 (09:00→21:00)
[2021-03-20] MEDS ORDERED: Warfarin 2.5 MG Tab PO ONE (09:00)
[2021-03-20] MEDS ORDERED: Pantoprazole 40 MG Vial IV SCH (09:00)
[2021-03-20] MEDS: Potassium Chloride 20 MEQ Tab.ER PO SCH ×2 (09:28→11:08)
[2021-03-20] MEDS: Potassium Chloride 10 MEQ Cap.ER PO SCH (09:28)
[2021-03-20] MEDS: Diltiazem 180 MG Cap.CD PO SCH ×2 (09:30→20:04)
[2021-03-20] MEDS: Hydrochlorothiazide 25 MG Tab PO SCH (09:30)
[2021-03-20] MEDS: Sertraline 25 MG Tab PO SCH (09:33)
[2021-03-20] MEDS: Liothyronine 5 MCG Tab PO SCH (09:39)
[2021-03-20] MEDS: Metoprolol Succinate 50 MG Tab.ER PO SCH (09:40)
[2021-03-20] MEDS: Ferrous Sulfate 325 MG Tab PO SCH ×2 (11:07→17:23)
[2021-03-20] MEDS: Ascorbic Acid 500 MG Tab PO SCH (11:08)
[2021-03-20] MEDS ORDERED: Warfarin 5 MG Tab PO SCH (13:00)
[2021-03-20] MEDS: Magnesium Oxide 400 MG Tab PO SCH (20:05)
[2021-03-20] MEDS ORDERED: Cholecalciferol (Vitamin D3) 25 MCG Tab PO SCH (21:00)
[2021-03-20] MEDS ORDERED: traZODone 50 MG Tab PO SCH (21:00)
[2021-03-20] MEDS ORDERED: Metoprolol Succinate 25 MG Tab.ER PO SCH (21:00)
[2021-03-21] MEDS: Ciprofloxacin in D5W 400 MG in Premix Bag 1 BAG IV SCH ×2 (00:59)
--- NOTE | 2021-03-21 07:17 | PCM.SN.2 ---
- Free Text/Narrative Note: START OF DOCTOR EMAMIS DISCHARGE SUMMARY Date of Admission: March 19, 2021 Date of Discharge: 7:15 AM on March 21, 2021 Primary Diagnosis: Urinary tract infection Secondary Diagnosis: Hyperlipidemia Atrial fibrillation, status post cardiac ablation, status post cardioversion Acute renal insufficiency Microcytic anemia/iron deficiency anemia Obesity Hypokalemia Hypothyroidism Depression Hypertension Neuropathy Insomnia GERD Anxiety History of vitamin B12 deficiency History of hepatitisnot otherwise specified Grade 2 diastolic dysfunction Moderate mitral regurgitation Degenerative disc disease Consultations: None Disposition: The patient will be discharged home at her baseline state of health in good condition The patient is advised follow-up with her primary care physician or provider 3 days post discharge The patient will need to check a PT/INR 3 days post discharge for diagnosis of anticoagulation for history of atrial fibrillation Discharge Medications: Coumadin 5 mg p.o. as directed Synthroid 112 mcg p.o. daily Ciprofloxacin 500 mg p.o. twice daily. Quantity 8. 0 refills Trazodone 100 mg p.o. nightly Zoloft 75 mg p.o. daily K-Dur 10 M EQ p.o. daily Toprol-XL 50 mg p.o. daily and 25 mg p.o. nightly Magnesium oxide 800 mg p.o. nightly Cytomel 50 mcg p.o. daily Hydrochlorothiazide 25 mg p.o. daily Gabapentin 100 mg p.o. daily Ferrous sulfate 3 and 25 mg p.o. twice daily Cardizem CD 180 mg p.o. twice daily Vitamin D 2000 IU p.o. nightly Calcium citrate 1000 mg p.o. daily Vitamin C 500 mg p.o. daily END OF DOCTOR EMAMIS DISCHARGE SUMMARY
[2021-03-21] MEDS: Hydrochlorothiazide 25 MG Tab PO SCH (08:29)
[2021-03-21] MEDS: Liothyronine 5 MCG Tab PO SCH (08:30)
[2021-03-21] MEDS: Potassium Chloride 10 MEQ Cap.ER PO SCH (08:30)
[2021-03-21] MEDS: Ascorbic Acid 500 MG Tab PO SCH (08:30)
[2021-03-21] MEDS: Sertraline 25 MG Tab PO SCH (08:30)
[2021-03-21] MEDS: Diltiazem 180 MG Cap.CD PO SCH (08:31)
[2021-03-21] MEDS: Metoprolol Succinate 50 MG Tab.ER PO SCH (08:31)
[2021-03-21] MEDS: Ferrous Sulfate 325 MG Tab PO SCH (08:35)
[2021-03-21] MEDS ORDERED: Pantoprazole 40 MG Tab.CR PO SCH (09:00)
[2021-03-21] MEDS ORDERED: Warfarin 2.5 MG Tab PO ONE (09:00)
[2021-03-21 11:15] VITALS: BP 136/47; PULSE 67
== END 2021-03-21 13:00 | disposition home or self-care (01) | DRG 872 ==
LOC: JP.ED 19:19 → JP.MS 21:00
PROVIDERS: ADMIT Internal Medicine; ATTEND Internal Medicine
PROC: XW033N5 Introduction of Meropenem-vaborbactam Anti-infective into Peripheral Vein, Percutaneous Approach, New Technology Group 5 (ICD-10-PCS; principal; 2021-03-19)
DX: A41.9 Sepsis, unspecified organism (principal); N39.0 Urinary tract infection, site not specified; Z68.41 Body mass index [BMI] 40.0-44.9, adult; E78.5 Hyperlipidemia, unspecified; I48.91 Unspecified atrial fibrillation; D50.9 Iron deficiency anemia, unspecified; E66.9 Obesity, unspecified; F41.9 Anxiety disorder, unspecified; E20.9 Hypoparathyroidism, unspecified; E87.6 Hypokalemia; E03.9 Hypothyroidism, unspecified; F32.9 Major depressive disorder, single episode, unspecified; I10 Essential (primary) hypertension; G62.9 Polyneuropathy, unspecified; G47.00 Insomnia, unspecified; K21.9 Gastro-esophageal reflux disease without esophagitis; E53.8 Deficiency of other specified B group vitamins; I34.0 Nonrheumatic mitral (valve) insufficiency; N28.9 Disorder of kidney and ureter, unspecified; Z20.822 Contact with and (suspected) exposure to COVID-19; H54.7 Unspecified visual loss; E78.00 Pure hypercholesterolemia, unspecified; Z96.659 Presence of unspecified artificial knee joint; F41.1 Generalized anxiety disorder; Z79.01 Long term (current) use of anticoagulants; Z88.1 Allergy status to other antibiotic agents; Z88.2 Allergy status to sulfonamides; Z88.5 Allergy status to narcotic agent; Z79.890 Hormone replacement therapy; Z79.899 Other long term (current) drug therapy; Z90.49 Acquired absence of other specified parts of digestive tract; Z90.710 Acquired absence of both cervix and uterus; Z88.8 Allergy status to other drugs, medicaments and biological substances; Z91.041 Radiographic dye allergy status; Z88.0 Allergy status to penicillin
CPT/HCPCS: 0241U; 36415; 80048; 80053; 81001; 82150; 82728; 82947; 83550; 83605; 83690; 83735; 84145; 84439; 84443; 85025; 85610; 87040; 87077; 87186; 96374; 99285-25; A9270-GY; C9113; J0744; J2405; J7030

== ENCOUNTER 2021-04-12 13:17 | Emergency (ER) | payer MEDICARE ==
[2021-04-12 14:04] VITALS: BP 124/42
[2021-04-12] MEDS ORDERED: Sodium Chloride 0.9% 10 ML Syringe FLUSH PRN (14:34)
[2021-04-12] MEDS ORDERED: Ondansetron 4 MG/2 ML SDV IVPUSH ONE (14:35)
--- NOTE | 2021-04-12 14:38 | EDM.PDOC ---
ED HPI GENERAL MEDICAL PROBLEM - General Chief Complaint: General Stated Complaint: MEDICAL Time Seen by Provider: 04/12/21 14:27 Source of Information: Reports: Patient, RN Notes Reviewed History Limitations: Reports: No Limitations - History of Present Illness INITIAL COMMENTS - FREE TEXT/NARRATIVE: 76-year-old female presents emergency department day complaint of weakness, she was admitted to the hospital earlier in the month for urosepsis. She states she was doing okay but in the last 4 days has been progressively weak she feels more short of breath than usual feels nauseated no fevers no chest pain - Related Data Allergies Allergy/AdvReac Type Severity Reaction Status Date / Time amitriptyline Allergy Insomnia Verified 04/12/21 13:49 ampicillin Allergy Itching Verified 04/12/21 13:49 buspirone [From BuSpar] Allergy Other Verified 04/12/21 13:49 cephalexin Allergy Rash Verified 04/12/21 13:49 doxycycline Allergy Itching Verified 04/12/21 13:49 duloxetine [From Cymbalta] Allergy Cannot Verified 04/12/21 13:49 Remember erythromycin base Allergy Itching Verified 04/12/21 13:49 escitalopram [From Lexapro] Allergy Cannot Verified 04/12/21 13:49 Remember hydromorphone [From Dilaudid] Allergy Pain Verified 04/12/21 13:49 Iodinated Contrast Media Allergy Rash Verified 04/12/21 13:49 [Iodinated Contrast Media - Oral and] metronidazole Allergy Cannot Verified 04/12/21 13:49 Remember nortriptyline [From Pamelor] Allergy Insomnia Verified 04/12/21 13:49 paroxetine [From Paxil] Allergy Headache Verified 04/12/21 13:49 Penicillins Allergy Itching Verified 04/12/21 13:49 spironolactone Allergy Cannot Verified 04/12/21 13:49 Remember Sulfa (Sulfonamide Allergy Itching Verified 04/12/21 13:49 Antibiotics) vancomycin Allergy Rash Verified 04/12/21 13:49 levofloxacin [From Levaquin] AdvReac Nausea Verified 04/12/21 13:49 Home Meds: Home Meds Cholecalciferol (Vitamin D3) [Vitamin D3] 2,000 unit PO BEDTIME 10/07/16 [History] Levothyroxine 137 mcg PO ACBREAKFAST 10/07/16 [History] Liothyronine [Cytomel] 15 mcg PO DAILY 10/07/16 [History] Magnesium 800 mg PO BEDTIME 10/07/16 [History] traZODone 100 mg PO BEDTIME 11/18/16 [History] Diltiazem [Cardizem CD] 180 mg PO BID 12/24/16 [History] Metoprolol Succinate 50 mg PO DAILY 12/24/16 [History] Calcium Citrate 4 tab PO DAILY 07/23/18 [History] Potassium Chloride [Klor-Con M20] 10 meq PO DAILY 07/23/18 [History] Sertraline [Zoloft] 75 mg PO DAILY 07/23/18 [History] Warfarin Sodium [Coumadin] 5 mg PO ASDIRECTED 04/24/20 [History] hydroCHLOROthiazide [Hydrochlorothiazide] 25 mg PO DAILY 04/24/20 [History] Gabapentin [Neurontin] 100 mg PO DAILY 03/19/21 [History] Past Medical History HEENT History: Reports: Impaired Vision Cardiovascular History: Reports: Afib, High Cholesterol, Hypertension Gastrointestinal History: Reports: GERD Genitourinary History: Reports: Other (See Below) Other Genitourinary History: 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 [employer]ANT History: Reports: Musculoskeletal History: Reports: Fracture Other Musculoskeletal History: Collar bone fx Psychiatric History: Reports: Anxiety, Depression Endocrine/Metabolic History: Reports: Diabetes, Type II, Hypoparathyroidism Other Endocrine/Metabolic History: pseudo Hematologic History: Reports: Anemia, B12 Deficiency, Iron Deficiency Immunologic History: Reports: Other (See Below) Other Immunologic History: hepatitis Dermatologic History: Reports: Other (See Below) Other Dermatologic History: breast yeast, has chronic open areas on arms and face - Infectious Disease History Infectious Disease History: Reports: Chicken Pox, Measles, Mumps Other Infectious Disease History: hepatitis - Past Surgical History Head Surgeries/Procedures: Reports: None HEENT Surgical History: Reports: Naso-Sinus Surgery, Tonsillectomy Cardiovascular Surgical History: Reports: Cardiac Ablation GI Surgical History: Reports: Appendectomy, Cholecystectomy Female Surgical History: Reports: Breast Biopsy, Hysterectomy Endocrine Surgical History: Reports: None Musculoskeletal Surgical History: Reports: Knee Replacement Dermatological Surgical History: Reports: None Social & Family History - Family History Family Medical History: No Pertinent Family History - Tobacco Use Tobacco Use Status *Q: Never Tobacco User - Caffeine Use Caffeine Use: Reports: Coffee - Living Situation & Occupation Living situation: Reports: Alone Occupation: Retired ED ROS GENERAL - Review of Systems Review Of Systems: See Below Constitutional: Reports: Weakness. Denies: Fever HEENT: Reports: No Symptoms Respiratory: Reports: Shortness of Breath Cardiovascular: Reports: No Symptoms GI/Abdominal: Reports: Nausea Musculoskeletal: Reports: No Symptoms ED EXAM, GENERAL - Physical Exam Exam: See Below Exam Limited By: No Limitations General Appearance: Alert, WD/WN, No Apparent Distress Respiratory/Chest: No Respiratory Distress, Lungs Clear, Normal Breath Sounds, No Accessory Muscle Use, Chest Non-Tender Cardiovascular: Regular Rate, Rhythm, No Murmur GI/Abdominal: Soft, Non-Tender Course - Vital Signs Last Recorded V/S: Last Vital Signs Temp 98 F 04/12/21 14:12 Pulse 65 04/12/21 15:18 Resp 20 04/12/21 14:12 BP 124/42 L 04/12/21 15:18 Pulse Ox 94 L 04/12/21 15:18 - Orders/Labs/Meds Orders: Active Orders 24 hr Category Date Time Status Peripheral IV Care [RC] . DIRECTED Care 04/12/21 14:35 Active Chest 2V [CR] Urgent Exams 04/12/21 14:36 Taken Lactated Ringers [Ringers, Lactated] 1,000 ml Med 04/12/21 14:45 Active IV .BOLUS Sodium Chloride 0.9% [Saline Flush] Med 04/12/21 14:34 Active 10 ml FLUSH ASDIRECTED PRN Isolation [COMM] Stat Oth 04/12/21 15:48 Ordered Peripheral IV Insertion Adult [OM.PC] Urgent Oth 04/12/21 14:34 Ordered Medication Orders Lactated Ringer's (Ringers, Lactated) 1,000 mls @ 500 mls/hr IV .BOLUS ALEJANDRO Last Admin: 04/12/21 15:19 Dose: 500 mls/hr Documented by: CASSY Sodium Chloride (Sodium Chloride 0.9% 10 Ml Syringe) 10 ml FLUSH ASDIRECTED PRN PRN Reason: Keep Vein Open Last Admin: 04/12/21 15:19 Dose: 10 ml Documented by: CASSY Labs: Laboratory Tests 04/12/21 04/12/21 04/12/21 Range/Units 14:34 14:57 14:57 WBC 3.8 L (4.5-11.0) K/uL RBC 4.50 (3.30-5.50) M/uL Hgb 11.0 L D (12.0-15.0) g/dL Hct 34.6 L (36.0-48.0) % MCV 77 L (80-98) fL MCH 24 L (27-31) pg MCHC 32 (32-36) % Plt Count 161 (150-400) K/uL Neut % (Auto) 74.4 H (36-66) % Lymph % (Auto) 14.5 L (24-44) % [place] % (Auto) 10.8 H (2-6) % Eos % (Auto) 0.0 L (2-4) % Baso % (Auto) 0.3 (0-1) % Sodium 137 L (140-148) mmol/L Potassium 3.2 L (3.6-5.2) mmol/L Chloride 96 L (100-108) mmol/L Carbon Dioxide 30 (21-32) mmol/L Anion Gap 14.2 H (5.0-14.0) mmol/L BUN 17 (7-18) mg/dL Creatinine 0.9 (0.6-1.0) mg/dL Est Cr Clr Drug Dosing 46.36 mL/min Estimated GFR (MDRD) > 60 (>60) Glucose 108 H (74-106) mg/dL Lactic Acid (0.4-2.0) mmol/L Calcium 8.2 L (8.5-10.1) mg/dL Total Bilirubin 0.4 (0.2-1.0) mg/dL AST 33 (15-37) U/L ALT 35 (12-78) U/L Alkaline Phosphatase 103 (46-116) U/L Troponin I < 0.017 (0.000-0.056) ng/mL Total Protein 7.0 (6.4-8.2) g/dL Albumin 2.9 L (3.4-5.0) g/dL Globulin 4.1 H (2.3-3.5) g/dL Albumin/Globulin Ratio 0.7 L (1.2-2.2) Urine Color Yellow (YELLOW) Urine Appearance Clear (CLEAR) Urine pH 7.0 (5.0-8.0) Ur Specific [place] 1.015 (1.008-1.030) Urine Protein Negative (NEGATIVE) mg/dL Urine Glucose (UA) Negative (NEGATIVE) mg/dL Urine Ketones Negative (NEGATIVE) mg/dL Urine Occult Blood Negative (NEGATIVE) Urine Nitrite Negative (NEGATIVE) Urine Bilirubin Negative (NEGATIVE) Urine Urobilinogen 0.2 (0.2-1.0) EU/dL Ur Leukocyte Esterase Negative (NEGATIVE) Urine RBC 0-5 (0-5) Urine WBC 0-5 (0-5) Ur Epithelial Cells Few Amorphous Sediment Not seen Urine Bacteria Not seen Urine Mucus Not seen Influenza Type A RNA (NEGATIVE) RSV RNA (INAAT) (NEGATIVE) Influenza Type B RNA (NEGATIVE) SARS-CoV-2 RNA (DAVION) (NEGATIVE) 04/12/21 04/12/21 Range/Units 14:57 15:48 WBC (4.5-11.0) K/uL RBC (3.30-5.50) M/uL Hgb (12.0-15.0) g/dL Hct (36.0-48.0) % MCV (80-98) fL MCH (27-31) pg MCHC (32-36) % Plt Count (150-400) K/uL Neut % (Auto) (36-66) % Lymph % (Auto) (24-44) % [place] % (Auto) (2-6) % Eos % (Auto) (2-4) % Baso % (Auto) (0-1) % Sodium (140-148) mmol/L Potassium (3.6-5.2) mmol/L Chloride (100-108) mmol/L Carbon Dioxide (21-32) mmol/L Anion Gap (5.0-14.0) mmol/L BUN (7-18) mg/dL Creatinine (0.6-1.0) mg/dL Est Cr Clr Drug Dosing mL/min Estimated GFR (MDRD) (>60) Glucose (74-106) mg/dL Lactic Acid 0.9 (0.4-2.0) mmol/L Calcium (8.5-10.1) mg/dL Total Bilirubin (0.2-1.0) mg/dL AST (15-37) U/L ALT (12-78) U/L Alkaline Phosphatase (46-116) U/L Troponin I (0.000-0.056) ng/mL Total Protein (6.4-8.2) g/dL Albumin (3.4-5.0) g/dL Globulin (2.3-3.5) g/dL Albumin/Globulin Ratio (1.2-2.2) Urine Color (YELLOW) Urine Appearance (CLEAR) Urine pH (5.0-8.0) Ur Specific [place] (1.008-1.030) Urine Protein (NEGATIVE) mg/dL Urine Glucose (UA) (NEGATIVE) mg/dL Urine Ketones (NEGATIVE) mg/dL Urine Occult Blood (NEGATIVE) Urine Nitrite (NEGATIVE) Urine Bilirubin (NEGATIVE) Urine Urobilinogen (0.2-1.0) EU/dL Ur Leukocyte Esterase (NEGATIVE) Urine RBC (0-5) Urine WBC (0-5) Ur Epithelial Cells Amorphous Sediment Urine Bacteria Urine Mucus Influenza Type A RNA Negative (NEGATIVE) RSV RNA (INAAT) Negative (NEGATIVE) Influenza Type B RNA Negative (NEGATIVE) SARS-CoV-2 RNA (DAVION) Positive H (NEGATIVE) Meds: Medications Generic Name Dose Route Start Last Admin Trade Name Freq PRN Reason Stop Dose Admin Lactated Ringer's 1,000 mls @ 500 mls/hr 04/12/21 14:45 04/12/21 15:19 Ringers, Lactated IV 500 mls/hr .BOLUS ALEJANDRO Administration Sodium Chloride 10 ml 04/12/21 14:34 04/12/21 15:19 Sodium Chloride 0.9% 10 Ml Syringe FLUSH 10 ml ASDIRECTED PRN Administration Keep Vein Open Discontinued Medications Generic Name Dose Route Start Last Admin Trade Name Freq PRN Reason Stop Dose Admin Ondansetron HCl 4 mg 04/12/21 14:35 04/12/21 15:19 Ondansetron 4 Mg/2 Ml Sdv IVPUSH 04/12/21 14:36 4 mg ONETIME ONE Administration Departure - Departure Time of Disposition: 17:54 Disposition: Home, Self-Care 01 Condition: Fair Clinical Impression: COVID-19 - Discharge Information Instructions: COVID-19 Referrals: PCP,None [Primary Care Provider] - Forms: ED Department Discharge Additional Instructions: Outpatient treatment will call you for the monoclonal antibody therapy Sepsis Event Note (ED) - Evaluation Sepsis Screening Result: No Definite Risk - Focused Exam Vital Signs: Vital Signs Temp Pulse Resp BP Pulse Ox 04/12/21 15:18 65 124/42 L 94 L 04/12/21 14:12 98 F 64 20 124/42 L 95 04/12/21 13:59 98 F 64 20 124/42 L 95 - My Orders Last 24 Hours: My Active Orders 04/12/21 14:34 Sodium Chloride 0.9% [Saline Flush] 10 ml FLUSH ASDIRECTED PRN Peripheral IV Insertion Adult [OM.PC] Urgent 04/12/21 14:35 Peripheral IV Care [RC] . DIRECTED 04/12/21 14:36 Chest 2V [CR] Urgent 04/12/21 14:45 Lactated Ringers [Ringers, Lactated] 1,000 ml IV .BOLUS 04/12/21 15:48 Isolation [COMM] Stat - Assessment/Plan Last 24 Hours: My Active Orders 04/12/21 14:34 Sodium Chloride 0.9% [Saline Flush] 10 ml FLUSH ASDIRECTED PRN Peripheral IV Insertion Adult [OM.PC] Urgent 04/12/21 14:35 Peripheral IV Care [RC] . DIRECTED 04/12/21 14:36 Chest 2V [CR] Urgent 04/12/21 14:45 Lactated Ringers [Ringers, Lactated] 1,000 ml IV .BOLUS 04/12/21 15:48 Isolation [COMM] Stat Plan: Assessment Acuity = acute Site and laterality = viral syndrome Etiology = COVID-19 Manifestations = weakness Location of injury = Home Lab values = WBC low at 3.8 consistent leukopenia, hemoglobin low 11.0 consistent with normochromic anemia sodium low at 137 consistent hyponatremia potassium low at 3.2 consistent hypokalemia lactic acid normal 0.8 troponin was negative urinalysis negative Covid positive, influenza and RSV both negative [facility] st x-ray I did review films myself I cannot appreciate any acute process, the official read from radiology is pending Plan Forbes she was a candidate for monoclonal antibodies orders have been provided as she will set up for this in the next couple of days This note was dictated using [employer] recognition software please call with any questions on syntax or grammar.
[2021-04-12] MEDS ORDERED: Lactated Ringers 1,000 ML IV SCH (14:45)
[2021-04-12 15:19] VITALS: PULSE 65
[2021-04-12 17:31] LABS: CORONAVIRUS COVID-19 NAA POSITIVE (NEGATIVE)
--- NOTE | 2021-04-15 13:49 | CR ---
CHEST: 2 view CLINICAL HISTORY:SOB COMPARISON:2019 FINDINGS: Heart size and pulmonary vascular normal. There is some patchy density in the right infrahilar region felt to be in the right middle lobe. No effusion is seen. There are atherosclerotic changes in the aorta. Impression: Patchy right middle lobe density is suspect for pneumonic infiltrate. Short-term follow-up recommended.
== END 2021-04-12 18:55 | disposition home or self-care (01) ==
LOC: JP.ED 13:17
DX: U07.1 COVID-19 (principal); I48.91 Unspecified atrial fibrillation; E78.00 Pure hypercholesterolemia, unspecified; I10 Essential (primary) hypertension; E11.9 Type 2 diabetes mellitus without complications; Z79.01 Long term (current) use of anticoagulants; Z79.899 Other long term (current) drug therapy; Z88.0 Allergy status to penicillin; Z88.1 Allergy status to other antibiotic agents; Z88.2 Allergy status to sulfonamides; Z91.041 Radiographic dye allergy status; Z88.5 Allergy status to narcotic agent
CPT/HCPCS: 0241U; 36415; 71046; 71046-26; 80053; 81001; 83605; 84484; 85025; 96374; 99284; 99285-25; J2405; J7120

== ENCOUNTER 2021-12-02 11:08 | Emergency (ER) | payer MEDICARE ==
[2021-12-02] MEDS ORDERED: Sodium Chloride 0.9% 10 ML Syringe FLUSH PRN (11:38)
--- NOTE | 2021-12-02 11:41 | EDM.PDOC ---
ED HPI GENERAL MEDICAL PROBLEM - General Chief Complaint: Genitourinary Problem Stated Complaint: BLADDER INFECTION?? Time Seen by Provider: 12/02/21 11:36 Source of Information: Reports: Patient History Limitations: Reports: No Limitations - History of Present Illness INITIAL COMMENTS - FREE TEXT/NARRATIVE: 76-year-old female arrives very anxious, intermittent chills and sweats, lower abdominal discomfort, hyperventilation and extremely uncomfortable. She has been treated for a UTI for the past week but continues to have intermittent lower abdominal pain. She arrives to the emergency room extremely anxious, appears to be hyperventilating with carpal spasms and anxiety. Onset: Unknown/Unsure Duration: Week(s): (Symptoms have been ongoing for the past 1 to 2 weeks, waxing and waning), Waxing/Waning Location: Reports: Generalized (Generalized dizziness, diaphoresis, hyperventilation and anxiety), Other (The only pain complaint she is having is intermittent lower abdominal pain, suprapubic area) Quality: Reports: Ache, Burning Improves with: Reports: None Worsens with: Reports: None Associated Symptoms: Reports: Diaphoresis, Loss of Appetite, Malaise, Weakness. Denies: Nausea/Vomiting Pelvic Pain Score (Numeric/FACES): 7 - Related Data Allergies Allergy/AdvReac Type Severity Reaction Status Date / Time amitriptyline Allergy Insomnia Verified 12/02/21 12:06 ampicillin Allergy Itching Verified 12/02/21 12:06 buspirone [From BuSpar] Allergy Other Verified 12/02/21 12:06 cephalexin Allergy Rash Verified 12/02/21 12:06 doxycycline Allergy Itching Verified 12/02/21 12:06 duloxetine [From Cymbalta] Allergy Cannot Verified 12/02/21 12:06 Remember erythromycin base Allergy Itching Verified 12/02/21 12:06 escitalopram [From Lexapro] Allergy Cannot Verified 12/02/21 12:06 Remember hydromorphone [From Dilaudid] Allergy Pain Verified 12/02/21 12:06 Iodinated Contrast Media Allergy Rash Verified 12/02/21 12:06 [Iodinated Contrast Media - Oral and] metronidazole Allergy Cannot Verified 12/02/21 12:06 Remember nortriptyline [From Pamelor] Allergy Insomnia Verified 12/02/21 12:06 paroxetine [From Paxil] Allergy Headache Verified 12/02/21 12:06 Penicillins Allergy Itching Verified 12/02/21 12:06 spironolactone Allergy Cannot Verified 12/02/21 12:06 Remember Sulfa (Sulfonamide Allergy Itching Verified 12/02/21 12:06 Antibiotics) vancomycin Allergy Rash Verified 12/02/21 12:06 levofloxacin [From Levaquin] AdvReac Nausea Verified 12/02/21 12:06 Home Meds: Home Meds Cholecalciferol (Vitamin D3) [Vitamin D3] 5,000 unit PO BEDTIME 10/07/16 [History] Levothyroxine 137 mcg PO ACBREAKFAST 10/07/16 [History] Liothyronine [Cytomel] 15 mcg PO DAILY 10/07/16 [History] Magnesium 800 mg PO BEDTIME 10/07/16 [History] traZODone 100 mg PO BEDTIME 11/18/16 [History] Diltiazem [Cardizem CD] 180 mg PO BID 12/24/16 [History] Metoprolol Succinate 50 mg PO DAILY 12/24/16 [History] Calcium Citrate 4 tab PO DAILY 07/23/18 [History] Potassium Chloride [Klor-Con M20] 10 meq PO DAILY 07/23/18 [History] Sertraline [Zoloft] 75 mg PO DAILY 07/23/18 [History] Warfarin Sodium [Coumadin] 5 mg PO ASDIRECTED 04/24/20 [History] hydroCHLOROthiazide [Hydrochlorothiazide] 25 mg PO DAILY 04/24/20 [History] Gabapentin [Neurontin] 100 mg PO DAILY 03/19/21 [History] Past Medical History HEENT History: Reports: Impaired Vision Cardiovascular History: Reports: Afib, High Cholesterol, Hypertension Gastrointestinal History: Reports: GERD Genitourinary History: Reports: Other (See Below) Other Genitourinary History: 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 [employer] History: Reports: Musculoskeletal History: Reports: Fracture Other Musculoskeletal History: Collar bone fx Psychiatric History: Reports: Anxiety, Depression Endocrine/Metabolic History: Reports: Diabetes, Type II, Hypoparathyroidism Other Endocrine/Metabolic History: pseudo Hematologic History: Reports: Anemia, B12 Deficiency, Iron Deficiency Immunologic History: Reports: Other (See Below) Other Immunologic History: hepatitis Dermatologic History: Reports: Other (See Below) Other Dermatologic History: breast yeast, has chronic open areas on arms and face - Infectious Disease History Infectious Disease History: Reports: Chicken Pox, Measles, Mumps Other Infectious Disease History: hepatitis - Past Surgical History Head Surgeries/Procedures: Reports: None HEENT Surgical History: Reports: Naso-Sinus Surgery, Tonsillectomy Cardiovascular Surgical History: Reports: Cardiac Ablation GI Surgical History: Reports: Appendectomy, Cholecystectomy Female Surgical History: Reports: Breast Biopsy, Hysterectomy Endocrine Surgical History: Reports: None Musculoskeletal Surgical History: Reports: Knee Replacement Dermatological Surgical History: Reports: None Social & Family History - Family History Family Medical History: No Pertinent Family History - Caffeine Use Caffeine Use: Reports: Coffee - Living Situation & Occupation Living situation: Reports: Alone Occupation: Retired ED ROS GENERAL - Review of Systems Review Of Systems: See Below Constitutional: Reports: Fever, Chills, Malaise HEENT: Denies: Throat Pain, Vision Change Respiratory: Denies: Shortness of Breath, Cough Cardiovascular: Denies: Chest Pain GI/Abdominal: Reports: Abdominal Pain. Denies: Constipation, Diarrhea, Vomiting : Denies: Dysuria, Frequency, Urgency Musculoskeletal: Reports: No Symptoms Skin: Reports: Diaphoresis Neurological: Reports: Dizziness. Denies: Headache Psychiatric: Reports: Anxiety ED EXAM, GENERAL - Physical Exam Exam: See Below Exam Limited By: No Limitations General Appearance: Alert, Anxious, Other (On arrival the patient is acutely hyperventilating, anxious and shaky. She was hardly able to talk she was so ups et) Eye Exam: Bilateral Eye: Normal Inspection Head: Atraumatic Neck: Supple, Non-Tender Respiratory/Chest: Lungs Clear Cardiovascular: Regular Rate, Rhythm. No: Extra Beats GI/Abdominal: Normal Bowel Sounds, Soft, Tender (She does react with tenderness to palpation of the lower abdomen centrally, no significant guarding and no rebound tenderness) Extremities: Normal Inspection. No: Pedal Edema Neurological: Alert, Oriented, No Motor/Sensory Deficits Psychiatric: Anxious Skin Exam: Warm, Dry Course - Vital Signs Last Recorded V/S: Last Vital Signs Temp 97.3 F 12/02/21 12:11 Pulse 65 12/02/21 12:11 Resp 20 12/02/21 12:11 BP 137/59 L 12/02/21 12:11 Pulse Ox 96 12/02/21 12:11 - Orders/Labs/Meds Orders: Active Orders 24 hr Category Date Time Status Sodium Chloride 0.9% [Saline Flush] Med 12/02/21 11:38 Active 10 ml FLUSH ASDIRECTED PRN Saline Lock Insert [OM.PC] Routine Oth 12/02/21 11:38 Ordered Medication Orders Sodium Chloride (Sodium Chloride 0.9% 10 Ml Syringe) 10 ml FLUSH ASDIRECTED PRN PRN Reason: Keep Vein Open Last Admin: 12/02/21 12:04 Dose: 10 ml Documented by: MIS Labs: Laboratory Tests 12/02/21 12/02/21 12/02/21 Range/Units 12:15 12:15 12:19 WBC 6.2 (3.2-11.0) K/uL RBC 5.02 (3.77-5.24) M/uL Hgb 14.2 (11.2-15.5) Hct 41.1 (34.3-46.0) % MCV 81.9 (81.4-99.0) fL MCH 28.3 L (31.6-35.5) pg MCHC 34.5 (31.6-35.5) g/dL Plt Count 271 (130-375) K/uL Immature Gran % (Auto) 0.5 (0.0-0.7) % Neut % (Auto) 74.1 (40.0-78.1) % Lymph % (Auto) 14.6 (11.4-47.7) % Polk % (Auto) 8.8 (3.3-12.6) % Eos % (Auto) 1.0 (0.0-5.4) % Baso % (Auto) 1.0 (0.1-1.3) % Neut # (Auto) 4.62 (1.0-7.6) K/uL Lymph # (Auto) 0.91 (0.8-3.3) K/uL Polk # (Auto) 0.55 (0.20-0.90) K/uL Eos # (Auto) 0.06 (0.00-0.40) K/uL Baso # (Auto) 0.06 (0.00-0.10) K/uL Immature Gran # (Auto) 0.03 (0.00-0.23) K/uL Puncture Site Rt radial ABG pH 7.479 H (7.350-7.450) ABG pCO2 32.6 L (35.0-42.0) mmHg ABG pO2 63.6 L (75.0-100.0) mmHg ABG HCO3 23.9 (22.0-26.0) mmol/L ABG Total CO2 20.6 L (21.0-25.0) mmol/L ABG O2 Saturation 92.7 L (95.0-98.0) % ABG O2 Content 18.3 (15.0-23.0) %vol ABG Base Excess 1.4 mm/L ABG Hemoglobin 14.3 (12.0-16.0) g/dL ABG Oxyhemoglobin 90.8 % ABG Carboxyhemoglobin 0.9 (0.0-1.6) % ABG Methemoglobin 1.1 % Herson Test Passed O2 Delivery Device Room air Oxygen Flow Rate L Sodium 133 L (140-148) mmol/L Potassium 3.2 L (3.6-5.2) mmol/L Chloride 96 L (100-108) mmol/L Carbon Dioxide 22 (21-32) mmol/L Anion Gap 18.2 H (5.0-14.0) mmol/L BUN 16 (7-18) mg/dL Creatinine 1.1 H (0.6-1.0) mg/dL Est Cr Clr Drug Dosing 36.40 mL/min Estimated GFR (MDRD) 48 L (>60) Glucose 129 H (74-106) mg/dL Calcium 8.6 (8.5-10.1) mg/dL Total Bilirubin 0.4 (0.2-1.0) mg/dL AST 19 (15-37) U/L ALT 26 (12-78) U/L Alkaline Phosphatase 100 (46-116) U/L C-Reactive Protein 0.72 H (0.0-0.3) mg/dL Total Protein 7.9 (6.4-8.2) g/dL Albumin 3.6 (3.4-5.0) g/dL Globulin 4.3 H (2.3-3.5) g/dL Albumin/Globulin Ratio 0.8 L (1.2-2.2) Urine Color (YELLOW) Urine Appearance (CLEAR) Urine pH (5.0-8.0) Ur Specific Krebs (1.008-1.030) Urine Protein (NEGATIVE) mg/dL Urine Glucose (UA) (NEGATIVE) mg/dL Urine Ketones (NEGATIVE) mg/dL Urine Occult Blood (NEGATIVE) Urine Nitrite (NEGATIVE) Urine Bilirubin (NEGATIVE) Urine Urobilinogen (0.2-1.0) EU/dL Ur Leukocyte Esterase (NEGATIVE) Urine RBC (0-5) Urine WBC (0-5) Ur Epithelial Cells Amorphous Sediment Urine Bacteria Urine Mucus 12/02/21 Range/Units 12:44 WBC (3.2-11.0) K/uL RBC (3.77-5.24) M/uL Hgb (11.2-15.5) Hct (34.3-46.0) % MCV (81.4-99.0) fL MCH (31.6-35.5) pg MCHC (31.6-35.5) g/dL Plt Count (130-375) K/uL Immature Gran % (Auto) (0.0-0.7) % Neut % (Auto) (40.0-78.1) % Lymph % (Auto) (11.4-47.7) % Polk % (Auto) (3.3-12.6) % Eos % (Auto) (0.0-5.4) % Baso % (Auto) (0.1-1.3) % Neut # (Auto) (1.0-7.6) K/uL Lymph # (Auto) (0.8-3.3) K/uL Polk # (Auto) (0.20-0.90) K/uL Eos # (Auto) (0.00-0.40) K/uL Baso # (Auto) (0.00-0.10) K/uL Immature Gran # (Auto) (0.00-0.23) K/uL Puncture Site ABG pH (7.350-7.450) ABG pCO2 (35.0-42.0) mmHg ABG pO2 (75.0-100.0) mmHg ABG HCO3 (22.0-26.0) mmol/L ABG Total CO2 (21.0-25.0) mmol/L ABG O2 Saturation (95.0-98.0) % ABG O2 Content (15.0-23.0) %vol ABG Base Excess mm/L ABG Hemoglobin (12.0-16.0) g/dL ABG Oxyhemoglobin % ABG Carboxyhemoglobin (0.0-1.6) % ABG Methemoglobin % Herson Test O2 Delivery Device Oxygen Flow Rate L Sodium (140-148) mmol/L Potassium (3.6-5.2) mmol/L Chloride (100-108) mmol/L Carbon Dioxide (21-32) mmol/L Anion Gap (5.0-14.0) mmol/L BUN (7-18) mg/dL Creatinine (0.6-1.0) mg/dL Est Cr Clr Drug Dosing mL/min Estimated GFR (MDRD) (>60) Glucose (74-106) mg/dL Calcium (8.5-10.1) mg/dL Total Bilirubin (0.2-1.0) mg/dL AST (15-37) U/L ALT (12-78) U/L Alkaline Phosphatase (46-116) U/L C-Reactive Protein (0.0-0.3) mg/dL Total Protein (6.4-8.2) g/dL Albumin (3.4-5.0) g/dL Globulin (2.3-3.5) g/dL Albumin/Globulin Ratio (1.2-2.2) Urine Color Yellow (YELLOW) Urine Appearance Clear (CLEAR) Urine pH 8.5 H (5.0-8.0) Ur Specific Krebs 1.015 (1.008-1.030) Urine Protein Negative (NEGATIVE) mg/dL Urine Glucose (UA) Negative (NEGATIVE) mg/dL Urine Ketones Negative (NEGATIVE) mg/dL Urine Occult Blood Negative (NEGATIVE) Urine Nitrite Negative (NEGATIVE) Urine Bilirubin Negative (NEGATIVE) Urine Urobilinogen 0.2 (0.2-1.0) EU/dL Ur Leukocyte Esterase Negative (NEGATIVE) Urine RBC 0-5 (0-5) Urine WBC 0-5 (0-5) Ur Epithelial Cells Occasional Amorphous Sediment Occasional Urine Bacteria Occasional Urine Mucus Occasional Meds: Medications Generic Name Dose Route Start Last Admin Trade Name Freq PRN Reason Stop Dose Admin Sodium Chloride 10 ml 12/02/21 11:38 12/02/21 12:04 Sodium Chloride 0.9% 10 Ml Syringe FLUSH 10 ml ASDIRECTED PRN Administration Keep Vein Open - Re-Assessments/Exams Free Text/Narrative Re-Assessment/Exam: 12/02/21 13:29 Over the course of the initial 20 to 30 minutes the patient was here, she calmed down significantly and was able to visit and became generally asymptomatic other than weakness. A mini cath UA was obtained which was negative. CBC CMP CRP was obtained and those were reassuring as well, CRP just mildly elevated at 0.7. CBC was normal. A CT of the abdomen and pelvis without contrast was ordered for completeness. 12/02/21 15:01 Patient remained calm for the last hour that she was in the emergency room and relatively asymptomatic. CT the abdomen and pelvis was negative. I encouraged her to just continue her medications and follow-up with her primary provider if symptoms are persistent. Departure - Departure Time of Disposition: 15:45 Disposition: Home, Self-Care 01 Clinical Impression: Anxiety about health, Lower abdominal pain - Discharge Information Instructions: Managing Anxiety, Adult Referrals: Jovana Torres DO [Primary Care Provider] - Forms: ED Department Discharge Care Plan Goals: Continue your current medications, drink lots of water or consider a stool softener daily. It may also be beneficial to take a daily antacid medication like Prilosec or Zantac. Recheck with Dr. Torres in the next 1 to 2 weeks if not improving satisfactorily or any time if you think more evaluation is needed. Sepsis Event Note (ED) - Focused Exam Vital Signs: Vital Signs Temp Pulse Resp BP Pulse Ox 12/02/21 12:11 97.3 F 65 20 137/59 L 20 L - My Orders Last 24 Hours: My Active Orders 12/02/21 11:38 Sodium Chloride 0.9% [Saline Flush] 10 ml FLUSH ASDIRECTED PRN Saline Lock Insert [OM.PC] Routine - Assessment/Plan Last 24 Hours: My Active Orders 12/02/21 11:38 Sodium Chloride 0.9% [Saline Flush] 10 ml FLUSH ASDIRECTED PRN Saline Lock Insert [OM.PC] Routine
[2021-12-02 12:25] VITALS: BP 137/59; PULSE 65
--- NOTE | 2021-12-02 15:01 | CT ---
Abdomen Pelvis wo Cont CLINICAL HISTORY: Lower abdominal pain COMPARISON: None. TECHNIQUE: Axial tomographic images are obtained from the dome of the diaphragm to the pubic symphysis without IV contrast enhancement. No oral contrast was used. The dosage reduction and iterative reconstruction techniques employed. FINDINGS: The lung bases are clear. There is a small hiatal hernia. The liver has a 1 cm low-attenuation focus in the left lobe of the liver. This is felt to represent small cyst. The gallbladder has been removed. The spleen has a normal size and shape. The pancreas shows no mass or inflammatory change. The adrenal glands appear normal bilaterally. The right kidney contains multiple low-attenuation foci. Largest measures 2.3 cm. The ureters have a normal course and caliber. The bladder has a normal contour. Uterus is been removed. Patient status post appendectomy. Small intestinal configuration is nonacute.. The aorta shows atheromatous plaque without aneurysm. There is no suspicious retroperitoneal adenopathy. There is a small fat-containing periumbilical ventral hernia. There is diverticulosis without evidence of diverticulitis. Abdominal pelvic fat planes are well demarcated. IMPRESSION: Small periumbilical hernia Small hepatic and right renal cysts. Diverticulosis without evidence of diverticulitis
== END 2021-12-02 15:45 | disposition home or self-care (01) ==
LOC: JP.ED 11:08
DX: F41.9 Anxiety disorder, unspecified (principal); R10.30 Lower abdominal pain, unspecified; I48.91 Unspecified atrial fibrillation; E78.00 Pure hypercholesterolemia, unspecified; I10 Essential (primary) hypertension; K21.9 Gastro-esophageal reflux disease without esophagitis; E11.9 Type 2 diabetes mellitus without complications; Z88.2 Allergy status to sulfonamides; Z88.0 Allergy status to penicillin; Z88.1 Allergy status to other antibiotic agents; Z91.041 Radiographic dye allergy status; Z88.5 Allergy status to narcotic agent; Z88.8 Allergy status to other drugs, medicaments and biological substances; Z79.899 Other long term (current) drug therapy; Z79.01 Long term (current) use of anticoagulants
CPT/HCPCS: 36415; 36600; 74176; 74176-26; 80053; 81001; 82803; 85025; 86140; 99284-25

== ENCOUNTER 2022-10-28 21:44 | Emergency (ER) | payer MEDICARE ==
[2022-10-28] MEDS ORDERED: Propofol 200 MG/20 ML SDV ONE (22:43)
[2022-10-28 22:56] VITALS: BP 116/61; PULSE 63
== END 2022-10-28 23:34 | disposition home or self-care (01) ==
LOC: JP.ED 21:44
DX: I48.91 Unspecified atrial fibrillation (principal); F41.9 Anxiety disorder, unspecified; I10 Essential (primary) hypertension; E11.9 Type 2 diabetes mellitus without complications; E20.9 Hypoparathyroidism, unspecified; Z88.8 Allergy status to other drugs, medicaments and biological substances; Z88.1 Allergy status to other antibiotic agents; Z88.5 Allergy status to narcotic agent; Z91.041 Radiographic dye allergy status; Z88.0 Allergy status to penicillin; Z88.2 Allergy status to sulfonamides; Z79.899 Other long term (current) drug therapy; Z79.01 Long term (current) use of anticoagulants
CPT/HCPCS: 92960; 93005; 99284; J2704

== ENCOUNTER 2023-02-10 14:14 | Emergency (ER) | payer MEDICARE ==
[2023-02-10 14:55] LABS: ESTIMATED GFR 57 mL/min (>60)
[2023-02-10] MEDS ORDERED: Propofol 200 MG/20 ML SDV ONE (15:56)
[2023-02-10 16:35] VITALS: BP 150/81
== END 2023-02-10 17:01 | disposition home or self-care (01) ==
LOC: JP.ED 14:14
DX: I48.91 Unspecified atrial fibrillation (principal); E78.00 Pure hypercholesterolemia, unspecified; I10 Essential (primary) hypertension; Z79.01 Long term (current) use of anticoagulants; Z88.0 Allergy status to penicillin; Z88.1 Allergy status to other antibiotic agents; Z88.8 Allergy status to other drugs, medicaments and biological substances; Z88.5 Allergy status to narcotic agent; Z91.041 Radiographic dye allergy status; Z88.2 Allergy status to sulfonamides; Z79.899 Other long term (current) drug therapy
CPT/HCPCS: 36415; 80053; 81001; 83735; 85025; 85610; 93005; 99285; J2704

== ENCOUNTER 2025-01-22 04:35 | Emergency (ER) | payer MEDICARE ==
[2025-01-22 05:02] LABS: BASOPHILS PERCENT AUTO 0.2 % (0.1-1.3); EOSINOPHILS PERCENT AUTO 0.1 % (0.0-5.4); HEMATOCRIT 38.4 % (34.3-46.0); HEMOGLOBIN 13.4 g/dL (11.2-15.5); IMMATURE GRAN ABSOLUTE AUTO 0.03 K/uL (0.00-0.23); IMMATURE GRAN PERCENT AUTO 0.3 % (0.0-0.7); LYMPHOCYTES ABSOLUTE AUTO 1.57 K/uL (0.8-3.3); LYMPHOCYTES PERCENT AUTO 16.8 % (11.4-47.7); MEAN CORPUSCULAR HGB CONC 34.9 g/dL (31.6-35.5); MEAN CORPUSCULAR VOLUME 77.3 fL (81.4-99.0); MONOCYTES PERCENT AUTO 8.5 % (3.3-12.6); NEUTROPHILS ABSOLUTE AUTO 6.94 K/uL (1.0-7.6); NEUTROPHILS PERCENT AUTO 74.1 % (40.0-78.1); PLATELET COUNT,PLT 317 K/uL (130-375); RED BLOOD CELL COUNT 4.97 M/uL (3.77-5.24); WHITE BLOOD CELL COUNT,WBC 9.4 K/uL (3.2-11.0)
[2025-01-22 05:22] LABS: A/G RATIO 0.8 (1.2-2.2); ALANINE AMINOTRANSFERASE,ALT 31 U/L (12-78); ALBUMIN 3.5 g/dL (3.4-5.0); ALKALINE PHOSPHATASE 106 U/L (46-116); ASPARTATE AMNIOTRANSFERASE,AST 102 U/L (15-37); BILIRUBIN TOTAL 0.7 mg/dL (0.2-1.0); BLOOD UREA NITROGEN,BUN 12 mg/dL (7-18); CALCIUM 8.7 mg/dL (8.5-10.1); CARBON DIOXIDE,CO2 21 mmol/L (21-32); CHLORIDE,CL 92 mmol/L (100-108); CREATININE 0.9 mg/dL (0.6-1.0); EST CRCL DRUG DOSING (CG) 41.62 mL/min; ESTIMATED GFR 64 mL/min (>60); GLUCOSE RANDOM 165 mg/dL (74-106); PROTEIN TOTAL,TP 7.7 g/dL (6.4-8.2); SODIUM,NA 129 mmol/L (140-148); TSH ULTRASENSITIVE 1.489 uIU/mL (0.358-3.740)
[2025-01-22 05:24] LABS: BASOPHILS ABSOLUTE AUTO 0.02 K/uL (0.00-0.10); EOSINOPHILS ABSOLUTE AUTO 0.01 K/uL (0.00-0.40)
[2025-01-22 05:25] LABS: ANION GAP 18.9 mmol/L (5.0-14.0); POTASSIUM,K 2.9 mmol/L (3.6-5.2)
[2025-01-22 05:28] LABS: INR 2.3; PROTHROMBIN TIME 22.8 sec (9.2-10.6)
[2025-01-22] MEDS: Sodium Chloride 0.9% 1,000 ML IV SCH (05:28)
[2025-01-22] MEDS: Potassium Chloride 10 MEQ in Premix Bag 1 BAG IV ONE (05:29)
[2025-01-22] MEDS: LORazepam 2 MG/ML SDV IVPUSH ONE (06:20)
[2025-01-22] MEDS: Nitroglycerin/D5W 25 MG/250 ML BOTTLE IV SCH (07:10)
[2025-01-22] MEDS ORDERED: Heparin Sodium 5,000 Units/ML Vial IVPUSH ONE (07:25)
[2025-01-22] MEDS ORDERED: Heparin Sodium/D5W 25,000 UNITS/500 ML BAG IV SCH (07:30)
[2025-01-22 08:19] VITALS: BP 99/53; PULSE 126
== END 2025-01-22 08:51 ==
LOC: JP.ED 04:35
DX: I21.3 ST elevation (STEMI) myocardial infarction of unspecified site (principal); I10 Essential (primary) hypertension; I48.91 Unspecified atrial fibrillation; Z90.710 Acquired absence of both cervix and uterus; Z88.0 Allergy status to penicillin; Z88.1 Allergy status to other antibiotic agents; Z91.041 Radiographic dye allergy status; Z88.2 Allergy status to sulfonamides; Z79.890 Hormone replacement therapy; Z79.01 Long term (current) use of anticoagulants; Z79.899 Other long term (current) drug therapy
CPT/HCPCS: 36415; 71045; 80053; 83735; 84443; 84484; 85025; 85610; 85730; 93005; 96365; 96366; 96367; 96375; 99285; J2060; J2305; J3480; 93010; J7030

== ENCOUNTER 2025-09-08 11:31 | Inpatient (IN) | payer MEDICAID, MEDICARE ==
[2025-09-08 12:54] LABS: BASOPHILS ABSOLUTE AUTO 0.05 K/uL (0.00-0.10); BASOPHILS PERCENT AUTO 0.6 % (0.1-1.3); EOSINOPHILS ABSOLUTE AUTO 0.04 K/uL (0.00-0.40); EOSINOPHILS PERCENT AUTO 0.5 % (0.0-5.4); IMMATURE GRAN ABSOLUTE AUTO 0.04 K/uL (0.00-0.23); IMMATURE GRAN PERCENT AUTO 0.5 % (0.0-0.7); LYMPHOCYTES ABSOLUTE AUTO 0.95 K/uL (0.8-3.3); LYMPHOCYTES PERCENT AUTO 11.7 % (11.4-47.7); MONOCYTES ABSOLUTE AUTO 0.59 K/uL (0.20-0.90); MONOCYTES PERCENT AUTO 7.2 % (3.3-12.6); NEUTROPHILS ABSOLUTE AUTO 6.47 K/uL (1.0-7.6); NEUTROPHILS PERCENT AUTO 79.5 % (40.0-78.1); PLATELET COUNT,PLT 298 K/uL (130-375); RED BLOOD CELL COUNT 3.62 M/uL (3.77-5.24); WHITE BLOOD CELL COUNT,WBC 8.1 K/uL (3.2-11.0)
[2025-09-08 13:11] LABS: INR 1.2
[2025-09-08 13:22] LABS: A/G RATIO 0.7 (1.2-2.2); ALANINE AMINOTRANSFERASE,ALT 29 U/L (12-78); ASPARTATE AMNIOTRANSFERASE,AST 21 U/L (15-37); BILIRUBIN TOTAL 0.2 mg/dL (0.2-1.0); BLOOD UREA NITROGEN,BUN 19 mg/dL (7-18); CARBON DIOXIDE,CO2 25 mmol/L (21-32); CHLORIDE,CL 103 mmol/L (100-108); CREATININE 1.2 mg/dL (0.6-1.0); EST CRCL DRUG DOSING (CG) 31.21 mL/min; ESTIMATED GFR 45 mL/min (>60); GLUCOSE RANDOM 105 mg/dL (74-106); POTASSIUM,K 3.5 mmol/L (3.6-5.2); PRO B-TYPE NATRIUR PEPT,BNPPRO 387 pg/mL (5-450); PROTEIN TOTAL,TP 7.5 g/dL (6.4-8.2); SODIUM,NA 139 mmol/L (140-148); TROPONIN I HIGH SENSITIVITY 4.9 pg/mL (<=60.3)
[2025-09-08] MEDS ORDERED: Sodium Chloride 0.9% 10 ML Syringe FLUSH PRN (14:30)
[2025-09-08] MEDS ORDERED: Lidocaine 1% 2 ML ONE ×2 (15:28→17:11)
[2025-09-08] MEDS: diphenhydrAMINE 50 MG/ML SDV IVPUSH ONE (15:47)
[2025-09-08] MEDS: Iopamidol 755 Mg/ML 100 ML Bottle IV SCH (16:14)
[2025-09-08] MEDS ORDERED: Ondansetron 4 MG/2 ML SDV IV PRN (17:48)
[2025-09-08] MEDS ORDERED: Magnesium Hydroxide 400 MG/5 ML Susp 30 ML Cup PO PRN (17:48)
[2025-09-08] MEDS ORDERED: Ondansetron 4 MG Tab.DIS PO PRN (17:48)
[2025-09-08] MEDS: Potassium Chloride 20 MEQ Tab.ER PO ONE (18:12)
[2025-09-08] MEDS: Furosemide 40 MG/4 ML VIAL IVPUSH ONE (18:12)
[2025-09-08] MEDS: Nystatin Topical Powder 15 GM Bottle TOP SCH (21:17)
[2025-09-09 06:01] LABS: PLATELET COUNT,PLT 301.0 K/uL (130-375); RED BLOOD CELL COUNT 3.47 M/uL (3.77-5.24); WHITE BLOOD CELL COUNT,WBC 9.7 K/uL (3.2-11.0)
[2025-09-09 06:20] LABS: BLOOD UREA NITROGEN,BUN 20.0 mg/dL (7-18); CARBON DIOXIDE,CO2 25.0 mmol/L (21-32); CHLORIDE,CL 104.0 mmol/L (100-108); CREATININE 1.2 mg/dL (0.6-1.0); EST CRCL DRUG DOSING (CG) 31.21 mL/min; ESTIMATED GFR 45.0 mL/min (>60); GLUCOSE RANDOM 108.0 mg/dL (74-106); POTASSIUM,K 4.0 mmol/L (3.6-5.2); SODIUM,NA 140.0 mmol/L (140-148)
[2025-09-09] MEDS: Furosemide 40 MG/4 ML VIAL IVPUSH ONE (06:23)
[2025-09-09] MEDS: Nystatin Topical Powder 15 GM Bottle TOP SCH (08:10)
[2025-09-09] MEDS: Sennosides/Docusate Sodium 50-8.6 MG Tab PO PRN (20:20)
[2025-09-10 06:15] LABS: BLOOD UREA NITROGEN,BUN 19.0 mg/dL (7-18); CARBON DIOXIDE,CO2 28.0 mmol/L (21-32); CHLORIDE,CL 103.0 mmol/L (100-108); CREATININE 1.2 mg/dL (0.6-1.0); EST CRCL DRUG DOSING (CG) 31.21 mL/min; ESTIMATED GFR 45.0 mL/min (>60); GLUCOSE RANDOM 98.0 mg/dL (74-106); POTASSIUM,K 3.2 mmol/L (3.6-5.2); SODIUM,NA 140.0 mmol/L (140-148)
[2025-09-10] MEDS: Potassium Chloride 20 MEQ Tab.ER PO ONE (09:04)
[2025-09-11] MEDS: Potassium Chloride 10 MEQ Cap.ER PO SCH (09:10)
[2025-09-11 09:13] VITALS: BP 104/54; PULSE 65
== END 2025-09-11 10:30 | disposition home or self-care (01) | DRG 291 ==
LOC: JP.ED 11:31 → JP.MS 17:08
PROVIDERS: ADMIT Internal Medicine; ATTEND Internal Medicine
DX: R09.02 Hypoxemia (principal); I10 Essential (primary) hypertension; I13.0 Hypertensive heart and chronic kidney disease with heart failure and stage 1 through stage 4 chronic kidney disease, or unspecified chronic kidney disease; I50.33 Acute on chronic diastolic (congestive) heart failure; I48.91 Unspecified atrial fibrillation; H54.7 Unspecified visual loss; I25.10 Atherosclerotic heart disease of native coronary artery without angina pectoris; F41.9 Anxiety disorder, unspecified; D64.9 Anemia, unspecified; Z88.7 Allergy status to serum and vaccine; Z96.659 Presence of unspecified artificial knee joint; I48.0 Paroxysmal atrial fibrillation; N18.31 Chronic kidney disease, stage 3a; E87.6 Hypokalemia; Z88.1 Allergy status to other antibiotic agents; Z88.8 Allergy status to other drugs, medicaments and biological substances; Z88.5 Allergy status to narcotic agent; Z95.5 Presence of coronary angioplasty implant and graft; Z91.041 Radiographic dye allergy status; Z88.0 Allergy status to penicillin; Z90.89 Acquired absence of other organs; Z90.49 Acquired absence of other specified parts of digestive tract; Z90.710 Acquired absence of both cervix and uterus; Z88.2 Allergy status to sulfonamides; Z79.899 Other long term (current) drug therapy; Z79.01 Long term (current) use of anticoagulants; I25.2 Old myocardial infarction
CPT/HCPCS: 36415; 71045 ×2; 71275 ×2; 80053; 83605; 83880; 84484; 85025; 85610; 93005; 93010; 99285; A9270; J1200; J2003; J7030; J7512; Q9967; 36410; 80048; 83735; 85027; 96361; 96374; 99223; 99232; 99238; J1938

== ENCOUNTER 2025-09-14 12:45 | Emergency (ER) | payer MEDICARE, MEDICAID ==
[2025-09-14 13:36] LABS: BASOPHILS ABSOLUTE AUTO 0.05 K/uL (0.00-0.10); BASOPHILS PERCENT AUTO 0.9 % (0.1-1.3); EOSINOPHILS ABSOLUTE AUTO 0.12 K/uL (0.00-0.40); EOSINOPHILS PERCENT AUTO 2.1 % (0.0-5.4); IMMATURE GRAN PERCENT AUTO 0.3 % (0.0-0.7); LYMPHOCYTES ABSOLUTE AUTO 0.96 K/uL (0.8-3.3); LYMPHOCYTES PERCENT AUTO 16.7 % (11.4-47.7); MONOCYTES ABSOLUTE AUTO 0.58 K/uL (0.20-0.90); MONOCYTES PERCENT AUTO 10.1 % (3.3-12.6); NEUTROPHILS ABSOLUTE AUTO 4.01 K/uL (1.0-7.6); NEUTROPHILS PERCENT AUTO 69.9 % (40.0-78.1); PLATELET COUNT,PLT 276 K/uL (130-375); RED BLOOD CELL COUNT 3.58 M/uL (3.77-5.24); WHITE BLOOD CELL COUNT,WBC 5.7 K/uL (3.2-11.0)
[2025-09-14 13:37] LABS: IMMATURE GRAN ABSOLUTE AUTO 0.02 K/uL (0.00-0.23)
[2025-09-14 14:05] LABS: A/G RATIO 0.8 (1.2-2.2); ALANINE AMINOTRANSFERASE,ALT 29 U/L (12-78); ASPARTATE AMNIOTRANSFERASE,AST 21 U/L (15-37); BILIRUBIN TOTAL 0.3 mg/dL (0.2-1.0); BLOOD UREA NITROGEN,BUN 14 mg/dL (7-18); CARBON DIOXIDE,CO2 26 mmol/L (21-32); CHLORIDE,CL 103 mmol/L (100-108); CREATININE 1.1 mg/dL (0.6-1.0); EST CRCL DRUG DOSING (CG) 34.05 mL/min; ESTIMATED GFR 50 mL/min (>60); GLUCOSE RANDOM 91 mg/dL (74-106); POTASSIUM,K 3.6 mmol/L (3.6-5.2); PROTEIN TOTAL,TP 7.1 g/dL (6.4-8.2); SODIUM,NA 138 mmol/L (140-148)
[2025-09-14 16:02] VITALS: BP 115/54; PULSE 54
== END 2025-09-14 16:02 | disposition home or self-care (01) ==
LOC: JP.ED 12:45
DX: I11.0 Hypertensive heart disease with heart failure (principal); I50.9 Heart failure, unspecified; Z88.1 Allergy status to other antibiotic agents; Z88.2 Allergy status to sulfonamides; Z88.8 Allergy status to other drugs, medicaments and biological substances; Z91.041 Radiographic dye allergy status; Z79.890 Hormone replacement therapy; Z79.899 Other long term (current) drug therapy; Z90.49 Acquired absence of other specified parts of digestive tract; Z90.710 Acquired absence of both cervix and uterus
CPT/HCPCS: 36415; 71046; 71046-26; 80053; 83880; 85025; 93005; 93010; 99285